=== PATIENT | male | born 1950 | race Caucasian/White ===

== ENCOUNTER 2023-06-25 15:44 | Outpatient (REF) | payer MEDICARE, SELFPAY ==
[2023-06-25 16:10] LABS: Ammonia 14 umol/L (13-55)
[2023-06-25 17:20] LABS: Alanine Aminotransferase 45 U/L (0-40); Albumin Level 3.6 g/dL (3.5-5.0); Alkaline Phosphatase 98 U/L (39-117); Anion Gap 12 (12-20); Aspartate Amino Transferase 41 U/L (5-37); Bilirubin Direct 0.3 mg/dL (0.0-0.5); Bilirubin Total 0.7 mg/dL (0.0-1.0); Blood Urea Nitrogen 32 mg/dL (9-16); Calcium 9.4 mg/dL (8.4-10.2); Carbon Dioxide 30 mmol/L (22-29); Chloride 105 mmol/L (96-108); Estimated Glomerular Filt Rate > 60; Glucose Random 89 mg/dL (60-115); Potassium 5.6 mmol/L (3.3-5.1); Sodium 141 mmol/L (135-145); Total Protein 6.3 g/dL (6.5-8.0)
== END 2023-06-25 15:45 | disposition home or self-care (01) ==
LOC: HO.LAB 15:44
PROVIDERS: PCP Pediatrics; Visit Provider Psychiatry & Neurology Neurology
DX: R42 Dizziness and giddiness (principal)
CPT/HCPCS: 36415; 80053; 82140; 82248

== ENCOUNTER → 2024-08-24 13:23 | Outpatient (REF) | payer MEDICARE, SELFPAY ==
--- OUTSIDE RECORDS SUMMARY | 2024-08-24 15:24 | XMS_ITS | Clinical Summary ---
Author Organization [facility] Address [address] [place] [address] Care Team Providers Care Cattle Sorter Name Role Phone Ross Wise MD Primary Care Provider [phone] Allergies Active Allergy Reactions Criticality Noted Date Comments Bupropion Other (See Comments) High 09/18/2021 Ataxia Sulfamethoxazole-Trimethop rim Other (See Comments),Rash/Dermatitis High 02/07/2012 shingles Medications atorvastatin (LIPITOR) 20 MG tablet Take 1 tablet (20 mg total) by mouth daily. 4 Active PROzac 40 MG capsule Take 1 capsule (40 mg total) by mouth daily. Brand name medically necessary 4 Active lisinopril (PRINIVIL,ZeSTR IL) 5 MG tablet Take 1 tablet (5 mg total) by mouth daily. 4 Active meclizine (ANTIVERT) 12.5 MG tablet Take 1 tablet (12.5 mg total) by mouth 2 (two) times a day as needed. 4 Active divalproex (DEPAKOTE) [address] Take 1 tablet (250 mg total) by mouth 2 (two) times a day. Active Resolved Problems Problem Noted Date Diagnosed Date Resolved Date Seizure 09/09/2023 09/11/2023 Social History Tobacco Use Types Packs/Day Years Used Date Smoking Tobacco: Unknown Tobacco Cessation:Counseling Given: No Passive Exposure Comments:unknown-PT poor historian [facility] Utilities Answer Date Recorded In the past 12 months has e electric, gas, oil, or water company threatened to shut off services in your home? No 09/10/2023 AUDIT-C Answer Date Recorded Q1: How often do you have a drink containing alcohol? Never 09/10/2023 Q2: How many drinks containi ng alcohol do you have on a typical day when you are drinking? Patient does not drink Q3: How often do you have si x or more drinks on one occasion? Never 09/10/2023 Hunger Vital Sign Answer Date Recorded Within the past 12 months, y ou worried that your food would run out before you got the money to buy more. Never true 09/10/19 24 Within the past 12 months, t he food you bought just didn't last and you didn't have money to get more. Never true 09/10/2023 PRAPARE - Transportation Answer Date Re corded In the past 12 months, has l ack of transportation kept you from medical appointments or from getting medications? No 08/31 In the past 12 months, has l ack of transportation kept you from meetings, work, or from getting things needed for daily living? No 09/10/2023 Housing Stability Vital Sign Answer John e Recorded In the last 12 months, was t here a time when you were not able to pay the mortgage or rent on time? No 09/10/2023 In the last 12 months, how many places have you lived? 1 09/10/2023 In the last 12 months, was t here a time when you did not have a steady place to sleep or slept in a fdc (including now)? No 09/10/2023 Sex and Gender Information Value Date Recorded Sex Assigned at Male 09/09/2023 5:34 AM EDT Legal Sex Male 11:07 PM EDT Gender Identity Male 09/09/2023 5:34 AM EDT Sexual Orientation Choose not to disclose 2023 5:34 AM EDT Last Filed Vital Signs Vital Sign Reading Time Taken Comments Blood Pressure 98/60 09/11/2023 12:00 PM EDT Pulse 61 09/11/2023 12:00 PM EDT Temperature 36.2 C (97.1 F) 09/11/2023 12:00 PM EDT Respiratory Rate 18 09/11/2023 12:00 PM EDT Oxygen Saturation 97% 09/11/2023 12:00 PM EDT Inhaled Oxygen Concentration - - Weight 67.1 kg (148 lb) 09/10/2023 7:40 AM EDT Height 177.8 cm (5' 10 ) 09/10/2023 7:40 AM EDT Body Mass Index 21.24 09/10/2023 7:40 AM EDT Plan of Treatment Health Maintenance Due Date Last Done Comments Hepatitis C Virus Screening 1950 DTaP/Tdap/Td Vaccines (1 - Tdap) 02/07/1967 Pneumococcal Vaccines 50+ (1 of 1 - PCV) 02/07/1998 Zoster (Shingles) Vaccine (1 of 2) 02/07/1998 RSV Vaccine 60 years and older and Patients (1 - 1-dose 75+ series) 02/07/2023 COVID-19 Vaccine (4 - 2023-2 5 season) 2023 11/22/2021, 05/13/2020, 04/22/2020 Influenza Vaccine 10/01/2024 11/27/2022, 12/10/2021 Hepatitis B Vaccines Aged Out No long er eligible based on patient's age to complete this topic Insurance MEDICARE PART A & B [facility] Advance Directives * Full Code (Latest Code Status on File) Date Activated Date Inactivated Comments 09/09/2023 1:48 PM Care Teams Cattle Sorter Relationship Specialty Start Date End Date Ross Wise MD [address] [facility] [address] [place] [address] PCP - General Pediatric, General 09/09/23
== END ==
LOC: HO.SL 13:23
PROVIDERS: PCP Pediatrics; Visit Provider Psychiatry & Neurology Neurology
DX: G47.33 Obstructive sleep apnea (adult) (pediatric) (principal)
CPT/HCPCS: 95806

== ENCOUNTER → 2024-08-24 21:00 | Outpatient (BNV) | payer MEDICARE, SELFPAY | PROVIDERS: PCP Pediatrics; Visit Provider Internal Medicine | DX: G47.33 Obstructive sleep apnea (adult) (pediatric) (principal) | CPT/HCPCS: 95806 ==

== ENCOUNTER 2024-09-15 13:19 | Outpatient (AMB) | payer MEDICARE, SELFPAY ==
--- OUTSIDE RECORDS SUMMARY | 2024-09-15 14:07 | XMS_ITS | Referral Summary ---
Author Organization [facility] Address [address] [place] [address] Care Team Providers Care Prototyper Name Role Phone Ross Wise Primary Care Provider [phone] Allergies Active Allergy Reactions Criticality Noted Date Comments Sulfamethoxazole-Trimetho prim Rash,Other (see comments) High 02/07/2012 shingles Medications amLODIPine (NORVASC) 10 mg tablet Take 10 mg by mouth every evening. 3 8 Active PROZAC 40 mg capsule Take 120 mg by mouth once a day. 8 Active vitamin D3 1,000 unit capsule Take 1 capsule by mouth. Active aspirin-acetami nophen-caffeine (EXCEDRIN EXTRA STRENGTH) 250-250-65 mg per tablet Take 1 tablet by mouth every 6 hours as needed for headache. Active loratadine (CLARITIN) 10 mg tablet Take 1 tablet by mouth. Active multivitamin-Ca -iron-minerals (MULTIPLE VITAMIN, WOMENS) tablet 2 Active amantadine (SYMMETREL) 100 mg capsuleIndicati ons:Cataplexy and narcolepsy (HCC) Take 1 capsule (100 mg total) by mouth 2 times a day. Take once daily for the first week 60 capsule 2 8 Active Additional Information Patient not taking.Reported on 01/15/2018 multivitamin (THERAGRAN) tablet Take 1 tablet by mouth daily. Active lisinopriL (PRINIVIL,ZESTR IL) 10 mg tablet Take 10 mg by mouth once a day. 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 -Today we will recheck a spot albumin to creatinine ratio Assessment & Plan (10/28/2019 11:30 AM EDT): When last checked his spot albumin to creatinine ratio was less than 30 likely reflecting the use of lisinopril. -Cornerstone of therapy continues to be use of lisinopril currently dosed at 10 mg a day. Assessment & Plan (07/16/2018 12:11 PM EDT): When last checked his spot albumin to creatinine ratio was in the normal range. Today we will update that parameter mainstay of therapy continues to be lisinopril utilizing its anti-proteinuric effect. Assessment & Plan (01/16/2018 5:40 PM EST): His recent protein creatinine ratio improved to less than 30. Continue with lisinopril 10 mg daily. Assessment & Plan (07/07/2017 5:06 PM EDT): He has mild proteinuria of microalbumin creatinine ratio more than 30. Continue with lisinopril 10 mg daily. Vitamin D deficiency 07/07/2017 Assessment & Plan (01/16/2018 5:40 PM EST): Continue with vitamin D supplementation. Assessment & Plan (07/07/2017 5:06 PM EDT): Continue with current vitamin D supplementation. Hypokalemia 07/04/2017 Assessment & Plan (11/02/2020 4:06 PM EDT): When last checked his serum potassium was within the normal range today we will recheck this level to determine whether or not supplementation is required. Assessment & Plan (10/28/2019 11:31 AM EDT): His most recent serum potassium was 4.7 which is in the normal range. At this time he does not need potassium supplementation. We will recheck his values today. Assessment & Plan (07/16/2018 12:12 PM EDT): Today we will reevaluate his serum potassium level of note he is not been on potassium chloride pills. And I will remove this from his medication list. Assessment & Plan (01/16/2018 5:38 PM EST): His potassium is currently normal range. He is not on any continuous potassium supplementation. Assessment & Plan (07/07/2017 5:04 PM EDT): His recent potassium today 4.8. Can maintain adequate potassium rich diet. No indication for oral potassium supplementation as present time. Nephrolithiasis 07/04/2017 Assessment & Plan (11/02/2020 4:05 PM EDT): Since he has not had any episodes of renal colic passage of stones or gravelly material since our last visit and is able to maintain adequate fluid intake I do not see any indication to repeat a 24-hour stone risk profile at this time. -He is advised to contact me should he develop renal colic or passed a kidney stone. Assessment & Plan (10/28/2019 11:30 AM EDT): Since our last visit he has had no recurrence of kidney stones or passage of gravel. Of asked that he maintain appropriate hydration with approximately 2 L of fluid per day. Assessment & Plan (07/16/2018 12:11 PM EDT): Since her last visit he has had no recurrence of kidney stones. He continues to work on adequate hydration. Although he is having more difficulties swallowing. His does note coughing at times when he eats and drinks. They are seeing a specialist to help evaluate this. Assessment & Plan (01/16/2018 5:39 PM EST): He likely has previous history of calcium stones. Advised to increase gradual fluid intake with a target urine output more than 2 L a day. We will repeat his 24 hours urine for uro- risk assessment after improvement of his fluid intake. Assessment & Plan (07/07/2017 5:04 PM EDT): Unclear about the absence of renal stone in the past. We plan to do 24 hours urine analysis for urine risk assessment. Essential hypertension 07/04/2017 Assessment & Plan (11/02/2020 4:05 PM EDT): Based on his blood pressure reading today in clinic he continues to have excellent control of his blood pressure on amlodipine 10 mg a day and lisinopril 10 mg a day. -I see no reason to make adjustments to his antihypertensive regimen at this time. Assessment & Plan (10/28/2019 11:29 AM EDT): Based on blood pressure readings today he continues to have appropriate control of his blood pressure on amlodipine 10 mg a day and lisinopril 10 mg a day. I see no reason to make adjustments to his anti-hypertensive regimen Assessment & Plan (07/16/2018 12:10 PM EDT): Based on today's blood pressure reading he does have adequate control of his blood pressure on amlodipine 10 mg a day and lisinopril 10 mg a day. I see no reason to change his antihypertensive regimen. Assessment & Plan (01/16/2018 5:38 PM EST): His initial blood pressure was elevated and repeat blood pressure 145/80. His home blood pressure readings, systolic less than 130s. We will continue with his current home antihypertensive medications. Assessment & Plan (07/07/2017 5:03 PM EDT): His blood pressure currently controlled at target. We will continue with amlodipine and lisinopril at his current dose without any change. Social History Tobacco Use Types Packs/Day Years Used Date Smoking Tobacco: Never Smokeless Tobacco: Never Alcohol Use Standard Drinks/Week Comments No 0 (1 standard drink = 0.6 oz pur e alcohol) Sex and Gender Information Value Date Recorded Sex Assigned at Male 02/13/2022 1:40 PM EST Legal Sex Male 1:51 PM EDT Gender Identity Male 02/13/2022 1:40 PM EST Sexual Orientation Bisexual 02/13/2022 1: 40 PM EST Last Filed Vital Signs Vital Sign Reading Time Taken Comments Blood Pressure 105/68 11/02/2020 11:05 AM EDT Pulse 81 11/02/2020 11:05 AM EDT Temperature 36.5 C (97.7 F) 11/02/2020 11:05 AM EDT Respiratory Rate - - Oxygen Saturation - - Inhaled Oxygen Concentration - - Weight 69.9 kg (154 lb) 11/02/2020 11:05 AM EDT Height 175.3 cm (5' 9 ) 10/28/2019 10:43 AM EDT Body Mass Index 22.74 10/28/2019 10:43 AM EDT Plan of Treatment Not on file Procedures * Due to [place] Wiper law, this organization might not be sharing negative HIV tests. Procedure Name Priority Date/Time Associated Diagnosis Comments RENAL FUNCTION PANEL Routine 11/02/2020 11:43 AM EDT Hypokalemia from Last 3 Months or Most Recently Relevant to Health Maintenance Results * Due to [place] Wiper law, this organization might not be sharing negative HIV tests. * (ABNORMAL) Renal Function Panel (11/02/2020 11:43 AM EDT) NA 141 135 - 145 mmol/L 11/02/2020 12:23 PM EDT [facility] K 4.5 3.5 - 5.3 mmol/L 11/02/2020 12:23 PM EDT [facility] Cl 105 97 - 110 mmol/L 11/02/2020 12:23 PM EDT [facility] CO2 28 24 - 32 mmol/L 11/02/2020 12:23 PM EDT [facility] Anion Gap 8 5 - 15 11/02/2020 12:23 PM EDT [facility] Glucose 60(L) 70 - 99 mg/dL 11/02/2020 12:23 PM EDT [facility] BUN 37(H) 7 - 23 mg/dL 11/02/2020 12:23 PM EDT [facility] Creatinine 1.24 0.60 - 1.30 mg/dL 11/02/2020 12:23 PM EDT [facility] eGFR Non- 58(L) >=90 mL/min/BSA 11/02/2020 12:23 PM EDT [email or web address] eGFR 67(L) >=90 mL/min/BSA 11/02/2020 12:23 PM EDT [facility] Comment: Units = mL/min/1.73 m2 Glomerular Filtration Rate (GFR) is estimated based on the CKD-EPI Creatinine Equation (2009). Stage Description GFR 1 Normal >=90 mL/min/BSA 2 Mildly decreased GFR 60-89 mL/min/BSA 3 Moderately decreased GFR 30-59 mL/min/BSA 4 Severely decreased GFR 15-29 mL/min/BSA 5 Kidney Failure <15 mL/min/BSA Calcium 8.9 8.7 - 10.7 mg/dL 11/02/2020 12:23 PM EDT [facility] Phosphorus 2.6 2.5 - 4.5 mg/dL 11/02/2020 12:23 PM EDT [facility] Albumin 3.9 3.5 - 4.8 g/dL 11/02/2020 12:23 PM EDT [facility] Blood Structure of peripheral vein / Unknown Venipuncture / Unknown 11/02/2020 11:43 AM EDT 11/02/2020 11:55 AM EDT us Viet Carrizales MD LAB BLOOD ORDERABLES Final Result [facility] [address] [place] [address], from Last 3 Months or Most Recently Relevant to Health Maintenance Insurance MEDICARE [facility] Care Teams Prototyper Relationship Specialty Start Date End Date Ross Wise [address] [facility] [address] [place] [address] PCP - General Family Medicine 05/20/17
--- OUTSIDE RECORDS SUMMARY | 2024-09-15 14:07 | XMS_ITS | Clinical Summary ---
Author Organization [facility] Address [address] [place] [address] Care Team Providers Care Remittance Clerk Name Role Phone Ross Wise MD Primary Care Provider Allergies Active Allergy Reactions Criticality Noted Date [...] Given: No Passive Exposure Comments:unknown-PT poor historian [facility] Utilities Answer Date Recorded In the past [...] place to sleep or slept in a assisted (including now)? No 09/10/2023 Sex and Gender [...] topic Insurance MEDICARE PART A & B [facility] Advance Directives * Full Code (Latest Code Status on File) Date Activated Date Inactivated Comments 09/09/2023 1:48 PM Care Teams Remittance Clerk Relationship Specialty Start Date End Date Ross Wise MD [address] [facility] [address] [place] [address] PCP - General Pediatric, General 09/09/23
--- OUTSIDE RECORDS SUMMARY | 2024-09-15 14:07 | XMS_ITS ---
Author Name [facility] Results Test Name/Text Value Interpretation Date Range Source Bilirub SerPl-mCnc 0.8 mg/dL Normal 09/11/2023 0.2 - 1 [facility] ALT SerPl-cCnc 71.0 U/L Above high normal 09/11/2023 10 - 5 5 [facility] Albumin SerPl-mCnc 3.6 g/dL Normal 09/11/2023 3.4 - 4.8 [facility]CT CO2 SerPl-sCnc 26.0 mmol/L Normal 09/11/2023 22 - 33 HH CCT Albumin/Glob SerPl 1.6 Ratio Normal 09/11/2023 1 - 3 [facility] Chloride SerPl-sCnc 105.0 mmol/L Normal 09/11/2023 98 - 1 07 [facility] Anion Gap Bld-sCnc 10.0 Normal 09/11/2023 7 - 17 H[facility]CT GFR/BSA.pred SerPlBld [id number] 70.0 Normal 09/11/2023 59 - [facility]CT Glucose SerPl-mCnc 83.0 mg/dL Normal 09/11/2023 65 - 99 H[facility]CT Prot SerPl-mCnc 5.9 g/dL Below low normal 09/11/2023 6.3 - 8.3 H[facility] BUN/Creat SerPl 20.0 Ratio Normal 09/11/2023 10 - 25 HH CCT Sodium SerPl-sCnc 141.0 mmol/L Normal 09/11/2023 136 - 14 5 H[facility]CT Creat SerPl-mCnc 1.1 mg/dL Normal 09/11/2023 0.5 - 1.3 HH CCT BUN SerPl-mCnc 22.0 mg/dL Above high normal 09/11/2023 8 - 2 1 H[facility]CT Potassium SerPl-sCnc 4.2 mmol/L Normal 09/11/2023 3.4 - 5 .3 HHCCT ALP SerPl-cCnc 86.0 U/L Normal 09/11/2023 45 - 128 HHCC T AST SerPl-cCnc 91.0 U/L Above high normal 09/11/2023 10 - 5 5 H[facility]CT Calcium SerPl-mCnc 8.8 mg/dL Normal 09/11/2023 8.7 - 10.5 H[facility]CT Globulin Ser Calc-mCnc 2.3 g/dL Normal 09/11/2023 1.5 - 3.9 H[facility]CT WBC num Bld Auto 7.0 Thou/uL Normal 09/11/2023 4 - 11 H[facility] Hct VFr Bld Auto 41.2 % Normal 09/11/2023 39 - 54 HH CCT Platelet num Bld Auto 175.0 Thou/uL Normal 09/11/2023 150 - 450 H[facility] PMV Bld Auto 11.7 fL Normal 09/11/2023 7.5 - 12.5 H[facility]CT RBC num Bld Auto 4.29 Mil/uL Below low normal 09/11/2023 4.5 - 6.2 H[facility]CT MCV RBC Auto 96.0 fL Normal 09/11/2023 80 - 100 H[facility]CT RDW RBC Auto-Rto 11.7 % Normal 09/11/2023 11.5 - 14.5 H[facility]CT Hgb Bld-mCnc 13.4 g/dL Normal 09/11/2023 13 - 17.7 HHCCT MCH RBC Qn Auto 31.2 pg Above high normal 09/11/2023 27 - 31 HHCCT MCHC RBC Auto-mCnc 32.5 g/dL Normal 09/11/2023 30 - 36 HHCCT AST SerPl-cCnc 85.0 U/L Above high normal 09/10/2023 10 - 5 5 H[facility]CT Albumin/Glob SerPl 1.5 Ratio Normal 09/10/2023 1 - 3 H[facility]CT BUN SerPl-mCnc 24.0 mg/dL Above high normal 09/10/2023 8 - 2 1 H[facility]CT Potassium SerPl-sCnc 4.5 mmol/L Normal 09/10/2023 3.4 - 5 .3 HHCCT GFR/BSA.pred SerPlBld [id number] 78.0 Normal 09/10/2023 59 - HHCCT ALP SerPl-cCnc 94.0 U/L Normal 09/10/2023 45 - 128 HHCC T BUN/Creat SerPl 24.0 Ratio Normal 09/10/2023 10 - 25 HH CCT Globulin Ser Calc-mCnc 2.4 g/dL Normal 09/10/2023 1.5 - 3.9 HHCCT CO2 SerPl-sCnc 25.0 mmol/L Normal 09/10/2023 22 - 33 HH CCT Albumin SerPl-mCnc 3.6 g/dL Normal 09/10/2023 3.4 - 4.8 HHCCT Glucose SerPl-mCnc 71.0 mg/dL Normal 09/10/2023 65 - 99 H[facility]CT Anion Gap Bld-sCnc 9.0 Normal 09/10/2023 7 - 17 H[facility]CT Creat SerPl-mCnc 1.0 mg/dL Normal 09/10/2023 0.5 - 1.3 HH CCT Sodium SerPl-sCnc 136.0 mmol/L Normal 09/10/2023 136 - 14 5 HHCCT Bilirub SerPl-mCnc 1.2 mg/dL Above high normal 09/10/2023 0. 2 - 1 HHCCT ALT SerPl-cCnc 61.0 U/L Above high normal 09/10/2023 10 - 5 5 H[facility]CT Chloride SerPl-sCnc 102.0 mmol/L Normal 09/10/2023 98 - 1 07 HHCCT Prot SerPl-mCnc 6.0 g/dL Below low normal 09/10/2023 6.3 - 8.3 HHCCT Calcium SerPl-mCnc 9.0 mg/dL Normal 09/10/2023 8.7 - 10.5 HHCCT Phosphate SerPl-mCnc 2.8 mg/dL Normal 09/09/2023 2.7 - 4. 5 H[facility]CT Chloride SerPl-sCnc 103.0 mmol/L Normal 09/09/2023 98 - 1 07 HHCCT BUN SerPl-mCnc 21.0 mg/dL Normal 09/09/2023 8 - [address] Anion Gap Bld-sCnc 11.0 Normal 09/09/2023 7 - 17 HHCCT BUN/Creat SerPl 21.0 Ratio Normal 09/09/2023 10 - 25 HH CCT Potassium SerPl-sCnc 4.6 mmol/L Normal 09/09/2023 3.4 - 5 .3 HHCCT Sodium SerPl-sCnc 138.0 mmol/L Normal 09/09/2023 136 - 14 5 HHCCT Calcium SerPl-mCnc 8.7 mg/dL Normal 09/09/2023 8.7 - 10.5 HHCCT GFR/BSA.pred SerPlBld [id number] 78.0 Normal 09/09/2023 59 - HHCCT CO2 SerPl-sCnc 24.0 mmol/L Normal 09/09/2023 22 - 33 HH CCT Glucose SerPl-mCnc 74.0 mg/dL Normal 09/09/2023 65 - 99 HHCCT Creat SerPl-mCnc 1.0 mg/dL Normal 09/09/2023 0.5 - 1.3 HH CCT Magnesium SerPl-mCnc 2.0 mg/dL Normal 09/09/2023 1.6 - 2. 7 H[facility]CT Monocytes num Bld Auto 0.48 Thou/uL Normal 09/09/2023 0.2 - 1.5 HHCCT Imm Granulocytes/leuk NFr Bld Auto 1.2 % Normal 09/09/2023 H[facility]CT MCHC RBC Auto-mCnc 32.2 g/dL Normal 09/09/2023 30 - 36 HHCCT MCH RBC Qn Auto 31.4 pg Above high normal 09/09/2023 27 - 31 H[facility]CT RBC num Bld Auto 4.4 Mil/uL Below low normal 09/09/2023 4.5 - 6.2 HHCCT PMV Bld Auto 11.8 fL Normal 09/09/2023 7.5 - 12.5 HHCCT Lymphocytes num Bld Auto 1.2 Thou/uL Below low normal 09/09/2023 1.5 - 4.5 HHCCT Neutrophils/leuk NFr Bld Auto 77.6 % Normal 09/09/2023 HHCCT WBC num Bld Auto 9.0 Thou/uL Normal 09/09/2023 4 - 11 HHCCT Imm Granulocytes num Bld Auto 0.11 Thou/uL Above high normal 09/09/2023 0 - 0.1 HHCCT Eosinophil num Bld Auto 0.2 Thou/uL Normal 09/09/2023 0 - 0.7 HHCCT Monocytes/leuk NFr Bld Auto 5.3 % Normal 09/09/2023 HHCCT Basophils/leuk NFr Bld Auto 0.4 % Normal 09/09/2023 HHCCT Basophils num Bld Auto 0.04 Thou/uL Normal 09/09/2023 0 - 0.2 HHCCT Eosinophil/leuk NFr Bld Auto 2.2 % Normal 09/09/2023 HHCCT MCV RBC Auto 97.0 fL Normal 09/09/2023 80 - 100 HHCCT Hgb Bld-mCnc 13.8 g/dL Normal 09/09/2023 13 - 17.7 HHCCT Platelet num Bld Auto 176.0 Thou/uL Normal 09/09/2023 150 - 450 H[facility]CT RDW RBC Auto-Rto 11.7 % Normal 09/09/2023 11.5 - 14.5 HHCCT Hct VFr Bld Auto 42.8 % Normal 09/09/2023 39 - 54 HH CCT Lymphocytes/leuk NFr Bld Auto 13.3 % Normal 09/09/2023 HHCCT Neutrophils num Bld Auto 7.0 Thou/uL Normal 09/09/2023 2 - 7.5 HHCCT Valproate Free SerPl-mCnc 9.9 mg/L Normal 09/11/2023 4.8 - 17.3 HHCCT Valproate SerPl-mCnc 62.0 mg/L Normal 09/09/2023 50 - 100 H[facility]CT WBC num/area UrnS HPF 0.0 per hpf Normal 09/09/2023 0 - 4 HHCCT RBC num/area UrnS HPF >25.0 per hpf Above high normal 2023 0 - 4 H[facility]CT Color Ur Yellow Normal 09/09/2023 H[facility]CT Leukocyte esterase Ur Ql Strip Negative Normal 09/09/2023 - [facility]CT Clarity Ur Clear Normal 09/09/2023 H[facility]CT Sp Gr Ur Strip 1.05 Above high normal 09/09/2023 1.003 - 1.03 HHCCT Nitrite Ur Ql Strip Negative Normal 09/09/2023 - HHCCT pH Ur Strip 6.0 Normal 09/09/2023 5 - 8 HHCCT Bilirub Ur Strip-mCnc Negative Normal 09/09/2023 - [facility] Prot Ur Strip-mCnc Negative Normal 09/09/2023 - [facility] Hgb Ur Ql Strip Small Abnormal 09/09/2023 - [facility] CT Ketones Ur Strip-mCnc Trace Abnormal 09/09/2023 - [facility] Glucose Ur Strip-nc 0.0 mg/dL Normal 09/09/2023 0 - 99 [facility] Encounters Encounter Type Encounter Reason Primary Diagnosis Location Date Inpatient Unspecified convulsions Unspecified convulsions [place] [facility] 09/09/2023 Care Team Organization Name Specialty Phone Email [facility] Date [facility] 09/09/2023 [facility] 09/09/2023 05/19/2024 [place] [facility] 09/09/2023
--- NOTE | 2024-09-15 14:15 | MHC.OFFVIS ---
Intake Visit Reasons: VALENTÍN, Narcolepsy, Sz Allergies No Known Allergies Allergy (Verified 09/13/24 12:38) HPI Comments Details: Sleeps 18 hrs a day. Not using CPAP. No Sz recurrence. Nightmares are worse. Constant HOLLIDAY for which he takes 2 Excedrin twice a day.? Seeing psychiatrist tomorrow . Last Sz on September 07. Restarted on Depakote 500mg bid . September 17.??for Rehab for 3 weeks. No Sz since. He is back to his baseline with poor balance and his knee gives out. He is in w/c and transfers to bed and chair by himself with effort. OT / PT at home. Vertigo is better. Swallowing and aspiration is better. Not using his new CPAP mask. 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 He falls frequently, and had 2 concussions in January 2023 and hit his head. On January 25 he had a 15 min. generalized seizure that was witnessed and he was taken to the hospital where a CT scan and CT angiogram was negative. He was started on Keppra 250 mg twice a day which he was unable to take because of side effects and mental changes and developed a lot of agitation with it. He apparently had an EEG, routinely, which was normal. No previous history of seizures. 01/25/[address] angio normal EEG apparently normal.08/26/24 Sleep study shows severe VALENTÍN with O2 sats down to 79% an dbelow 88% for 33 minutes. [facility] Medical History (Updated 09/15/24 @ 14:26 by Abebe Belcher MD) VALENTÍN (obstructive sleep apnea) Narcolepsy Cerebellar ataxia Seizure disorder Physical Exam Neuro Other: Neurological: Abnormal neurological findings:??Cerebellar ataxia including appendicular ataxia on dppaup-dy-jgum test.? Walks with a walker.? Nystagmus on lateral gaze.?Mental Status:??alert and oriented X 3,?Normal attention, orientation, memory and affect.?Cranial Nerves:??Pupils are equal, round and reactive to light. Fundoscopy shows normal disc bilaterally. External occular muscles are intact with nystagmus on lateral gaze. Visual pope are full, no ptosis. Face is symmetrical, no facial weakness or droop. Facial sensations are normal. Tongue protrudes in midline. Palate elevates symmetrically. Shoulder shrugging is normal..?Motor Examination:??Normal muscle tone, bulk and strength,?No atrophy or fasciculations,?No drift of the extended upper extremities,?Deep tendon reflexes are 2+?,?Plantars are flexor?.?Straight Leg Raising:??90 degrees.?Sensory Exam:??Normal light touch, temperature, pinprick, vibration and joint-position sensations?,?Rhomberg sign is absent.?Coordination:??Cerebellar? ataxia,?no titubation,?zsngae-kt-zuth, touw-wblm-imhn test and rapid alternating movements were abnormal.?Gait Exam:??Broad-based cerebellar gait using a walker.? Unable to stand on a narrow base or walk with a narrow base, without falling.?Cerebellar Signs:??Dysmetria on Kxuqph-qe-adfl and icsi-lt-chqk?.?Extrapyramidal System:??No tremor, rigidity with normal facial expressions,?No bradykinesia, no bradyphrenia. Normal arm swing and posture. No propulsion or retropulsion.?Speech:??Normal,?no dysphasia or dysarthria..? Mini Mental Status Exam: Level of Consciousness:??Alert.?Orientation:??Knows correct year, month, date, day and season,?Knows correct city, county and state. Knows correct location and floor.?Registration:??Able to register 3 objects.?Attention:??Serial 7's performed accurately.?Recall:??Able to recall 3 out of 3 objects.?Language:??Normal spontaneous speech, fluency, repetition,naming, comprehension, reading and writing.?Total Score:??30/30.? General Examination: GENERAL APPEARANCE:??normal,?in no acute distress.?HEAD:??normocephalic,?atraumatic.?EYES:??sclera non-icteric,?conjunctiva clear.?EARS:??auditory canal clear,?tympanic membrane intact, clear.?NOSE:??no lesions.?ORAL CAVITY:??gums normal,?mucosa moist,?no lesions.?THROAT:??clear.?NECK/THYROID:??no cervical lymphadenopathy,?thyroid normal,?neck supple, full range of motion,?no carotid bruit.?SKIN:??no rashes,?no significant birthmarks.?HEART:??S1, S2 normal,?no murmurs.?LUNGS:??clear anteriorly and posteriorly.?CHEST:??no gross rib deformity,?clear to auscultation.?BACK:??normal exam of spine.?EXTREMITIES:??no edema.?PERIPHERAL PULSES:??normal.?PSYCH:??alert, oriented,?cognitive function intact,?cooperative with exam.? 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 Sleep specialty referral Orders: Referrals Sleep Medicine Referral G47.33 - Obstructive sleep apnea (adult) (pediatric), G47.419 - Narcolepsy without cataplexy Coding Level of Care Code Est Pt Level 4 (26284) Diagnoses Narcolepsy G47.419 VALENTÍN (obstructive sleep apnea) G47.33
== END 2024-09-15 14:33 | disposition home or self-care (01) ==
LOC: HO.HSM 13:20
PROVIDERS: PCP Pediatrics; Referring Provider Pediatrics; Visit Provider Psychiatry & Neurology Neurology
DX: G47.419 Narcolepsy without cataplexy (principal); G47.33 Obstructive sleep apnea (adult) (pediatric)
CPT/HCPCS: 99214

== ENCOUNTER → 2024-09-15 13:19 | Outpatient (BNVA) | payer MEDICARE, SELFPAY | PROVIDERS: PCP Pediatrics; Referring Provider Pediatrics; Visit Provider Psychiatry & Neurology Neurology | DX: G47.419 Narcolepsy without cataplexy (principal); G47.33 Obstructive sleep apnea (adult) (pediatric) | CPT/HCPCS: 99212 ==

== ENCOUNTER 2024-12-14 15:05 | Outpatient (AMB) | payer MEDICARE, SELFPAY ==
--- NOTE | 2024-12-14 15:10 | A.OFFVIS_ITS ---
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 Patient had in-lab PSG through [employer], and HST through [employer]. Patient goes to bed around 12am and wakes up at 1pm next day. naps 3-4hrs. Patient states excessive sleep since he was in High school. Tried Xyrem, modafinil. Looking to trial Sunosi. Uses CPAP does not feel like helps. [facility] for [facility]. Accompanied by: Spouse Allergies No Known Allergies Allergy (Verified 12/14/24 15:19) HPI Comments Details: 74 year old male presents for an evaluation of Narcolepsy. 08/2024 HST c/w AHI of 32 and oxygen nadirs to 91% with <88% for 33 min. Start cpap therapy and correct for nocturnal hypoxemia with in lab psg and titration once compliant on therapy. Feb 2024 he had a seizure lasting 30-min, his entire body shook, his eyes rolled into the back of his head, and he lost conscious, did not bite his tongue or have urinary incontenence. He was taken to [facility] and started on Divalproex 250mg po BID. Pt has a h/o cerebellar ataxia, he loses balance, has multiple falls due to tripping, and nystagmus, vertigo with dysarthria. He has difficulty with fine motor activities and 90% of the time is wheelchair bound. He has a home health aide visit him 1x a week and helps him to shower and get dressed. He needs support with all his ADLs. He was diagnosed with Narcolepsy by [facility] and followed by [facility] for years per his . He has tried Modafinil, Xyrem and would now like to start on Sunosi for his symptoms of Narcolepsy disorder. He goes to bed at midnight and wakes up at noon. He can easily fall asleep anywhere. He goes to sleep for a couple of hours after supper. He sleeps about 16 hours a day and does not respond to stimulants. His mood is irritable, has depression and gets anxious so he takes Lexapro 20mg po daily. His diet is stable, memory is poor. [facility] Medical History VALENTÍN (obstructive sleep apnea) Narcolepsy Cerebellar ataxia Seizure disorder Physical Exam Vital Signs: Last Vital Signs Pulse 71 12/14/24 15:14 BP 118/74 12/14/24 15:14 Pulse Ox 96 12/14/24 15:14 Oxygen Delivery Method Room Air 12/14/24 15:14 BMI result Body Mass Index 22.3 wheel chair bound today. Const General: comfortable and tired appearing Nutritional Appearance: average body habitus Orientation/consciousness: patient oriented x3 HEENT Face and sinus: Yes face symmetric Teeth and gingiva: other (mallampti score is 3) Neck Other: unable to rotate the neck, unable to flex or extend Resp Effort & Inspection: normal respiratory effort and able to speak in complete sentences Neuro Other: lateral gaze nystagmus wheel chair bound Dysmetria General: patient oriented x3 Cranial nerves: Yes Midline tongue present and Yes Ability to bilaterally elevate shoulders present Cognition (Neuro): normal cognition Gait exam (Neuro): Assistive device used Motor exam (neuro): 5/5 motor strength present throughout and Normal motor muscle tone present throughout Deep tendon reflexes (DTR's): Right triceps reflex intensity grade: 2+, Left triceps reflex intensity grade: 2+, Rt Biceps (C5, C6): 2+, Left biceps reflex intensity grade: 2+, Right brachioradialis reflex intensity grade: 2+, Left brachioradialis reflex intensity grade: 2+, Right patellar reflex intensity grade: 2+ and Left patellar reflex intensity grade: 2+ Psych Appearance: well kempt Speech and movement: Slowed movement present (Neuro) Thought process: Normal thought process present Thought content: Normal thought content present Results Reviewed Results Reviewed: HST reviewed with pt AHI is 32 and o2 nadirs to 90% with <88% for over 33 min. Start cpap therapy at [id number] and monitor for compliance once. Will send him for in lab titration study with MSLT. Assessment & Plan Assessment & Plan (1) VALENTÍN (obstructive sleep apnea): Code(s): G47.33 - Obstructive sleep apnea (adult) (pediatric) Category: Medical (2) Narcolepsy: Code(s): G47.419 - Narcolepsy without cataplexy Category: Medical Qualifiers: Narcolepsy type: due to underlying condition without cataplexy Qualified Code(s): G47.429 - Narcolepsy in conditions classified elsewhere without cataplexy (3) Hypersomnia: Code(s): G47.10 - Hypersomnia, unspecified Category: Medical (4) Excessive daytime sleepiness: Code(s): G47.19 - Other hypersomnia Category: Medical Plan VALENTÍN on cpap therapy continue using cpap until in lab titration to correct the hypoxemia. ESS MSLT to rule in Narcolepsy Nocturnal hypoxemia and <88% for over 33 min, PSG in lab titration to correct hypoxemia. Medications Will start him on Sunosi once Prior Authorization is approved, pending MSLT [facility] per pt. Past meds tried Modafinil was ineffective Xyrem was ineffective Orders: Orders RT sleep testing - MSLT Today G47.10 - Hypersomnia, unspecified, G47.19 - Other hypersomnia, G47.33 - Obstructive sleep apnea (adult) (pediatric), G47.419 - Narcolepsy without cataplexy RT PSG in-lab sleep titration Today G47.10 - Hypersomnia, unspecified, G47.19 - Other hypersomnia, G47.33 - Obstructive sleep apnea (adult) (pediatric), G47.419 - Narcolepsy without cataplexy Patient Instructions: Do you have daytime tiredness or fatigue? yes Do you fall asleep when inactive? yes Have you ever had episodes of sudden weakness? yes Have you ever had episodes of sudden weakness associated with strong emotions? yes Coding Level of Care Code New Pt Level 4 (22964) Diagnoses VALENTÍN (obstructive sleep apnea) G47.33 Narcolepsy due to underlying condition without cataplexy G47.429 Narcolepsy type: due to underlying condition without cataplexy Hypersomnia G47.10 Excessive daytime sleepiness G47.19
[2024-12-14 15:14] VITALS: BP 118/74; PULSE 71; O2SAT 96; BMI 22.3
--- OUTSIDE RECORDS SUMMARY | 2024-12-14 17:57 | XMS_ITS | Encounter Summary ---
Author Organization [facility] Address [address] [place] [address] Phone Care Team Providers Care Safety Admin Assistant Name Role Phone Ross Wise MD Primary Care Provider [phone] Ross Wise MD Unavailable [phone] Ange Padilla OT Unavailable [phone] Ange Padilla OT Unavailable [phone] Carrie Cho MD Unavailable [phone] Ange Padilla OT Unavailable [phone] Reason for Referral * Occupational Therapy (Routine) - Closed Specialty Diagnoses / Procedures Referred By Lamont t Referred To Contact Occupational Therapy Diagnoses Encounter for rehabilitation Ross Wise MD Phone: tel: fax: [email or web address] [address] [address] Phone: tel: Referral ID Status Reason Start Date Expiration Date Visits Re quested Visits Authorized [id number] Closed 10/05/2020 10/05/2021 1 1 Encounter Details Date Type Department Care Team (Latest Contact Info) Description 10/05/2020 Transcribe Orders [facility] [address] [place] [address] Ross Wise MD [address] [place] [address], [address] [place] [address] [email or web address] Encounter for rehabilitation (Primary Dx) Social History Tobacco Use Types Packs/Day Years Used Date Smoking Tobacco: Never Smokeless Tobacco: Never Alcohol Use Standard Drinks/Week Comments Not Currently 0 (1 standard drink = 0.6 oz pur e alcohol) Sex and Gender Information Value Date Recorded Sex Assigned at Male 07/27/2018 8:05 PM EDT Legal Sex Male 6:21 PM EST Gender Identity Male 07/27/2018 8:05 PM EDT Sexual Orientation Straight 09/02/2021 9: 00 PM EDT documented as of this encounter Plan of Treatment Upcoming Encounters Date Type Department Care Team (Late st Contact Info) Description 01/11/2025 12:30 PM EST Office Visit [facility] [address] [place] [address] Ross Wise MD [address] [place] [address], [address] [place] [address] [email or web address] Zahra Albert OT [address] [place] [address] 02/16/2025 2:40 PM EST Office Visit [facility] [address] [place] [address] [address]rd Floor, [address] [place] [address] Ang Golden MD [address] [place] [address], [address] [address] Scheduled Referrals Name Type Priority Associated Diagnoses Orde r Schedule Ambulatory referral to [facility] Occupational Therapy Outpatient Referral Routine Encounter for rehabilitation Ordered: 10/05/2020 documented as of this encounter Visit Diagnoses Diagnosis Encounter for rehabilitation- Primary documented in this encounter Additional Health Concerns Infection Onset Date Last Indicated Resolved Time CoV-Risk Comment:Neg covid 12/15/2022 12/15/2022 12/16/2022 7:41 AM E DT Assessment Noted Time PHQ-2 Depression Total Score: 1 11/04/19 20 3:40 PM EDT documented as of this encounter Care Teams Safety Admin Assistant Relationship Specialty Start Date End Date Ross Wise MD [address] [facility], [address] [place] [address] PCP - General Family Medicine 01/12/14 Ross Wise MD [address] [facility], [address] [place] [address] [email or web address] Assigned Provider 06/07/23 Ange Padilla, OT [address] [place] [address] [email or web address] Director Of Strategic Sales 12/10/21 2 Ange Padilla, OT [address] [place] [address] Transitions Director Of Strategic Sales 12/27/21 01/01/22 Carrie Cho MD [address] [place] [address] Neurology 02/21/23 Ange Padilla, OT [address] [place] [address] Transitions Director Of Strategic SalesTechnical Account Manager Therapy 09/15/2301/24 documented as of this encounter Additional Source Comments The information contained in this document represents components of the legal health record. It is not the complete legal health record.[facility]
--- OUTSIDE RECORDS SUMMARY | 2024-12-14 17:57 | XMS_ITS | Encounter Summary ---
Author Organization [facility] Address [facility] [employer] [address] [address] Phone Care Team Providers Care Indigo Vat Tender Cloth Name Role Phone Ross Wise MD Primary Care Provider [phone] Ross Wise MD Unavailable [phone] Ange Padilla OT Unavailable [phone] Ange Padilla OT Unavailable [phone] Carrie Cho MD Unavailable [phone] Ange Padilla OT Unavailable [phone] Encounter Details Date Type Department Care Team (Late st Contact Info) Description 12/08/2021 Procedure Pass [facility], [address] [address] Social History Tobacco Use Types Packs/Day Years [...] PM EDT documented as of this encounter Functional Status * Calculated C-SSRS Risk Score (Lifetime/Recent) Answer Date of Assessment Author No Risk Indicated 12/08/2021 4:14 PM EDT Kristen Perrin RN * [place] Suicide Severity Rating Scale (Screener/Recent Self-Report) Question Answer Date of Assessment Author 1. Wish to be (Past 1 Month) No 022 4:14 PM EDT Kristen Art, CHANCE 2. Non-Specific Active Suici danae Thoughts (Past 1 Month) No 12/08/2021 4:14 PM EDT Jasmine Art RN 6. Suicidal Behavior (Lifetime) No 4:14 PM EDT Kristen Art RN documented as of this encounter Plan of Treatment Upcoming Encounters Date Type Department Care Team (Late st Contact Info) Description 01/11/2025 12:30 PM EST Office Visit [facility] [address] [place] [address] Ross Wise MD [address] [place] [address], [address] [place] [address] Zahra Albert OT 8 [place] [address] [email or web address] 02/16/2025 2:40 PM EST Office Visit [facility] [address] [place] [address] 3rd Floor, [address] [place] [address] Ang Golden MD [address] [place] [address], [address] [address] documented as of this encounter Visit Diagnoses Not on filedocumented in this encounter Additional Health Concerns Infection Onset Date Last Indicated Resolved Time CoV-Risk Comment:Neg covid 12/15/2022 12/15/2022 12/16/2022 7:41 AM E DT Assessment Noted Time PHQ-2 Depression Total Score: 1 11/04/19 20 3:40 PM EDT documented as of this encounter Care Teams Indigo Vat Tender Cloth Relationship Specialty Start Date End Date Ross Wise MD [address] [place] [address], [address] [place] [address] PCP - General Family Medicine 01/12/14 Ross Wise MD [address] [facility], [address] [place] [address] Insurance Assigned Provider 06/07/23 Ange Padilla, OT [address] [place] [address] Transitions Welder Assistant 12/10/21 2 Ange Padilla, OT [address] [place] [address] Transitions Welder Assistant 12/27/21 01/01/22 Carrie Cho MD [address] [place] [address] Neurology 02/21/23 Ange Padilla, OT [address] [place] [address] Transitions Welder AssistantSales Correspondence Clerk Therapy 09/15/2301/24 documented as of this encounter Additional Source Comments The information contained in this document represents components of the legal health record. It is not the complete legal health record.[facility]
--- OUTSIDE RECORDS SUMMARY | 2024-12-14 17:57 | XMS_ITS | Encounter Summary ---
Author Organization [facility] Address [address] [place] [address] Phone Care Team Providers Care Revenue Stamp Cutter Name Role Phone Ross Wise MD Primary Care Provider [phone] Ross Wise MD Unavailable [phone] Ange Padilla OT Unavailable [phone] Ange Padilla OT Unavailable [phone] Carrie Cho MD Unavailable [phone] Ange Padilla OT Unavailable [phone] Reason for Referral * Physical Therapy (Routine) - Closed Specialty Diagnoses / Procedures Referred By Lamont t Referred To Contact Physical Therapy Diagnoses Spinocerebellar ataxia Ataxia Carrie Cho MD Phone: tel: fax: [facility] [address] [place] [address] Phone: tel: Referral ID Status Reason Start Date Expiration Date Visits Re quested Visits Authorized [id number] Closed 12/28/2018 12/29/2019 99 99 Encounter Details Date Type Department Care Team (Latest Contact Info) Description 12/28/2018 Transcribe Orders [facility] [address] [place] [address] Carrie Cho MD [address] [place] [address] Spinocerebellar ataxia (Primary Dx); Ataxia Social History Tobacco Use Types Packs/Day Years [...] Description 01/11/2025 12:30 PM EST Office Visit [address] [place] [address] Ross Wise MD [address] [place] [address], [address] [place] [address] Zahra Albert OT 8 [place] [address] 02/16/2025 2:40 PM EST Office Visit [facility] [address] [place] [address] [address]rd Floor, [address] [place] [address] Ang Golden MD [address] [place] [address], [address] [place] [address] Scheduled Referrals Name Type Priority Associated Diagnoses Order Schedule Ambulatory referral to [facility] Physical Therapy Outpatient Referral Routine Spinocerebellar ataxia Ataxia Ordered: 12/28/2018 documented as of this encounter Visit Diagnoses 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 Lack of coordination documented in this encounter Additional Health Concerns Infection Onset Date Last Indicated Resolved Time CoV-Risk Comment:Neg covid 12/15/2022 12/15/2022 12/16/2022 7:41 AM E DT documented as of this encounter Care Teams Revenue Stamp Cutter Relationship Specialty Start Date End Date Ross Wise MD [address] [facility], [address] [place] [address] PCP - General Family Medicine 01/12/14 Ross Wise MD [address] [facility], [address] [place] [address] Insurance Assigned Provider 06/07/23 Ange Padilla, OT [address] [place] [address] Transitions Svp 12/10/21 2 Ange Padilla, OT [address] [place] [address] Transitions Svp 12/27/21 01/01/22 Carrie Cho MD [address] [place] [address] Neurology 02/21/23 Ange Padilla, OT [address] [place] [address] Transitions SvpWaste Collection Driver Therapy 09/15/2301/24 documented as of this encounter Additional Source Comments The information contained in this document represents components of the legal health record. It is not the complete legal health record.[facility]
--- OUTSIDE RECORDS SUMMARY | 2024-12-14 17:57 | XMS_ITS | Encounter Summary ---
Author Organization [facility] Address [facility] [address] [address] Phone Care Team Providers Care Laborer Aquatic Life Name Role Phone Ross Wise MD Primary Care Provider [phone] Ross Wise MD Unavailable [phone] Ange Padilla OT Unavailable [phone] Ange Padilla OT Unavailable [phone] Carrie Cho MD Unavailable [phone] Ange Padilla OT Unavailable [phone] Encounter Details Date Type Department Care Team (Late st Contact Info) Description 12/08/2021 Procedure Pass [facility], [facility] Scan - [address] [address] Social History Tobacco Use Types Packs/Day Years [...] 4:14 PM EDT Kristen Perrin RN * [place] Suicide Severity Rating Scale (Screener/Recent Self-Report) Question [...] 01/11/2025 12:30 PM EST Office Visit [facility] [address] [place] [address] Ross Wise MD [address] [place] [address], [address] [place] [address] Zahra Albert OT 8 [place] [address] 02/16/2025 2:40 PM EST Office Visit [facility] [address] [place] [address] 3rd Floor, [address] [place] [address] Ang Golden MD [address] [place] [address], [address] [address] documented as of this encounter Visit Diagnoses Not on filedocumented in this encounter Additional Health Concerns Infection Onset Date Last Indicated Resolved Time CoV-Risk Comment:Neg covid 12/15/2022 12/15/2022 12/16/2022 7:41 AM E DT Assessment Noted Time PHQ-2 Depression Total Score: 1 11/04/19 20 3:40 PM EDT documented as of this encounter Care Teams Laborer Aquatic Life Relationship Specialty Start Date End Date Ross Wise MD [address] [place] [address], [address] [place] [address] PCP - General Family Medicine 01/12/14 Ross Wise MD [address] [facility], [address] [place] [address] Insurance Assigned Provider 06/07/23 Ange Padilla, OT 30 [place] [address] Transitions Tribunal Member 12/10/21 2 Ange Padilla, OT [address] [place] [address] Transitions Tribunal Member 12/27/21 01/01/22 Carrie Cho MD [address] [place] [address] Neurology 02/21/23 Ange Padilla, OT [address] [place] [address] Transitions Tribunal MemberInternet Specialist Therapy 09/15/2301/24 documented as of this encounter Additional Source Comments The information contained in this document represents components of the legal health record. It is not the complete legal health record.[facility]
--- OUTSIDE RECORDS SUMMARY | 2024-12-14 17:57 | XMS_ITS | Encounter Summary ---
Author Organization [facility] Address [facility] [employer] [address] [address] Phone Care Team Providers Care Pharmacy Coordinator Name Role Phone Ross Wise MD Primary Care Provider [phone] Ross Wise MD Unavailable [phone] Ange Padilla OT Unavailable [phone] Ange Padilla OT Unavailable [phone] Carrie Cho MD Unavailable [phone] Ange Padilla OT Unavailable [phone] Encounter Details Date Type Department Care Team (Late st Contact Info) Description 11/25/2020 Procedure Pass [facility], Ct Scan - [address] [address] Social History Tobacco Use Types Packs/Day Years [...] Description 01/11/2025 12:30 PM EST Office Visit [facility] [address] [place] [address] Ross Wise MD [address] [facility] [place] [address] Zahra Albert, OT [address] [place] [address] 02/16/2025 2:40 PM EST Office Visit [facility] [address] [place] [address] [address]rd Floor, [address] [place] [address] Ang Golden MD [address] [facility], [address] [place] [address] documented as of this encounter Visit Diagnoses Not on filedocumented in this encounter Additional Health Concerns Infection Onset Date Last Indicated Resolved Time CoV-Risk Comment:Neg covid 12/15/2022 12/15/2022 12/16/2022 7:41 AM E DT Assessment Noted Time PHQ-2 Depression Total Score: 1 11/04/19 20 3:40 PM EDT documented as of this encounter Care Teams Pharmacy Coordinator Relationship Specialty Start Date End Date Ross Wise MD [address] [facility] [place] [address] PCP - General Family Medicine 01/12/14 Ross Wise MD [address] [facility] [place] [address] Insurance Assigned Provider 06/07/23 Ange Padilla, OT [address] [place] [address] Transitions Fruit Grower 12/10/21 2 Ange Padilla, OT [address] [place] [address] [email or web address] Transitions Fruit Grower 12/27/21 01/01/22 Carrie Cho MD [address] [place] [address] Neurology 02/21/23 Ange Padilla, OT [address] [place] [address] [email or web address] Transitions Fruit GrowerWelder Gas Tungsten Arc Therapy 09/15/2301/24 documented as of this encounter Additional Source Comments The information contained in this document represents components of the legal health record. It is not the complete legal health record.[facility]
--- OUTSIDE RECORDS SUMMARY | 2024-12-14 17:57 | XMS_ITS | Encounter Summary ---
Author Organization [facility] Address [facility] [employer] [address] [address] Phone Care Team Providers Care Supervisor Maintenance And Custodians Name Role Phone Ross Wise MD Primary Care Provider [phone] Ross Wise MD Unavailable [phone] Ange Padilla OT Unavailable Ange Padilla OT Unavailable [phone] Carrie Cho MD Unavailable [phone] Ange Padilla OT Unavailable [phone] Encounter Details Date Type Department Care Team (Late st Contact Info) Description 12/10/2021 Procedure Pass [facility] [address] [place] [address] Social History Tobacco Use Types Packs/Day Years [...] Encounters Date Type Department Care Team (Late Contact Info) Description 01/11/2025 12:30 PM EST Office Visit [facility] [address] [place] [address] Ross Wise MD [address] [facility], [address] [place] [address] Zahra Albert, OT 8 [place] [address] 02/16/2025 2:40 PM EST Office Visit [facility] [address] [facility] 3rd Floor, [address] [place] [address] Ang Golden MD [address] [facility], [address] [place] [address] documented as of this encounter Visit Diagnoses Not on filedocumented in this encounter Additional Health Concerns Infection Onset Date Last Indicated Resolved Time CoV-Risk Comment:Neg covid 12/15/2022 12/15/2022 12/16/2022 7:41 AM E DT Assessment Noted Time PHQ-2 Depression Total Score: 1 11/04/19 20 3:40 PM EDT documented as of this encounter Care Teams Supervisor Maintenance And Custodians Relationship Specialty Start Date End Date Ross Wise MD [address] [facility] [place] [address] PCP - General Family Medicine 01/12/14 Ross Wise MD [address] [facility] [place] [address] Insurance Assigned Provider 06/07/23 Ange Padilla, OT [address] [place] [address] Transitions Hebrew Cantor 12/10/21 2 Ange Padilla, OT [address] [place] [address] [email or web address] Transitions Hebrew Cantor 12/27/21 01/01/22 Carrie Cho MD [address] [place] [address] Neurology 02/21/23 Ange Padilla, OT [address] [place] [address] Transitions Hebrew CantorSales Program Coordinator Therapy 09/15/2301/24 documented as of this encounter Additional Source Comments The information contained in this document represents components of the legal health record. It is not the complete legal health record.[facility]
--- OUTSIDE RECORDS SUMMARY | 2024-12-14 17:57 | XMS_ITS | Encounter Summary ---
Author Organization [facility] Address [address] [place] [address] Phone Care Team Providers Care Sterile Supply Technician Name Role Phone Ross Wise MD Primary Care Provider [phone] Ross Wise MD Unavailable [phone] Ange Padilla OT Unavailable [phone] Ange Padilla OT Unavailable [phone] Carrie Cho MD Unavailable [phone] Ange Padilla OT Unavailable [phone] Reason for Referral * Speech Therapy (Routine) - Closed Specialty Diagnoses / Procedures Referred By Contmami t Referred To Contact Speech Pathology Diagnoses Ataxia Carrie Cho MD Phone: tel: fax: [facility] [address] [place] [address] Phone: tel: Referral ID Status Reason Start Date Expiration Date Visits Re quested Visits Authorized [id number] Closed 12/28/2018 12/29/2019 99 [phone] Encounter Details Date Type Department Care Team (Latest Contact Info) Description 12/28/2018 Transcribe Orders Psychiatric [address] [place] [address] [place] [address] Carrie Cho MD [address] [place] [address] Ataxia (Primary Dx) Social History Tobacco Use Types [...] Description 01/11/2025 12:30 PM EST Office Visit [address] [place] [address] Ross Wise MD [address] [place] [address], [address] [place] [address] Zahra Albert OT 8 [place] [address] 02/16/2025 2:40 PM EST Office Visit [facility] [address] [place] [address] [address]rd Floor, [address] [place] [address] Ang Golden MD [address] [place] [address], [address] [address] documented as of this encounter Procedures Procedure Name Priority Date/Time Associated Diagnosis Comments AMB REFERRAL TO [facility] SPEECH AND LANGUAGE PATHOLOGY Routine 02/03/2019 12:38 PM EST Ataxia documented in this encounter Results * Ambulatory referral to [facility] Speech Language Pathology (02/03/2019 12:38 PM EST) us Carrie Cho MD AMB [facility] REFERRALS Final Res ult documented in this encounter Visit Diagnoses Diagnosis Ataxia- Primary Lack of coordination documented in this encounter Additional Health Concerns Infection Onset Date Last Indicated Resolved Time CoV-Risk Comment:Neg covid 12/15/2022 12/15/2022 12/16/2022 7:41 AM E DT documented as of this encounter Care Teams Sterile Supply Technician Relationship Specialty Start Date End Date Ross Wise MD 22 [facility], [address] [place] [address] PCP - General Family Medicine 01/12/14 Ross Wise MD 22 [facility], [address] [place] [address] Insurance Assigned Provider 06/07/23 Ange Padilla, OT [address] [place] [address] Transitions Electro Optical Engineer 12/10/21 2 Ange Padilla, OT [address] [place] [address] Transitions Electro Optical Engineer 12/27/21 01/01/22 Carrie Cho MD [address] [place] [address] Neurology 02/21/23 Ange Padilla, OT 30 [place] [address] Transitions Electro Optical EngineerAir And Hydronic Balancing Technician Therapy 09/15/2301/24 documented as of this encounter Additional Source Comments The information contained in this document represents components of the legal health record. It is not the complete legal health record.[facility]
--- OUTSIDE RECORDS SUMMARY | 2024-12-14 17:57 | XMS_ITS | Encounter Summary ---
Author Organization [facility] Address [facility] [employer] [address] [address] Phone Care Team Providers Care Lathe Turner Name Role Phone Ross Wise MD Primary Care Provider Ross Wise MD Unavailable [phone] Ange Padilla OT Unavailable [phone] Ange Padilla OT Unavailable [phone] Carrie Cho MD Unavailable [phone] Ange Padilla OT Unavailable [phone] Encounter Details Date Type Department Care Team (Late st Contact Info) Description 12/10/2021 Procedure Pass [facility] [address] [place] [address] Social History Tobacco Use Types Packs/Day Years [...] Description 01/11/2025 12:30 PM EST Office Visit [facility] [address] [place] [address] Ross Wise MD 22 [facility], [address] [place] [address] Zahra Albert, OT 8 [place] [address] 02/16/2025 2:40 PM EST Office Visit [facility] 22 [facility] 3rd Floor, [address] [place] [address] Ang Golden MD [address] [facility], [address] [place] [address] documented as of this encounter Visit Diagnoses Not on filedocumented in this encounter Additional Health Concerns Infection Onset Date Last Indicated Resolved Time CoV-Risk Comment:Neg covid 12/15/2022 12/15/2022 12/16/2022 7:41 AM E DT Assessment Noted Time PHQ-2 Depression Total Score: 1 11/04/19 20 3:40 PM EDT documented as of this encounter Care Teams Lathe Turner Relationship Specialty Start Date End Date Ross Wise MD [address] [facility], [address] [place] [address] PCP - General Family Medicine 01/12/14 Ross Wise MD [address] [facility], [address] [place] [address] Insurance Assigned Provider 06/07/23 Ange Padilla, OT [address] [place] [address] Transitions Regional Owner Operator Truck Driver 12/10/21 2 Ange Padilla, OT [address] [place] [address] [email or web address] Transitions Regional Owner Operator Truck Driver 12/27/21 01/01/22 Carrie Cho MD [address] [place] [address] Neurology 02/21/23 Ange Padilla, OT [address] [place] [address] Transitions Regional Owner Operator Truck DriverGlass Production Machine Operator Therapy 09/15/2301/24 documented as of this encounter Additional Source Comments The information contained in this document represents components of the legal health record. It is not the complete legal health record.[facility]
--- OUTSIDE RECORDS SUMMARY | 2024-12-14 17:57 | XMS_ITS | Clinical Summary ---
Author Organization [facility] Address [facility] [address] [address] Phone Care Team Providers Care Talent Management Manager Name Role Phone Ellen Gomes MD Primary Care Provider [phone] Ellen Gomes MD Unavailable [phone] Carrie Cho MD Unavailable [phone] Allergies Active Allergy Reactions Criticality Noted Date Comments Bactrim (Sulfamethoxazole-Trimethoprim ) Other (See Comments) Medium 08/15/2014 shingles Bupropion Hcl Other (See Comments) High 09/18/2021 Ataxia Medications multivitamin per tablet Take 1 tablet by mouth daily. Active cholecalciferol (VITAMIN D3) 25 MCG (1,000 unit) tablet Take 5,000 Units by mouth daily. Active diazePAM (DIASTAT ACUDIAL) 5-7.5-10 mg KitIndications:Se izure Place 10 mg rectally once as needed (seizure). 2 each 3 Active divalproex (DEPAKOTE) [address] tablet Take 250 mg by mouth 2 (two) times a day. Active aspirin-acetamino phen-caffeine (EXCEDRIN MIGRAINE) 250-250-65 mg per tablet Take 2 tablets by mouth daily as needed for pain (specific location in comments). Active lisinopril (PRINIVIL,ZESTRIL ) 5 MG tabletIndications :Essential hypertension take one tablet by mouth every day 90 tablet 3 4 Active meclizine (ANTIVERT) 12.5 mg tablet Take 12.5 mg by mouth 2 (two) times a day. 4 Active miscellaneous medical supply MiscIndications:P eriodic paralysis Transport wheelchair 1 mL 4 Active loratadine (CLARITIN) 10 mg tablet Take 10 mg by mouth daily. Active tamsulosin (FLOMAX) 0.4 mg Cap Take 0.4 mg by mouth nightly at bedtime. 5 Active amoxicillin (AMOXIL) 500 MG capsule TAKE 4 CAPSULES BY MOUTH 1 HOUR PRIOR TO DENTAL APPT 5 Active triamcinolone acetonide 0.025 % creamIndications: Irritant contact dermatitis, unspecified trigger Apply topically 2 (two) times a day as needed (rash). 454 g 5 Active escitalopram oxalate (LEXAPRO) 20 MG tabletIndications :Recurrent major depressive disorder, in partial remission Take 1 tablet (20 mg total) by mouth daily. 30 tablet 2 5 Active Active Problems Problem Noted Date Diagnosed Date Age-related cataract of both eyes 08/12/2024 Assessment & Plan (08/15/2024 9:30 PM EDT): Stable chronic neuodegenerative disorder, no med changes prior to surgery. Anxiety state 01/22/2024 Assessment & Plan (01/22/2024 12:44 PM EST): Currently taking 80mg, previously 40mg was ineffective. He was on a much higher dose 120mg daily, unclear if it was more effective and weight loss was noted. Orders: PROZAC 40 mg capsule; Take 2 capsules (80 mg total) by mouth daily. Ventricular tachycardia, unspecified 03/07/2023 Epilepsy 03/07/2023 Assessment & Plan (10/29/2024 4:18 PM EDT): >>ASSESSMENT AND PLAN FOR SEIZURE WRITTEN ON 03/09/2023 10:03 PM BY ELLEN GOMES MD Increased somnolence on Keppra, normal EEG, will defer to Dr. Tse regarding decision on therapies moving forward for seizure. Assessment & Plan (10/29/2024 4:18 PM EDT): >>ASSESSMENT AND PLAN FOR SEIZURE WRITTEN ON 10/19/2023 9:01 PM BY ELLEN GOMES MD Concern for possible metabolic seizure. No findings on imaging to explain seizure. Recommend follow-up with neurology. I also recommend that he discuss with neurology specialist for cerebellar ataxia. Assessment & Plan (10/29/2024 4:18 PM EDT): >>ASSESSMENT AND PLAN FOR SEIZURE WRITTEN ON 01/22/2024 12:44 PM BY ELLEN GOMES MD Followed by neurology, on depakote. Orders: Valproic acid; Future CBC and differential; Future Comprehensive metabolic panel; Future Concussion wth loss of consciousness of 30 minut es or less 11/27/2022 Assessment & Plan (11/29/2022 7:57 AM EDT): Stable, no intracranial hemorrhage. Recurrent major depressive disorder, in partial remission 08/27/2022 Assessment & Plan (11/02/2024 8:15 PM EDT): Lexapro is recommended as an alternative to Prozac due to its similar efficacy and lower risk of lowering the seizure threshold compared to Celexa. A message has been sent to the pharmacy team to confirm the availability of Lexapro and to determine the appropriate dosage for the switch. - Medication sent to pharmacy. Orders: Ambulatory referral to [facility] Physical Therapy Assessment & Plan (10/19/2023 9:02 PM EDT): Current dose of fluoxetine remains high. Recommend behavioral health consult. I think that higher than normal dose of fluoxetine may be contributing to potential risk for seizure. Med consult advised. Assessment & Plan (03/07/2023 1:38 PM EST): Increased depressive symptoms on Keppra. Discuss plan with Dr. Tse. Assessment & Plan (08/27/2022 8:51 PM EDT): Stable on combination of fluoxetine and Wellbutrin. Urinary obstruction 07/02/2022 History of syncope 12/26/2021 Assessment & Plan (12/26/2021 6:50 PM EDT): Patient was here 2 weeks ago after a 2-minute unconscious event with associated body shaking followed by a postictal. He initially had a blank look and began moving his arms and legs and jerking movement. He was seen by [facility] neurology during his hospitalization here and it was felt that he likely had a seizure with Johnson's paralysis. It was his first episode and he was not started on anticonvulsants, was recommended to follow-up with neurology He denies further seizure activity since his discharge He did have an extensive work-up during that hospital stay including EEG and MRI We will continue seizure precautions and neurochecks PT and OT Arrhythmia 12/26/2021 Assessment & Plan (02/05/2024 2:57 PM EST): While hospitalized and also on a follow-up MCT monitor has had some short runs of what was possibly NSVT versus SVT with aberrancy. Historically been maintained off of beta-blockade. Currently denying any symptomatic recurrence of arrhythmia. Overall doing well from the cardiovascular standpoint. Medication changes indicated at this time. He can follow-up and see one of the x ray electronics wireman in a year Assessment & Plan (01/10/2022 3:10 PM EST): He has no documented sustained arrhythmias. He does have an asymptomatic run of 11 beats of nonsustained VT. He has never had a documented myocardial infarction or any other heart abnormality. I would recommend completing his ambulatory heart monitoring the results. I did offer him beta-blockade therapy but he is not interested at this time. He otherwise feels well and has not had any symptoms including syncope or presyncope. He denies any chest pain or exertional shortness of breath. Assessment & Plan (12/26/2021 7:15 PM EDT): The patient was told to report to hospital today by his PCP as he reportedly had runs of VT including an episode of 11 beats in the transportation aid hours on his awake overnight monitor he was asleep and was not symptomatic. Interestingly, his states that he has been taking some caffeine pills for the last few days. He denies any other ingestions or any alcohol intake. He is also on very high-dose Prozac, 120 mg daily I will hold in the morning in case cardiology disagrees with this dose Patient denies any weakness today dizziness or syncope/near syncope, has not had any palpitations or chest pain We will check electrolytes, magnesium and phosphorus pending, potassium is 4.5. Will have cardiology consult, he just had an echocardiogram done on the . awake overnight monitor Osteoarthritis of knees, bilateral 06/15/2020 Abnormal weight loss 11/04/2019 Assessment & Plan (06/23/2022 8:18 PM EDT): Unclear cause of weight loss, evident loss of mass in proximal muscles. Check labs, including prealbumin. Suspect neurodegenerative cause. Consider occult malignancy, nutritiional deficiency. Cerebellar degeneration 11/04/2019 Assessment & Plan (07/04/2024 8:44 PM EDT): Severe headaches with vertigo and nightmares. - Discontinue Excedrin and monitor symptoms. - Follow-up with neurologist recommended. Orders: Ambulatory referral to External Modified Barium Swallow Assessment & Plan (03/07/2023 1:38 PM EST): Has followup next week with Dr. Tse, for further discussion. Assessment & Plan (08/27/2022 8:51 PM EDT): Progressive ataxia, now with muscle wasting. Recommend PT to help with safety/mobility needs. Assessment & Plan (12/09/2021 3:24 PM EDT): Dx =Episodic ataxia with progressive cerebellar ataxia narcolepsy cataplexy. Patient last seen by neurology at [facility] urgent jani Tse for consult re genetics. 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 Episodes triggered by stress patient reports that he has a neurologist that he sees regularly at [facility] , seen yearly, Dr Cho?. Patient presently not on any medications for his ataxia disorder Has tried medication in the past. Obstructive sleep apnea hypopnea, severe 019 Overview (06/03/2018): Sleep test at home with Erin Nava, on CPAP 03/2018 Primary narcolepsy with cataplexy 04/11/2018 Assessment & Plan (11/02/2024 8:15 PM EDT): Followed by neurology. Assessment & Plan (08/15/2024 9:30 PM EDT): Following with neurology - Home sleep study scheduled for 08/24/2024 to further evaluate his condition. Assessment & Plan (01/22/2024 12:44 PM EST): ? About med management. Recommend he discuss with neurology as I do not think that this is related to pulmonary process. Periodic paralysis 04/11/2018 Assessment & Plan (01/22/2024 12:44 PM EST): Needs a transport wheelchair. Orders: miscellaneous medical supply Misc; Transport wheelchair Tubular adenoma of colon 04/11/2018 Depression 04/11/2018 Assessment & Plan (12/08/2021 5:07 PM EDT): Continue Prozac 120 mg daily Assessment & Plan (06/03/2021 11:37 AM EDT): He has tolerated the addition of Wellbutrin. Mood seems a bit better. He is more willing to accept assistance and in the past. Is able to contract for safety today. 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 Labs advised, home eval with PT for mobility recommendations. He has a wheelchair, but with increasing weakness, suspect he will need motorized, electrical mobility device. Orders: Comprehensive metabolic panel; Future CBC and differential; Future Referral to Home Health [facility] Assessment & Plan (04/08/2024 7:44 AM EST): Progressive ataxia, muscle wasting, deconditioning. My concern is that his health is failing and he is having difficulties transferring and performing self-care. PT OT referral to VNA placed to assist with supports in the home for safe mobility. He might need a Giovani lift, sit to stand chair etc. Assessment & Plan (06/23/2022 8:17 PM EDT): Continued difficulty with gait, with increase loss of mass evident on exam. Recommend re-evaluation with neuro regarding his condition. Essential hypertension 04/11/2018 Assessment & Plan (11/02/2024 8:15 PM EDT): Low bp lately. - Continue to monitor blood pressure regularly. Resume taking lisinopril if blood pressure increases. Assessment & Plan (07/04/2024 8:44 PM EDT): BP readings inconsistent, today's 96/60. Systolic BP fluctuates 220 to 100. VNA monitored BP, now around 100. - Withhold lisinopril if systolic BP <100. If BP remains low, continue withholding; if BP elevates, resume lisinopril. Assessment & Plan (11/29/2022 7:54 AM EDT): There is an episode of hypotension which may have precipitated his fall as well as his ataxia which is congenital. Recommend decreasing his lisinopril to 5 mg daily, monitor blood pressures at home. Assessment & Plan (08/27/2022 8:52 PM EDT): Normotensive, continue lisinopril 10 mg daily. Assessment & Plan (11/04/2019 10:39 PM EDT): Stable, continue current regimen. Persistent proteinuria 07/07/2017 Overview (11/04/2019): Last Assessment & Plan: When last checked his spot albumin to creatinine ratio was less than 30 likely reflecting the use of lisinopril. -Cornerstone of therapy continues to be use of lisinopril currently dosed at 10 mg a day. 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 Rm at [facility] Assessment & Plan (08/15/2024 9:30 PM EDT): Following with neurology Started with home health care assistance, which is working out well. - Assistance provided with daily activities, including showering and mobility. - Ordered a new rodriguez for the scooter to improve mobility. - Monitoring the effectiveness of home health care support and making necessary adjustments. Assessment & Plan (10/19/2023 9:04 PM EDT): Follow-up with subspecialty neurology for worsening ataxia, falls recommended. I would recommend he at least consider virtual consult to discuss recent clinical course and recommendations for therapy to manage symptoms Assessment & Plan (06/03/2021 11:36 AM EDT): Patient is currently undecided whether he would like to participate with the undiagnosed disease at [facility]. He is generally fatigued, and feeling depressed. I advised that it would be reasonable for him to see the neurologist in [place] for consultation and then make a decision. There may be a therapies that were previously not possible, but with advancement technology he may be able to gain some function and quality of life. Benign essential hypertension 01/16/2017 Assessment & Plan (12/26/2021 7:10 PM EDT): The patient is not currently on antihypertensives, will monitor BP, cardiology consultation as above He was taken off of multiple antihypertensives last week, lisinopril and Norvasc Assessment & Plan (12/09/2021 3:08 PM EDT): Holdoutpatient medical regimen, blood pressure running low Migraine 01/16/2017 Episodic ataxia 01/16/2017 Assessment & Plan (12/26/2021 6:48 PM EDT): history of episodic ataxia with progressive cerebellar ataxia as well as narcolepsy and cataplexy. Patient is [facility] at the [facility] by Dr Cho, patient has had genetic studies, he had ataxia which started as a young person and his disorder is associated with symptoms of dysphagia dysarthria bladder issues sleep disorder headaches episodes of global weakness GI symptoms and autonomic dysfunction per prior H&P. Will order PT and OT IBS (irritable colon syndrome) 01/16/2017 HSV-1 (herpes simplex virus 1) infection 017 Overview (01/16/2017): Lower lip Vitamin D deficiency 01/16/2017 Elevated PSA 01/16/2017 Assessment & Plan (06/23/2022 8:21 PM EDT): Recheck PSA. Uncoded Pedigree August 15, 2014 08/16/2014 Overview (02/07/2015): Pedigree August 15, 2014 Diagnosis unknown 03/01/2014 Overview (03/12/2023): Text: Narcolepsy With Cataplexy Resolved Problems Problem Noted Date Diagnosed Date Resolved Date Altered mental status 12/08/20212022 Assessment & Plan (12/09/2021 3:11 PM EDT): Patient came to the hospital by ambulance after an episode of altered consciousness. Story is concerning for seizure. Patient reports he has never had a seizure. He has had episodes when he had difficulty moving arms and legs but he reports they were nothing like the episode yesterday. He has no recollection of the episode Neurology consulted in the ED. Note not available. ED provider reports MRI brain EEG recommended Follow-up with neurology after results of these tests available, probably tomorrow Arthritis 04/11/2018 03/07/2023 Hypokalemia 07/04/2017 03/07/2023 Overview (11/04/2019): Last Assessment & Plan: His most recent serum potassium was 4.7 which is in the normal range. At this time he does not need potassium supplementation. We will recheck his values today. Narcolepsy 01/16/2017 04/11/2018 Osteoarthritis 01/16/2017 04/11/2018 Overview (01/16/2017): Moderate tricompartment osteoarthritis w/lateral & medial meniscan tears Left Knee Nephrolithiasis 01/16/2017 04/11/2018 Acquired short leg syndrome 01/16/2017 04/11/2018 Depression 01/16/2017 04/11/2018 Renal cyst 01/16/2017 04/11/2018 Rotator cuff syndrome 01/16/20172018 Encounters Date Type Department Care Team Description 12/01/2024 Telephone [facility] [place] [address] Ellen Gomes MD Request For Order(s) 11/30/2024 12:30 PM EDT Home Care Visit [facility] [address] [place] [address] Rosalind Obrien, PT NON ADMIT HOME HEALTH VISIT 11/24/2024 Home Care Visit [facility] [address] [place] [address] Dasha Ruiz, PT CASE COMMUNICATION 11/20/2024 Home Care Visit [facility] [address] [place] [address] Nanci Encinas, RN CASE COMMUNICATION 11/19/2024 Home Care Visit [facility] [address] [place] [address] Musa Muhammad, PT CASE COMMUNICATION 11/18/2024 Home Care Visit [facility] [address] [place] [address] Musa Muhammad, PT CASE COMMUNICATION 11/17/2024 Home Care Visit [facility] [address] [place] [address] Musa Muhammad, PT TELEPHONE ENCOUNTER 10/30/2024 Orders Only [facility] [address] [place] [phone] Homehealth, Interface MD Melchor 10/29/2024 4:00 PM EDT Office Visit [address] [place] [address] Ellen Gomes MD Recurrent major depressive disorder, in partial remission (Primary Dx); Familial cerebellar ataxia; Seizure; Primary narcolepsy with cataplexy; Essential hypertension 10/25/[address] [place] [address] Ellen Gomes MD Medication Prior Authorization (Prozac 40 mg capsules) 10/15/[address] [place] [address] Ellen Gomes MD Medication Refill 10/12/[address] [place] [address] Ellen Gomes MD DME (Wheelchair ); Referral (VNA) from Last 3 Months Immunizations Immunization Administration Dates Next Due COVID-19 (Pre-12/23) Pfizer Vaccine, Bivalent 12 + 11/22/2021 COVID-19 (Pre-12/23) Pfizer Vaccine, mRNA, PF ,04/22/2020 Influenza High-Dose Quadrivalent Preservative Fr ee IM 11/27/2022,12/10/2021 Influenza High-Dose Trivalent Preservative Free IM 01/21/2024 Pneumococcal conjugate PCV20 10/15/2021 Pneumococcal polysaccharide PPSV23 11/04/2019 Tdap 11/25/2020,10/01/2016 Zoster recombinant 08/27/2022 Family History Medical History Relation Comments Other Daughter hypokalemic pepe odic paralysis/ SC8 positive Ataxia Niece SCA 8 followed a t [place] Ataxia Sister 1 paralysis Ataxia Sister 2 Relation Status Comments Daughter (Age 33) Niece Alive Sister 1 Sister 2 Alive Social History Tobacco Use Types Packs/Day Years Used Date Smoking Tobacco: Never Smokeless Tobacco: Never Alcohol Use Standard Drinks/Week Comments Not Currently 0 (1 standard drink = 0.6 oz pur e alcohol) Home Health Assessment: Transportation Answer Date Recorded Lack of Transportation (Medical) No 05/28/2024 Lack of Transportation (Non-Medical) No 05/28/2024 Patient Unable or Declines to Respond No 05/28/2024 Education Answer Date Recorded Are you interested in more education? Not on balta e 06/28/2022 Are you concerned about learning? Not on file 06/28/2022 No 06/28/2022 No 06/28/2022 Digital Access Answer Date Recorded No 07/24/2022 No 07/24/2022 Reliable internet access at home? Not on file 07/24/2022 Device with a working camera? Not on file Intimate Partner Violence Answer Date R ecorded Are you denied basic needs s uch as food, clothing, or medical care? No 09/13/2023 In the past 12 months have y ou been in a relationship with a person who hurts, threatens, or tries to control you? No 09/13/2023 Are you denied basic needs s uch as food, clothing, or medical care? No 09/13/2023 In the past 12 months have y ou been in a relationship with a person who hurts, threatens, or tries to control you? No 09/13/2023 Sex and Gender Information Value Date Recorded Sex Assigned at Male 07/27/2018 8:05 PM EDT Legal Sex Male 6:21 PM EST Gender Identity Male 07/27/2018 8:05 PM EDT Sexual Orientation Straight 09/02/2021 9: 00 PM EDT Last Filed Vital Signs Vital Sign Reading Time Taken Comments Blood Pressure 105/60 10/29/2024 3:56 PM EDT Pulse 97 10/29/2024 3:56 PM EDT Temperature 36.4 C (97.6 F) 08/27/2024 1:15 PM EDT Respiratory Rate 14 05/28/2024 1:47 PM EDT Oxygen Saturation 97% 10/29/2024 3:56 PM EDT Inhaled Oxygen Concentration 66% 12/16/2022 7 :50 AM EDT Weight 67.8 kg (149 lb 8 oz) 10/29/2024 3:56 PM EDT Height 177.8 cm (5' 10 ) 10/29/2024 3:56 PM EDT Body Mass Index 21.45 10/29/2024 3:56 PM EDT Plan of Treatment Upcoming Encounters Date Type Department Care Team (Late st Contact Info) Description 01/11/2025 12:30 PM EST Office Visit [facility] [address] [place] [address] Ellen Gomes MD [address] [place] [address] Zahra Albert OT [address] [place] [address] 02/16/2025 2:40 PM EST Office Visit [facility] [address] [place] [address] [address] Floor, [address] [place] [address] Ang Golden MD [address] [place] [address] Health Maintenance Due Date Last Done Comments VALPROIC ACID (DEPAKENE) LEVEL 1950 HEPATITIS C SCREENING 02/07/1966 COLOGUARD 02/07/1993 FIT TEST 02/07/1993 FOBT 02/07/1993 SIGMOIDOSCOPY 02/07/1993 VIRTUAL COLONOSCOPY 02/07/1993 ZOSTER VACCINES (2 of 2) 10/22/2022 08/27/2022 RSV VACCINE (1 - 1-dose 75+ series) 02/07/2023 COLONOSCOPY 01/13/2024 01/12/2019, 10/17/2014 COLORECTAL CANCER SCREENING 01/13/2024 INFLUENZA VACCINE (#1) 2024 , 11/27/2022, 11/27/2022, Additional history exists CREATININE LEVEL 10/07/2024 10/08/2023, , 09/16/2023, Additional history exists POTASSIUM LEVEL 10/07/2024 10/08/2023, 0703/2023, 09/16/2023, Additional history exists COVID-19 VACCINE ( season) 2024 12/01/2023, 12/05/2022, 11/22/2021, Additional history exists BLOOD PRESSURE 04/30/2025 10/29/2024 DEPRESSION SCREENING 08/11/2025 08/11/2024 LIPID PANEL 12/16/2027 12/15/2022, 12/01, 12/09/2021, Additional history exists Adult Td,Tdap Booster 11/25/2030 11/25/2020, 017 PNEUMOCOCCAL VACCINES (50+ years) Completed 10/15/2021, 11/04/2019 SMOKING STATUS SCREENING (Once After 26 Yrs) Completed 10/29/2024 HEPATITIS A VACCINES Aged Out No long er eligible based on patient's age to complete this topic HIB VACCINES Aged Out No longer eligi ble based on patient's age to complete this topic MENINGOCOCCAL VACCINES (ACWY) Aged Out No longer eligible based on patient's age to complete this topic MENINGOCOCCAL VACCINES (B) Aged Out N o longer eligible based on patient's age to complete this topic Medical Devices Not on file Procedures Procedure Name Priority Date/Time Associated Diagnosis Comments BASIC METABOLIC PANEL Routine 10/08/2023 11:30 AM EDT Recurrent major depressive disorder, in partial remission LIPID PANEL STAT 12/15/2022 2:35 PM EDT COLONOSCOPY FOR RESULT ENTRY ONLY Routine 01/12/2019 from Last 3 Months or Most Recently Relevant to Health Maintenance Results * (ABNORMAL) Basic metabolic panel (10/08/2023 11:30 AM EDT) SODIUM 138 133 - 146 mmol/L [facility] CHLORIDE 99 96 - 108 mmol/L [facility] POTASSIUM 5.3(H) 3.3 - 5.1 mmol/L [facility] CO2 29 21 - 35 mmol/L [facility] BUN 32(H) 6 - 19 mg/dL [facility] CREATININE 1.10 0.5 - 1.5 mg/dL [facility] GLUCOSE 84 70 - 99 mg/dL [facility] CALCIUM 9.4 8.4 - 10.3 mg/dL [facility] EGFR 70 >59 mL/min/1.7 3m2 [facility] Comment:Estimated glomerular filtration rate calculated using the CKD-EPI refit equation. ANION GAP 15 10 - 20 mmol/L [facility] Blood 10/08/2023 11:3 0 AM EDT 10/08/2023 3:04 PM EDT us Tyrone Moss MD LAB BLOOD ORDERABLES Final Resul t Performing Organization Address City/[facility]/ZIP Co de Phone Number [address] [address] * Lipid panel (12/15/2022 2:35 PM EDT) HDL 49 mg/dL [facility] Comment: Interpretation <40 mg/dL: Low HDL cholesterol (major risk factor for CHD) Greater than or equal to 60 mg/dL: High HDL cholesterol ( negative risk factor for CHD) HDL - cholesterol is affected by a number of factors, e.g. smoking, excerise, hormones, sex and age. CHOLESTEROL 169 0 - 240 mg/dL [facility] TRIGLYCERIDES 56 30 - 160 mg/dL [facility] LDL 109 50 - 129 mg/dL [facility] Comment: LDL levels in terms of risk for coronary heart disease: <100 mg/dL: Optimal 100-129 mg/dL: Near or above optimal 130-159 mg/dL: Borderline high 160-189 mg/dL: High >190 mg/dL: Very High CARDIAC RISK RATIO 3.4 3.4 - 5.0 [facility] Blood 12/15/2022 2:35 PM EDT 12/15/2022 2:42 PM EDT us Dedrick Spann MD LAB BLOOD ORDERABLES Final Result Performing Organization Address City/[facility]/ZIP Co de Phone Number [address] [address] * COLONOSCOPY FOR RESULT ENTRY ONLY (01/12/2019) us Historical Provider HEALTH MAINTENANCE Edited Result - Final from Last 3 Months or Most Recently Relevant to Health Maintenance Insurance MEDICARE PART A & B [place] MEDEX SUPPLEMENT MEDICARE PART A & B [place] [employer] MEDEX SUPPLEMENT MEDICARE PART A & B [place] [employer] MEDEX SUPPLEMENT MEDICARE PART A & B [employer] MEDEX SUPPLEMENT MEDICARE PART A & B [employer] MEDEX SUPPLEMENT MEDICARE PART A & B [employer] MEDEX SUPPLEMENT MEDICARE PART A & B [place] [employer] MEDEX SUPPLEMENT MEDICARE PART A & B [employer] MEDEX SUPPLEMENT MEDICARE PART A & B [employer] CROSS MEDEX SUPPLEMENT Advance Directives For more information, please contact: [phone] (9AM - 5PM [place], Friday-Friday) Documents on File Type Date Recorded Patient Typing Checker Expl anation Healthcare Proxy 06/01/2021 HEALTH CARE PROXY 06/01/21 * Full Code (Latest Code Status on File) Date Activated Date Inactivated Comments 12/26/2021 7:47 PM Question Answer Comments Code Status Confirmed With: Patient * Full Code Date Activated Date Inactivated Comments 12/08/2021 8:38 PM 12/26/2021 7:47 PM Question Answer Comments Code Status Confirmed With: Patient Healthcare Agents on File Name Relationship Healthcare Agent Relationship Communication Caroline Garland Spouse .Primary Health Care Agent (Proxy form on file) Care Teams Talent Management Manager Relationship Specialty Start Date End Date Ellen Gomes MD [address] [facility], [address] [place] [address] PCP - General Family Medicine 01/12/14 Ellen Gomes MD [address] [facility] [place] [address] Insurance Assigned Provider 06/07/23 Carrie Cho MD [address] [place] [address] Neurology 02/21/23 Additional Source Comments The information contained in this document represents components of the legal health record. It is not the complete legal health record.[facility]
--- OUTSIDE RECORDS SUMMARY | 2024-12-14 17:57 | XMS_ITS | Encounter Summary ---
Author Organization [facility] Address [facility] [employer] [address] [address] Phone Care Team Providers Care Business Division Chair Name Role Phone Ross Wise MD Primary Care Provider [phone] Ross Wise MD Unavailable [phone] Ange Padilla OT Unavailable [phone] Ange Padilla OT Unavailable Carrie Cho MD Unavailable [phone] Ange Padilla OT Unavailable [phone] Encounter Details Date Type Department Care Team (Late st Contact Info) Description 12/08/2021 Procedure Pass [facility], Ct Scan - [address] [address] Social History Tobacco Use Types Packs/Day Years [...] 4:14 PM EDT Kristen Perrin RN * [place] Suicide Severity Rating Scale (Screener/Recent Self-Report) Question [...] Description 01/11/2025 12:30 PM EST Office Visit [facility] [address] [place] [address] Ross Wise MD [address] [place] [address], [address] [place] [address] Zahra Albert OT 8 [place] [address] [email or web address] 02/16/2025 2:40 PM EST Office Visit [facility] [address] [place] [address] 3rd Floor, [address] [place] [address] Ang Golden MD [address] [place] [address], [address] [address] documented as of this encounter Visit Diagnoses Not on filedocumented in this encounter Additional Health Concerns Infection Onset Date Last Indicated Resolved Time CoV-Risk Comment:Neg covid 12/15/2022 12/15/2022 12/16/2022 7:41 AM E DT Assessment Noted Time PHQ-2 Depression Total Score: 1 11/04/19 20 3:40 PM EDT documented as of this encounter Care Teams Business Division Chair Relationship Specialty Start Date End Date Ross Wise MD [address] [place] [address], [address] [place] [address] PCP - General Family Medicine 01/12/14 Ross Wise MD [address] [facility], [address] [place] [address] Insurance Assigned Provider 06/07/23 Ange Padilla, OT [address] [place] [address] Transitions Siding Mechanic 12/10/21 2 Ange Padilla, OT [address] [place] [address] Transitions Siding Mechanic 12/27/21 01/01/22 Carrie Cho MD [address] [place] [address] Neurology 02/21/23 Ange Padilla, OT [address] [place] [address] Transitions Siding MechanicAssistant Athletic Trainer Therapy 09/15/2301/24 documented as of this encounter Additional Source Comments The information contained in this document represents components of the legal health record. It is not the complete legal health record.[facility]
--- OUTSIDE RECORDS SUMMARY | 2024-12-14 17:58 | XMS_ITS | Encounter Summary ---
Author Organization [facility] Address [facility] [address] [place] [address] Phone Care Team Providers Care Stna Name Role Phone Ross Wise MD Primary Care Provider [phone] Ross Wise MD Unavailable Carrie Cho MD Unavailable [phone] Ange Padilla OT Unavailable [phone] Encounter Details Date Type Department Care Team (Late st Contact Info) Description 01/25/2023 Procedure Pass [facility], Ct Scan - [address] [address] Social History Tobacco Use Types Packs/Day Years Used Date Smoking Tobacco: Never Smokeless Tobacco: Never Alcohol Use Standard Drinks/Week Comments Not Currently 0 (1 standard drink = 0.6 oz pur e alcohol) Education Answer Date Recorded Are you interested in more education? Not on balta e 06/28/2022 Are you concerned about learning? Not on file 06/28/2022 No 06/28/2022 No 06/28/2022 Digital Access Answer Date Recorded No 07/24/2022 No 07/24/2022 Reliable internet access at home? Not on file 07/24/2022 Device with a working camera? Not on file Sex and Gender Information Value Date Recorded Sex Assigned at Male 07/27/2018 8:05 PM EDT Legal Sex Male 6:21 PM EST Gender Identity Male 07/27/2018 8:05 PM EDT Sexual Orientation Straight 09/02/2021 9: 00 PM EDT documented as of this encounter Functional Status * Calculated C-SSRS Risk Score (Lifetime/Recent) Answer Date of Assessment Author No Risk Indicated 01/25/2023 12:55 PM Anai Kelly RN * [place] Suicide Severity Rating Scale (Screener/Recent Self-Report) Question Answer Date of Assessment Author 1. Wish to be (Past 1 Month) No 023 12:55 PM Anai Kelly RN 2. Non-Specific Active Suici danae Thoughts (Past 1 Month) No 01/25/2023 12:55 PM Rand Kelly RN 6. Suicidal Behavior (Lifetime) No 12:55 PM Anai Kelly RN documented as of this encounter Plan of Treatment Upcoming Encounters Date Type Department Care Team (Late st Contact Info) Description 01/11/2025 12:30 PM EST Office Visit [facility] [address] [place] [address] Ross Wise MD [address] [place] [address], [address] [place] [address] [email or web address] Zahra Albert OT 8 [place] [address] 02/16/2025 2:40 PM EST Office Visit [facility] [address] [place] [address] 3rd Floor, [address] [place] [address] Ang Golden MD [address] [place] [address], [address] [address] documented as of this encounter Visit Diagnoses Not on filedocumented in this encounter Additional Health Concerns Assessment Noted Time PHQ-2 Depression Total Score: 1 08/27/19 23 3:17 PM EDT documented as of this encounter Care Teams Stna Relationship Specialty Start Date End Date Ross Wise MD [address] [facility], [address] [place] [address] [email or web address] PCP - General Family Medicine 01/12/14 Ross Wise MD [address] [facility], [address] [place] [address] [email or web address] Insurance Assigned Provider 06/07/23 Carrie Cho MD [address] [place] [address] Neurology 02/21/23 Ange Padilla, OT [address] [place] [address] [email or web address] Transitions Grape PrunerGarnett Fixer Therapy 09/15/2301/24 documented as of this encounter Additional Source Comments The information contained in this document represents components of the legal health record. It is not the complete legal health record.[facility]
--- OUTSIDE RECORDS SUMMARY | 2024-12-14 17:58 | XMS_ITS | Encounter Summary ---
Author Organization [facility] Address [address] [facility] [address] [place] [address] Phone Care Team Providers Care Telex Operator Name Role Phone Ross Wise MD Primary Care Provider [phone] Ross Wise MD Unavailable [phone] Carrie Cho MD Unavailable [phone] Reason for Visit * Reason Onset Date Comments DME 10/12/2024 Wheelchair Referral 10/12/2024 VNA Encounter Details Date Type Department Care Team (Late st Contact Info) Description 10/12/2024 Telephone [place] [address] [address] Ross Wise MD [address] [facility], [address] [place] [address] [email or web address] DME (Wheelchair ); Referral (VNA) Social History Tobacco Use Types Packs/Day Years [...] PM EDT documented as of this encounter Progress Notes * Stacy Balderas RN - 10/12/2024 11:11 AM EDT Patient will need a [id number] visit prior to VNA referral per insurance & VNA regulations. Specifications for new wheelchair can also be addressed at that visit- please schedule * Julisa Tyson - 10/12/2024 10:55 AM EDT Pt's spouse Caroline called in stating pt is in need of new wheelchair. Caller also stated she would like to start VNA services again. Caller stated pt's condition is worsening and she is having issues lifting him/he is sliding out of his wheelchair. Please contact and advise. Central Support Software Development Advisor (Please do not reply to this user; this inbox is not monitored.) Thank you. documented in this encounter Plan of Treatment Upcoming Encounters Date Type Department Care Team (Late st Contact Info) Description 01/11/2025 12:30 PM EST Office Visit [facility] [address] [place] [address] Ross Wise MD [address] [facility], [address] [place] [address] Zahra Albert OT 8 [place] [address] 02/16/2025 2:40 PM EST Office Visit [facility] [address] [place] [address] 3rd Floor, [address] [place] [address] Ang Golden MD [address] [facility], [address] [place] [address] documented as of this encounter Visit Diagnoses Not on filedocumented in this encounter Additional Health Concerns Assessment Noted Time PHQ-2 Depression Total Score: 2 08/12/19 25 3:55 PM EDT documented as of this encounter Care Teams Telex Operator Relationship Specialty Start Date End Date Ross Wise MD [address] [facility], [address] [place] [address] PCP - General Family Medicine 01/12/14 Ross Wise MD [address] [place] [address], [address] [place] [address] Insurance Assigned Provider 06/07/23 Carrie Cho MD [address] [place] [address] Neurology 02/21/23 documented as of this encounter Additional Source Comments The information contained in this document represents components of the legal health record. It is not the complete legal health record.[facility]
--- OUTSIDE RECORDS SUMMARY | 2024-12-14 17:58 | XMS_ITS | Encounter Summary ---
Author Organization [facility] Address [facility] [employer] [facility] [address] [place] [address] Phone Care Team Providers Care Social Worker Masters Name Role Phone Ross Wise MD Primary Care Provider [phone] Ross Wise MD Unavailable [phone] Carrie Cho MD Unavailable [phone] Ange Padilla OT Unavailable [phone] Encounter Details Date Type Department Care Team (Late st Contact Info) Description 12/15/2022 Procedure Pass [facility], [address] [address] Social History Tobacco Use Types Packs/Day Years [...] Date of Assessment Author No Risk Indicated 12/15/2022 1:09 PM EDT Carolyn Dhaliwal RN * [place] Suicide Severity Rating Scale (Screener/Recent Self-Report) Question Answer Date of Assessment Author 1. Wish to be (Past 1 Month) No 023 1:09 PM EDT Carolyn Dhaliwal RN 2. Non-Specific Active Suici danae Thoughts (Past 1 Month) No 12/15/2022 1:09 PM EDT Carolyn Dhaliwal RN 6. Suicidal Behavior (Lifetime) No 3 1:09 PM EDT Carolyn Dhaliwal RN documented as of this encounter Plan of Treatment Upcoming Encounters Date Type Department Care Team (Late st Contact Info) Description 01/11/2025 12:30 PM EST Office Visit [facility] [address] [place] [address] Ross Wise MD [address] [place] [address], [address] [place] [address] [email or web address] Zahra Albert OT [address] [place] [address] 02/16/2025 2:40 PM EST Office Visit [facility] [address] [place] [address] 3rd Floor, [address] [place] [address] Ang Golden MD [address] [place] [address], [address] [address] documented as of this encounter Visit Diagnoses Not on filedocumented in this encounter Additional Health Concerns Infection Onset Date Last Indicated Resolved Time CoV-Risk Comment:Neg covid 12/15/2022 12/15/2022 12/16/2022 7:41 AM E DT Assessment Noted Time PHQ-2 Depression Total Score: 1 08/27/19 23 3:17 PM EDT documented as of this encounter Care Teams Social Worker Masters Relationship Specialty Start Date End Date Ross Wise MD [address] [facility], [address] [place] [address] PCP - General Family Medicine 01/12/14 Ross Wise MD [address] [facility], [address] [place] [address] Insurance Assigned Provider 06/07/23 Carrie Cho MD [address] [place] [address] Neurology 02/21/23 Ange Pdailla, OT [address] [place] [address] [email or web address] Transitions Change Of Address ClerkRegulatory Manager Therapy 09/15/2301/24 documented as of this encounter Additional Source Comments The information contained in this document represents components of the legal health record. It is not the complete legal health record.[facility]
--- OUTSIDE RECORDS SUMMARY | 2024-12-14 17:58 | XMS_ITS | Encounter Summary ---
Author Organization [facility] Address [address] [place] [address] Phone Care Team Providers Care Forestry Consultant Name Role Phone Ross Wise MD Primary Care Provider [phone] Ross Wise MD Unavailable [phone] Carrie hCo MD Unavailable [phone] Ange Padilla OT Unavailable [phone] Encounter Details Date Type Department Care Team (Late st Contact Info) Description 09/08/2023 Procedure Pass [facility], Ct Scan - [address] [address] Social History Tobacco Use Types Packs/Day Years Used Date Smoking Tobacco: Never Smokeless Tobacco: Never Alcohol Use Standard Drinks/Week Comments Not Currently 0 (1 standard drink = 0.6 oz pur e alcohol) Home Health Assessment: Transportation Answer Date Recorded Lack of Transportation (Medical) No 06/03/2023 Lack of Transportation (Non-Medical) No 06/03/2023 Patient Unable or Declines to Respond No 06/03/2023 Education Answer Date Recorded Are you interested [...] Description 01/11/2025 12:30 PM EST Office Visit [facility] 8 [place] [address] Ross Wise MD [address] [facility], [address] [place] [address] Zahra Albert OT 8 [place] [address] 02/16/2025 2:40 PM EST Office Visit [facility] [address] [place] [address] 3rd Floor, [address] [place] [address] Ang Golden MD [address] [facility], [address] [address] documented as of this encounter Visit Diagnoses Not on filedocumented in this encounter Additional Health Concerns Assessment Noted Time PHQ-2 Depression Total Score: 1 08/27/19 23 3:17 PM EDT documented as of this encounter Care Teams Forestry Consultant Relationship Specialty Start Date End Date Ross Wise MD [address] [place] [address], [address] [place] [address] PCP - General Family Medicine 01/12/14 Ross Wise MD [address] [place] [address], [address] [place] [address] [email or web address] Insurance Assigned Provider 06/07/23 Carrie Cho MD [address] [place] [address] Neurology 02/21/23 Ange Padilla, OT [address] [place] [address] [email or web address] Transitions Teacher Industrial ArtsPlastics Tooling Engineer Therapy 09/15/2301/24 documented as of this encounter Additional Source Comments The information contained in this document represents components of the legal health record. It is not the complete legal health record.[facility]
--- OUTSIDE RECORDS SUMMARY | 2024-12-14 17:58 | XMS_ITS | Encounter Summary ---
Author Organization [facility] Address [facility] [facility] [address] [place] [address] Phone Care Team Providers Care Supervisor Underwriting Clerks Name Role Phone Ross Wise MD Primary Care Provider [phone] Ross Wise MD Unavailable [phone] Carrie Cho MD Unavailable [phone] Ange Padilla OT Unavailable [phone] Encounter Details Date Type Department Care Team (Late st Contact Info) Description 12/15/2022 Procedure Pass [facility], Ct Scan - [address] [address] Social History Tobacco Use Types Packs/Day Years [...] 1:09 PM EDT Carolyn Dhaliwal RN * [place] Suicide Severity Rating Scale (Screener/Recent Self-Report) Question [...] Office Visit [facility] [address] [place] [address] Ross Wise MD [address] [place] [address], [address] [place] [address] Zahra Albert OT 8 [place] [address] 02/16/2025 2:40 PM EST Office Visit [facility] [address] [place] [address] 3rd Floor, [address] [place] [address] Ang Golden MD [address] [place] [address], [address] [address] documented as of this encounter Visit Diagnoses Not on filedocumented in this encounter Additional Health Concerns Infection Onset Date Last Indicated Resolved Time CoV-Risk Comment:Neg covid 12/15/2022 12/15/2022 12/16/2022 7:41 AM E DT Assessment Noted Time PHQ-2 Depression Total Score: 1 08/27/19 23 3:17 PM EDT documented as of this encounter Care Teams Supervisor Underwriting Clerks Relationship Specialty Start Date End Date Ross Wise MD 22 [facility], [address] [place] [address] PCP - General Family Medicine 01/12/14 Ross Wise MD 22 [facility], [address] [place] [address] Insurance Assigned Provider 06/07/23 Carrie Cho MD [address] [place] [address] Neurology 02/21/23 Ange Padilla, OT [address] [place] [address] [email or web address] Transitions Full Stack Net DeveloperBattery Container Inspector Therapy 09/15/2301/24 documented as of this encounter Additional Source Comments The information contained in this document represents components of the legal health record. It is not the complete legal health record.[facility]
--- OUTSIDE RECORDS SUMMARY | 2024-12-14 17:58 | XMS_ITS | Encounter Summary ---
Author Organization [facility] Address [facility] [employer] [facility] [address] [place] [address] Phone Care Team Providers Care Beach Patrol Lieutenant Name Role Phone Ross Wise MD Primary Care Provider [phone] Ross Wise MD Unavailable [phone] Carrie Cho MD Unavailable [phone] Ange Padilla OT Unavailable [phone] Encounter Details Date Type Department Care Team (Late st Contact Info) Description 10/30/2022 Procedure Pass [facility], Ct Scan - [address] [address] Social History Tobacco Use Types Packs/Day Years [...] Date of Assessment Author No Risk Indicated 10/30/2022 3:50 PM EDT Viet Oneill RN * [place] Suicide Severity Rating Scale (Screener/Recent Self-Report) Question Answer Date of Assessment Author 1. Wish to be (Past 1 Month) No 10/30/2022 3:50 PM EDT Jose Zavala RN 2. Non-Specific Active Suicidal Thoughts (Past 1 Month) No 10/30/2022 3:50 PM EDT Jose Zavala RN 6. Suicidal Behavior (Lifetime) No 10/30/2022 3:50 PM EDT Jose Zavala RN documented as of this encounter Plan of Treatment Upcoming Encounters Date Type Department Care Team (Late st Contact Info) Description 01/11/2025 12:30 PM EST Office Visit [facility] [address] [place] [address] Ross Wise MD [address] [place] [address], [address] [place] [address] [email or web address] Zahra Albert OT 8 [place] [address] 02/16/2025 2:40 PM EST Office Visit [facility] [address] [place] [address] 3rd Floor, [address] [place] [address] Ang Golden MD [address] [place] [address], [address] [address] documented as of this encounter Visit Diagnoses Not on filedocumented in this encounter Additional Health Concerns Infection Onset Date Last Indicated Resolved Time CoV-Risk Comment:Neg covid 12/15/2022 12/15/2022 12/16/2022 7:41 AM E DT Assessment Noted Time PHQ-2 Depression Total Score: 1 08/27/19 23 3:17 PM EDT documented as of this encounter Care Teams Beach Patrol Lieutenant Relationship Specialty Start Date End Date Ross Wise MD 22 [facility], [address] [place] [address] [email or web address] PCP - General Family Medicine 01/12/14 Ross Wise MD [address] [facility], [address] [place] [address] [email or web address] Insurance Assigned Provider 06/07/23 Carrie Cho MD [address] [place] [address] Neurology 02/21/23 Ange Padilla, OT [address] [place] [address] [email or web address] Transitions Windows Systems AdminCreel Cleaner Therapy 09/15/2301/24 documented as of this encounter Additional Source Comments The information contained in this document represents components of the legal health record. It is not the complete legal health record.[facility]
--- OUTSIDE RECORDS SUMMARY | 2024-12-14 17:58 | XMS_ITS | Encounter Summary ---
Author Organization [facility] Address [facility] CRAZE [facility] [address] [place] [address] Phone Care Team Providers Care Dumper Mold Cleaner Name Role Phone Ross Wise MD Primary Care Provider [phone] Ross Wise MD Unavailable [phone] Carrie Cho MD Unavailable [phone] Ange Padilla OT Unavailable [phone] Encounter Details Date Type Department Care Team (Late st Contact Info) Description 01/25/2023 Procedure Pass [facility], Ct Scan - [address] [address] Social History Tobacco Use Types Packs/Day Years [...] 01/25/2023 12:55 PM Anai Kelly RN * [place] Suicide Severity Rating Scale (Screener/Recent Self-Report) Question [...] Description 01/11/2025 12:30 PM EST Office Visit [facility] [address] [place] [address] Ross Wise MD [address] [place] [address], [address] [place] [address] Zahra Albert OT 8 [place] [address] 02/16/2025 2:40 PM EST Office Visit [facility] [address] [place] [address] 3rd Floor, [address] [place] [address] Ang Golden MD [address] [place] [address], [address] [address] documented as of this encounter Visit Diagnoses Not on filedocumented in this encounter Additional Health Concerns Assessment Noted Time PHQ-2 Depression Total Score: 1 08/27/19 23 3:17 PM EDT documented as of this encounter Care Teams Dumper Mold Cleaner Relationship Specialty Start Date End Date Ross Wise MD 22 [facility], [address] [place] [address] [email or web address] PCP - General Family Medicine 01/12/14 Ross Wise MD 22 [facility], [address] [place] [address] [email or web address] Insurance Assigned Provider 06/07/23 Carrie Cho MD [address] [place] [address] Neurology 02/21/23 Ange Padilla, OT [address] [place] [address] [email or web address] Transitions Iron Plastic Bullet MakerEntrepreneurship Program Director Therapy 09/15/2301/24 documented as of this encounter Additional Source Comments The information contained in this document represents components of the legal health record. It is not the complete legal health record.[facility]
--- OUTSIDE RECORDS SUMMARY | 2024-12-14 17:58 | XMS_ITS | Encounter Summary ---
Author Organization [facility] Address [address] [place] [address] Phone Care Team Providers Care Javascript Web Developer Name Role Phone Ross Wise MD Primary Care Provider [phone] Ross Wise MD Unavailable [phone] Carrie Cho MD Unavailable [phone] Ange Padilla OT Unavailable [phone] Encounter Details Date Type Department Care Team (Late st Contact Info) Description 09/08/2023 Procedure Pass [facility], Ct Scan - [address] [address] Social History Tobacco Use Types Packs/Day Years [...] Description 01/11/2025 12:30 PM EST Office Visit [facility] 8 [place] [address] Ross Wise MD 22 [facility], [address] [place] [address] Zahra Albert OT 8 [place] [address] 02/16/2025 2:40 PM EST Office Visit [facility] [address] [place] [address] 3rd Floor, [address] [place] [address] Ang Golden MD 22 [facility], [address] [place] [address] [address] documented as of this encounter Visit Diagnoses Not on filedocumented in this encounter Additional Health Concerns Assessment Noted Time PHQ-2 Depression Total Score: 1 08/27/19 23 3:17 PM EDT documented as of this encounter Care Teams Javascript Web Developer Relationship Specialty Start Date End Date Ross Wise MD [address] [place] [address], [address] [place] [address] [email or web address] PCP - General Family Medicine 01/12/14 Ross Wise MD [address] [place] [address], [address] [place] [address] [email or web address] Insurance Assigned Provider 06/07/23 Carrie Cho MD [address] [place] [address] Neurology 02/21/23 Ange Padilla, OT [address] [place] [address] [email or web address] Transitions Rigging ForemanAdmissions Manager Therapy 09/15/2301/24 documented as of this encounter Additional Source Comments The information contained in this document represents components of the legal health record. It is not the complete legal health record.[facility]
--- OUTSIDE RECORDS SUMMARY | 2024-12-14 17:58 | XMS_ITS | Encounter Summary ---
Author Organization [facility] Address [facility] [employer] - [employer]ments [employer] | Anywhere [facility] [address] [place] [address] Phone Care Team Providers Care Operating System Designer Name Role Phone Ross Wise MD Primary Care Provider [phone] Ross Wise MD Unavailable [phone] Carrie Cho MD Unavailable [phone] Ange Padilla OT Unavailable [phone] Encounter Details Date Type Department Care Team (Late st Contact Info) Description 10/30/2022 Procedure Pass [facility], Ct Scan - [address] [address] Social History Tobacco Use Types Packs/Day Years [...] 3:50 PM EDT Viet Oneill RN * [place] Suicide Severity Rating Scale (Screener/Recent Self-Report) Question [...] Description 01/11/2025 12:30 PM EST Office Visit [facility] [address] [place] [address] Ross Wise MD [address] [place] [address], [address] [place] [address] [email or web address] Zahra Albert OT 8 [place] [address] 02/16/2025 2:40 PM EST Office Visit [facility] [address] [place] [address] 3rd Floor, [address] [place] [address] Ang Golden MD [address] [place] [address], [address] [address] documented as of this encounter Visit Diagnoses Not on filedocumented in this encounter Additional Health Concerns Infection Onset Date Last Indicated Resolved Time CoV-Risk Comment:Neg covid 12/15/2022 12/15/2022 12/16/2022 7:41 AM E DT Assessment Noted Time PHQ-2 Depression Total Score: 1 08/27/19 23 3:17 PM EDT documented as of this encounter Care Teams Operating System Designer Relationship Specialty Start Date End Date Ross Wise MD 22 [facility], [address] [place] [address] PCP - General Family Medicine 01/12/14 Ross Wise MD 22 [facility], [address] [place] [address] [email or web address] Insurance Assigned Provider 06/07/23 Carrie Cho MD [address] [place] [address] Neurology 02/21/23 Ange Padilla, OT [address] [place] [address] [email or web address] Transitions Business Continuity PlannerPunch Hand Therapy 09/15/2301/24 documented as of this encounter Additional Source Comments The information contained in this document represents components of the legal health record. It is not the complete legal health record.[facility]"
--- OUTSIDE RECORDS SUMMARY | 2024-12-14 17:58 | XMS_ITS | Clinical Summary ---
Author Organization [facility] Address [address] [place] [address] Care Team Providers Care Testing Engineer Name Role Phone Ross Wise MD Primary Care Provider [phone] Allergies Active Allergy Reactions Criticality Noted Date [...] Given: No Passive Exposure Comments:unknown-PT poor historian [facility] Utilities Answer Date Recorded In the past [...] place to sleep or slept in a skilled nursing (including now)? No 09/10/2023 Sex and Gender [...] Health Maintenance Due Date Last Done Comments Advance Care Planning 1950 Hepatitis C Virus Screening 1950 DTaP/Tdap/Td Vaccines (1 - Tdap) 02/07/1967 Pneumococcal Vaccines 50+ (1 of 1 - PCV) 02/07/1998 Zoster (Shingles) Vaccine (1 of 2) 02/07/1998 RSV Vaccine 60 years and older and Patients (1 - 1-dose 75+ series) 02/07/2023 Influenza Vaccine 10/01/2024 11/27/2022, 12/10/2021 COVID-19 Vaccine (4 - 2024-2 6 season) 2024 11/22/2021, 05/13/2020, 04/22/2020 Hepatitis B Vaccines Aged Out No long er eligible based on patient's age to complete this topic Insurance MEDICARE PART A & B [facility] Advance Directives * Full Code (Latest Code Status on File) Date Activated Date Inactivated Comments 09/09/2023 1:48 PM Care Teams Testing Engineer Relationship Specialty Start Date End Date Ross Wise MD 22 [facility] 201 [place] [address] PCP - General Pediatric, General 09/09/23
--- OUTSIDE RECORDS SUMMARY | 2024-12-14 17:58 | XMS_ITS | Clinical Summary ---
Author Organization [facility] Address [address] [place] [address] Care Team Providers Care Postal Service Sectional Center Manager Name Role Phone Ross Wise Primary Care Provider [phone] Allergies Active Allergy Reactions Criticality Noted Date [...] at his current dose without any change. Family History Medical History Relation Name Comments Heart disease Father Relation Name Status Comments Father Mother Social History Tobacco Use Types Packs/Day Years [...] 10/28/2019 10:43 AM EDT Plan of Treatment Health Maintenance Due Date Last Done Comments Hepatitis C Screening 1950 Medicare AWV 02/07/1951 Zoster Vaccines (1 of 2) 02/07/1998 Basic Metabolic Panel 01/29/2023 01/29/2022 , 12/27/2021, 12/26/2021, Additional history exists RSV Vaccine (60+ years old and patients) (1 - 1-dose 75+ series) 02/07/2023 Alcohol/Substance Use Screening 03/03/2024 Depression Screening and Follow-Up 03/03/2024 Health Care Proxy Review 03/03/2024 Social Drivers of Health Annual Screening 03/03/2024 COVID-19 Vaccine ( season) 2024 11/22/2021, 06/29/2021, 12/20/2020, Additional history exists Influenza Vaccine (#1) 2024 12/10/2021 DTaP,Tdap,and Td Vaccines (3 - Td or Tdap) 11/25/2030 11/25/2020, 10/01/2016 Pneumococcal Vaccine: 50+ Years Completed 10/15/2021, 11/04/2019 Hepatitis B Vaccines Aged Out No long er eligible based on patient's age to complete this topic Procedures * Due to [place] state law, this organization might not be sharing negative HIV tests. Procedure Name Priority Date/Time Associated Diagnosis Comments RENAL FUNCTION PANEL Routine 11/02/2020 11:43 AM EDT Hypokalemia from Last 3 Months or Most Recently Relevant to Health Maintenance Results * Due to [place] state law, this organization might not be sharing negative HIV tests. * (ABNORMAL) Renal Function Panel (11/02/2020 11:43 AM EDT) NA 141 135 - 145 mmol/L 11/02/2020 12:23 PM EDT [email or web address] K 4.5 3.5 - 5.3 mmol/L 11/02/2020 12:23 PM EDT [email or web address] Cl 105 97 - 110 mmol/L 11/02/2020 12:23 PM EDT [email or web address] CO2 28 24 - 32 mmol/L 11/02/2020 12:23 PM EDT [email or web address] Anion Gap 8 5 - 15 11/02/2020 12:23 PM EDT [email or web address] Glucose 60(L) 70 - 99 mg/dL 11/02/2020 12:23 PM EDT [email or web address] BUN 37(H) 7 - 23 mg/dL 11/02/2020 12:23 PM EDT [email or web address] Creatinine 1.24 0.60 - 1.30 mg/dL 11/02/2020 12:23 PM EDT [email or web address] eGFR Non- 58(L) >=90 mL/min/BSA 11/02/2020 12:23 PM EDT [email or web address] eGFR 67(L) >=90 mL/min/BSA 11/02/2020 12:23 PM EDT [email or web address] Comment: Units = mL/min/1.73 m2 Glomerular Filtration Rate (GFR) is estimated based on the CKD-EPI Creatinine Equation (2009). Stage Description GFR 1 Normal >=90 mL/min/BSA 2 Mildly decreased GFR 60-89 mL/min/BSA 3 Moderately decreased GFR 30-59 mL/min/BSA 4 Severely decreased GFR 15-29 mL/min/BSA 5 Kidney Failure <15 mL/min/BSA Calcium 8.9 8.7 - 10.7 mg/dL 11/02/2020 12:23 PM EDT [email or web address] Phosphorus 2.6 2.5 - 4.5 mg/dL 11/02/2020 12:23 PM EDT [email or web address] Albumin 3.9 3.5 - 4.8 g/dL 11/02/2020 12:23 PM EDT [email or web address] Blood Structure of peripheral vein / Unknown Venipuncture / Unknown 11/02/2020 11:43 AM EDT 11/02/2020 11:55 AM EDT us Viet Carrizales MD LAB BLOOD ORDERABLES Final Result [facility] [address] [place] [address], from Last 3 Months or Most Recently Relevant to Health Maintenance Insurance MEDICARE [facility] Care Teams Postal Service Sectional Center Manager Relationship Specialty Start Date End Date Ross Wise [address] [address] PCP - General Family Medicine 05/20/17
--- OUTSIDE RECORDS SUMMARY | 2024-12-14 17:58 | XMS_ITS | Encounter Summary ---
Author Organization [facility] Address [facility] [employer] [facility] [address] [place] [address] Phone Care Team Providers Care Ceramics Test Engineer Name Role Phone Ross Wise MD Primary Care Provider [phone] Ross Wise MD Unavailable [phone] Carrie Cho MD Unavailable Ange Padilla OT Unavailable [phone] Encounter Details Date Type Department Care Team (Late st Contact Info) Description 12/15/2022 Procedure Pass [facility], Ct Scan - [address] [address] Social History Tobacco Use Types Packs/Day Years [...] 1:09 PM EDT Carolyn Dhaliwal RN * [place] Suicide Severity Rating Scale (Screener/Recent Self-Report) Question [...] Description 01/11/2025 12:30 PM EST Office Visit [facility] [address] [place] [address] Ross Wise MD [address] [place] [address], [address] [place] [address] Zahra Albert OT 8 [place] [address] 02/16/2025 2:40 PM EST Office Visit [facility] [address] [place] [address] 3rd Floor, [address] [place] [address] Ang Golden MD [address] [place] [address], [address] [address] documented as of this encounter Visit Diagnoses Not on filedocumented in this encounter Additional Health Concerns Infection Onset Date Last Indicated Resolved Time CoV-Risk Comment:Neg covid 12/15/2022 12/15/2022 12/16/2022 7:41 AM E DT Assessment Noted Time PHQ-2 Depression Total Score: 1 08/27/19 23 3:17 PM EDT documented as of this encounter Care Teams Ceramics Test Engineer Relationship Specialty Start Date End Date Ross Wise MD 22 [facility], [address] [place] [address] PCP - General Family Medicine 01/12/14 Ross Wise MD 22 [facility], [address] [place] [address] Insurance Assigned Provider 06/07/23 Carrie Cho MD [address] [place] [address] Neurology 02/21/23 Ange Padilla, OT [address] [place] [address] [email or web address] Transitions Indirect Sales ExecButtonhole Machine Operator Therapy 09/15/2301/24 documented as of this encounter Additional Source Comments The information contained in this document represents components of the legal health record. It is not the complete legal health record.[facility]
== END 2024-12-14 16:10 | disposition home or self-care (01) ==
PROVIDERS: PCP Pediatrics; Visit Provider Physician Assistant Medical
DX: G47.33 Obstructive sleep apnea (adult) (pediatric) (principal); G47.429 Narcolepsy in conditions classified elsewhere without cataplexy; G47.10 Hypersomnia, unspecified; G47.19 Other hypersomnia
CPT/HCPCS: 99204

== ENCOUNTER → 2024-12-14 15:05 | Outpatient (BNVA) | payer MEDICARE, SELFPAY | PROVIDERS: PCP Pediatrics; Visit Provider Physician Assistant Medical | DX: G47.33 Obstructive sleep apnea (adult) (pediatric) (principal); Z99.89 Dependence on other enabling machines and devices; G47.10 Hypersomnia, unspecified; G47.429 Narcolepsy in conditions classified elsewhere without cataplexy; G47.19 Other hypersomnia | CPT/HCPCS: 99202 ==

== ENCOUNTER → 2025-01-11 19:30 | Outpatient (REF) | payer MEDICARE, SELFPAY ==
--- OUTSIDE RECORDS SUMMARY | 2025-01-11 21:11 | XMS_ITS | Encounter Summary ---
Author Organization [facility] Address [address] [place] [address] Phone Care Team Providers Care Glass Designer Name Role Phone Ross Wise MD Primary Care Provider [phone] Ross Wise MD Unavailable [phone] Ange Padilla OT Unavailable [phone] Ange Padilla OT Unavailable [phone] Carrie Cho MD Unavailable [phone] Ange Padilla OT Unavailable [phone] Reason for Referral * Occupational Therapy (Routine) - Closed Specialty Diagnoses / Procedures Referred By Lamont t Referred To Contact Occupational Therapy Diagnoses Encounter for rehabilitation Ross Wise MD Phone: tel: fax: [email or web address] [address] [address] Phone: tel: Referral ID Status Reason Start Date Expiration Date Visits Re quested Visits Authorized [id number] Closed 10/05/2020 10/05/2021 1 1 Encounter Details Date Type Department Care Team (Latest Contact Info) Description 10/05/2020 Transcribe Orders [facility] [address] [place] [address] Ross Wise MD 22 [facility], [address] [place] [address] [email or web address] Encounter for rehabilitation (Primary Dx) Social [...] Care Team (Late st Contact Info) Description 02/01/2025 2:20 PM EST Telemedicine [facility] 2 [place] [address] Hannah Schneider, ALEX [address] [phone] 02/15/2025 11:00 AM EST Office Visit [facility] [address] [place] [address] Ross Wise MD [address] [place] [address], [address] [place] [address] Zahra Albert OT 8 [place] [address] 02/16/2025 2:40 PM EST Office Visit [facility] [address] [place] [address] 3rd Floor, [address] [place] [address] Ang Golden MD 22 [facility], [address] [place] [address] Scheduled Referrals Name Type Priority Associated Diagnoses Orde r Schedule Ambulatory referral to [facility] Occupational Therapy Outpatient Referral Routine Encounter for [...] documented as of this encounter Care Teams Glass Designer Relationship Specialty Start Date End Date Ross Wise MD [address] [place] [address] PCP - General Family Medicine 01/12/14 Ross Wise MD [address] [place] [address], [address] [address] [email or web address] Insurance Assigned Provider 06/07/23 Ange Padilla, OT [address] [place] [address] [email or web address] Transitions Excellence Leader 12/10/21 2 Ange Padilla, OT [address] [place] [address] Transitions Excellence Leader 12/27/21 01/01/22 Carrie Cho MD [address] [place] [address] Neurology 02/21/23 Ange Padilla, OT [address] [place] [address] (work) [email or web address] Transitions Excellence LeaderMilitary Exchange Wireless Manager Therapy 09/15/2301/24 documented as of this encounter Additional Source Comments The information contained in this document represents components of the legal health record. It is not the complete legal health record.[facility]
--- OUTSIDE RECORDS SUMMARY | 2025-01-11 21:12 | XMS_ITS | Clinical Summary ---
Author Organization [facility] Address [address] [place] [address] Care Team Providers Care Licensed Nuclear Operator Name Role Phone Ross Wise MD Primary Care Provider [phone] Allergies Active Allergy Reactions Criticality Noted Date [...] Given: No Passive Exposure Comments:unknown-PT poor historian [facility] Utilities Answer Date Recorded In the [...] place to sleep or slept in a retirement (including now)? No 09/10/2023 Sex and Gender [...] Vaccine (1 of 2) 02/07/1998 RSV Vaccine 50 years and older and Patients (1 - 1-dose 75+ series) 02/07/2023 Influenza Vaccine 10/01/2024 11/27/2022, 12/10/2021 COVID-19 Vaccine (4 - 2024-2 6 season) 2024 11/22/2021, 05/13/2020, 04/22/2020 Hepatitis B Vaccines Aged Out No long er eligible based on patient's age to complete this topic Insurance MEDICARE PART A & B [facility] Advance Directives * Full Code (Latest Code Status on File) Date Activated Date Inactivated Comments 09/09/2023 1:48 PM Care Teams Licensed Nuclear Operator Relationship Specialty Start Date End Date Ross Wise MD 22 [facility] 201 [place] [address] PCP - General Pediatric, General 09/09/23
--- OUTSIDE RECORDS SUMMARY | 2025-01-11 21:12 | XMS_ITS | Encounter Summary ---
Author Organization [facility] Address [address] [place] [address] Phone Care Team Providers Care Care Management Specialist Name Role Phone Ross Wise MD Primary Care Provider [phone] Ross Wise MD Unavailable [phone] Ange Padilla OT Unavailable [phone] Ange Padilla OT Unavailable [phone] Carrie Cho MD Unavailable [phone] Ange Padilla OT Unavailable [phone] Reason for Referral * Speech Therapy (Routine) - Closed Specialty Diagnoses / Procedures Referred By Contmami t Referred To Contact Speech Pathology Diagnoses Ataxia Carrie Cho MD Phone: tel: fax: [facility] [address] [place] [address] Phone: tel: Referral ID Status Reason Start Date Expiration Date Visits Re quested Visits Authorized [id number] Closed 12/28/2018 12/29/2019 99 [phone] Encounter Details Date Type Department Care Team (Latest Contact Info) Description 12/28/2018 Transcribe Orders [facility] 8 [place] [address] Carrie Cho MD [address] [place] [address] Ataxia (Primary Dx) Social History Tobacco Use [...] Info) Description 02/01/2025 2:20 PM EST Telemedicine [facility] 2 [place] [address] Hannah Schneider NP [address] [phone] 02/15/2025 11:00 AM EST Office Visit [facility] 8 [place] [address] Ross Wise MD 22 [facility], [address] [place] [address] Zahra Albert OT 8 [place] [address] 02/16/2025 2:40 PM EST Office Visit [facility] [address] [place] [address] 3rd Floor, [address] [place] [address] Ang Golden MD 22 [facility], [address] [place] [address] documented as of this encounter Procedures Procedure Name Priority Date/Time Associated Diagnosis Comments AMB REFERRAL TO [facility] SPEECH AND LANGUAGE PATHOLOGY Routine 02/03/2019 12:38 PM EST Ataxia documented in this encounter Results * Ambulatory referral to [facility] Speech Language Pathology (02/03/2019 12:38 PM EST) Carrie [facility] REFERRALS Final Res ult documented in this encounter Visit Diagnoses Diagnosis Ataxia- Primary Lack of coordination documented in this encounter Additional Health Concerns Infection Onset Date Last Indicated Resolved Time CoV-Risk Comment:Neg covid 12/15/2022 12/15/2022 12/16/2022 7:41 AM E DT documented as of this encounter Care Teams Care Management Specialist Relationship Specialty Start Date End Date Ross Wise MD [address] [place] [address] PCP - General Family Medicine 01/12/14 Ross Wise MD [address] [place] [address], [address] [address] Insurance Assigned Provider 06/07/23 Ange Padilla, OT [address] [place] [address] Transitions Groundman/Lineman 12/10/21 2 Ange Padilla, OT [address] [place] [address] [email or web address] Transitions Groundman/Lineman 12/27/21 01/01/22 Carrie Cho MD [address] [place] [address] Neurology 02/21/23 Ange Padilla, OT [address] [place] [address] [email or web address] Transitions Groundman/LinemanElectrician Bus Therapy 09/15/2301/24 documented as of this encounter Additional Source Comments The information contained in this document represents components of the legal health record. It is not the complete legal health record.[facility]
--- OUTSIDE RECORDS SUMMARY | 2025-01-11 21:12 | XMS_ITS | Encounter Summary ---
Author Organization [facility] Address Formerly [facility] [employer] [address] [address] Phone Care Team Providers Care Under Ground Miner Name Role Phone Ross Wise MD Primary Care Provider [phone] Ross Wise MD Unavailable Ange Padilla OT Unavailable [phone] Ange Padilla OT Unavailable [phone] Carrie Cho MD Unavailable Ange Padilla OT Unavailable [phone] Encounter Details Date Type Department Care Team (Late st Contact Info) Description 11/25/2020 Procedure Pass [facility], Ct Scan - [address] [address] Social History Tobacco Use Types Packs/Day Years [...] Info) Description 02/01/2025 2:20 PM EST Telemedicine [facility] CLIN[facility] SUPPORT 2 [place] [address] Hannah Schneider NP [address] [address] 02/15/2025 11:00 AM EST Office Visit [facility] Rehabilitation Services [address] [place] [address] Ross Wise MD [address] [facility], [address] [place] [address] Zahra Albert OT 8 [place] [address] 02/16/2025 2:40 PM EST Office Visit [facility] [address] [facility] 3rd Floor, [address] [place] [address] Ang Golden MD [address] [facility], [facility] 301 [place] [address] documented as of this encounter Visit Diagnoses Not on filedocumented in this encounter Additional Health Concerns Infection Onset Date Last Indicated Resolved Time CoV-Risk Comment:Neg covid 12/15/2022 12/15/2022 12/16/2022 7:41 AM E DT Assessment Noted Time PHQ-2 Depression Total Score: 1 11/04/19 20 3:40 PM EDT documented as of this encounter Care Teams Under Ground Miner Relationship Specialty Start Date End Date Ross Wies MD [address] [place] [address], [address] [place] [address] PCP - General Family Medicine 01/12/14 Ross Wise MD [address] [place] [address], [address] [place] [address] [email or web address] Insurance Assigned Provider 06/07/23 Pdailla Angebienvenido Waller, OT 30 [place] [address] [email or web address] Transitions Paint Striping Machine Operator 12/10/21 2 Ange Padilla, OT 30 [place] [address] [email or web address] Transitions Paint Striping Machine Operator 12/27/21 01/01/22 Carrie Cho MD [address] [place] [address] Neurology 02/21/23 Ange Padilla, OT 30 [place] [address] [email or web address] Transitions Paint Striping Machine OperatorBroadcast Traffic Coordinator Therapy 09/15/2301/24 documented as of this encounter Additional Source Comments The information contained in this document represents components of the legal health record. It is not the complete legal health record.[facility]
--- OUTSIDE RECORDS SUMMARY | 2025-01-11 21:12 | XMS_ITS | Encounter Summary ---
Author Organization [facility] Address [facility] [employer] [address] [address] Phone Care Team Providers Care Electrification Adviser Name Role Phone Ross Wise MD Primary Care Provider [phone] Ross Wise MD Unavailable [phone] Ange Padilla OT Unavailable [phone] Ange Padilla OT Unavailable [phone] Carrie Cho MD Unavailable [phone] Ange Padilla OT Unavailable [phone] Encounter Details Date Type Department Care Team (Late st Contact Info) Description 12/10/2021 Procedure Pass [facility]-In[facility] Cardiology 30 [place] [address] Social History Tobacco Use Types Packs/Day Years [...] Department Care Team (Late Contact Info) Description 02/01/2025 2:20 PM EST Telemedicine [facility] CL[facility] SUPPORT 2 [place] [address] Hannah Schneider, ALEX [address] [phone] 02/15/2025 11:00 AM EST Office Visit [facility] Rehabilitation Services [address] [place] [address] Ross Wise MD 22 [facility], [address] [place] [address] [email or web address] Zahra Albert OT 8 [place] [address] [email or web address] 02/16/2025 2:40 PM EST Office Visit [facility] [address], [address] [place] [address] Ang Golden MD 22 [facility], [facility] 301 [place] [address] [email or web address] documented as of this encounter Visit Diagnoses Not on filedocumented in this encounter Additional Health Concerns Infection Onset Date Last Indicated Resolved Time CoV-Risk Comment:Neg covid 12/15/2022 12/15/2022 12/16/2022 7:41 AM E DT Assessment Noted Time PHQ-2 Depression Total Score: 1 11/04/19 20 3:40 PM EDT documented as of this encounter Care Teams Electrification Adviser Relationship Specialty Start Date End Date Ross Wise MD [address] [place] [address], [address] [place] [address] [email or web address] PCP - General Family Medicine 01/12/14 Ross Wise MD [address] [place] [address], [address] [place] [address] [email or web address] Insurance Assigned Provider 06/07/23 Ange Padilla, OT 30 [place] [address] Transitions Inspection Supervisor 12/10/21 2 Ange Padilla, OT 30 [place] [address] [email or web address] Transitions Inspection Supervisor 12/27/21 01/01/22 Carrie Cho MD [address] [place] [address] Neurology 02/21/23 Ange Padilla, OT 30 [place] [address] [email or web address] Transitions Inspection SupervisorGuest Experience Representative Therapy 09/15/2301/24 documented as of this encounter Additional Source Comments The information contained in this document represents components of the legal health record. It is not the complete legal health record.[facility]
--- OUTSIDE RECORDS SUMMARY | 2025-01-11 21:12 | XMS_ITS | Clinical Summary ---
Author Organization [facility] Address [address] [place] [address] Care Team Providers Care Real Estate Director Name Role Phone Ross Wise Primary Care Provider [phone] Allergies Active Allergy Reactions Criticality Noted Date [...] Screening 03/03/2024 Depression Screening and Follow-Up 03/03/2024 Fall Risk Screening 03/03/2024 Health Care Proxy Review 03/03/2024 Social [...] - 145 mmol/L 11/02/2020 12:23 PM EDT [facility] K 4.5 3.5 - 5.3 mmol/L 11/02/2020 12:23 PM EDT [facility] Cl 105 97 - 110 mmol/L 11/02/2020 12:23 PM EDT [facility] CO2 28 24 - 32 mmol/L 11/02/2020 12:23 PM EDT [facility] Anion Gap 8 5 - 15 11/02/2020 12:23 PM EDT [facility] Glucose 60(L) 70 - 99 mg/dL 11/02/2020 12:23 PM EDT [facility] BUN 37(H) 7 - 23 mg/dL 11/02/2020 12:23 PM EDT [facility] Creatinine 1.24 0.60 - 1.30 mg/dL 11/02/2020 12:23 PM EDT [facility] eGFR Non- 58(L) >=90 mL/min/BSA 11/02/2020 12:23 PM EDT [facility] eGFR 67(L) >=90 mL/min/BSA 11/02/2020 12:23 PM EDT [facility] Comment: Units = mL/min/1.73 m2 Glomerular Filtration Rate (GFR) is estimated based on the CKD-EPI Creatinine Equation (2009). Stage Description GFR 1 Normal >=90 mL/min/BSA 2 Mildly decreased GFR 60-89 mL/min/BSA 3 Moderately decreased GFR 30-59 mL/min/BSA 4 Severely decreased GFR 15-29 mL/min/BSA 5 Kidney Failure <15 mL/min/BSA Calcium 8.9 8.7 - 10.7 mg/dL 11/02/2020 12:23 PM EDT [facility] Phosphorus 2.6 2.5 - 4.5 mg/dL 11/02/2020 12:23 PM EDT [facility] Albumin 3.9 3.5 - 4.8 g/dL 11/02/2020 12:23 PM EDT [facility] Blood Structure of peripheral vein / Unknown Venipuncture / Unknown 11/02/2020 11:43 AM EDT 11/02/2020 11:55 AM EDT us Viet Carrizales MD LAB BLOOD ORDERABLES Final Result Performing Organization Address City/State/[facility] Co de Phone Number [facility] [address] [place] [address] from Last 3 Months or Most Recently Relevant to Health Maintenance Insurance MEDICARE [facility] Care Teams Real Estate Director Relationship Specialty Start Date End Date FridaemmahumbertoRoss [address] [address] PCP - General Family Medicine 05/20/17
--- OUTSIDE RECORDS SUMMARY | 2025-01-11 21:12 | XMS_ITS | Encounter Summary ---
Author Organization [facility] Address [facility] [employer] [address] [address] Phone Care Team Providers Care Pond Tender Name Role Phone Ross Wise MD Primary Care Provider [phone] Ross Wise MD Unavailable [phone] Ange Padilla OT Unavailable [phone] Ange Padilla OT Unavailable [phone] Carrie Cho MD Unavailable [phone] Ange Padilla OT Unavailable [phone] Encounter Details Date Type Department Care Team (Late st Contact Info) Description 12/08/2021 Procedure Pass [facility], [address] [address] Social History Tobacco Use Types Packs/Day Years [...] 4:14 PM EDT Kristen Perrin RN * [place] Suicide Severity Rating Scale (Screener/Recent Self-Report) Question Answer Date of Assessment Author 1. Wish to be (Past 1 Month) No 022 4:14 PM EDT Kristen Art, CHANCE 2. Non-Specific Active Suici danae Thoughts (Past 1 Month) No 12/08/2021 4:14 PM EDT Jasmine Art RN 6. Suicidal Behavior (Lifetime) No 4:14 PM EDT Kristen Art, CHANCE documented as of this encounter Plan of Treatment Upcoming Encounters Date Type Department Care Team (Late st Contact Info) Description 02/01/2025 2:20 PM EST Telemedicine [facility] CLINIC SUPPORT 2 [place] [address] Hannah Schneider, ALEX [address] [phone] 02/15/2025 11:00 AM EST Office Visit [facility] Rehabilitation Services [address] [place] [address] Ross Wise MD [address] [place] [address], [address] [place] [address] Zahra Albert OT 8 [place] [address] 02/16/2025 2:40 PM EST Office Visit [facility] [address] [place] [address] 3rd Floor, [address] [place] [address] Ang Golden MD [address] [place] [address], [address] [address] documented as of this encounter Visit Diagnoses Not on filedocumented in this encounter Additional Health Concerns Infection Onset Date Last Indicated Resolved Time CoV-Risk Comment:Neg covid 12/15/2022 12/15/2022 12/16/2022 7:41 AM E DT Assessment Noted Time PHQ-2 Depression Total Score: 1 11/04/19 20 3:40 PM EDT documented as of this encounter Care Teams Pond Tender Relationship Specialty Start Date End Date Ross Wise MD 22 [facility], [address] [place] [address] PCP - General Family Medicine 01/12/14 Ross Wise MD 22 [facility], [address] [place] [address] Insurance Assigned Provider 06/07/23 Ange Padilla, OT 30 [place] [address] Transitions Tiller Man 12/10/21 2 Ange Padilla, OT 30 [place] [address] Transitions Tiller Man 12/27/21 01/01/22 Carrie Cho MD [address] [place] [address] Neurology 02/21/23 Ange Padilla, OT 30 [place] [address] Transitions Tiller ManBenefits Analyst Therapy 09/15/2301/24 documented as of this encounter Additional Source Comments The information contained in this document represents components of the legal health record. It is not the complete legal health record.[facility]
--- OUTSIDE RECORDS SUMMARY | 2025-01-11 21:12 | XMS_ITS | Encounter Summary ---
Author Organization [facility] Address [address] [facility] [address] [place] [address] Phone Care Team Providers Care Glove Parts Cutter Name Role Phone Ross Wise MD Primary Care Provider [phone] Ross Wise MD Unavailable [phone] Carrie Cho MD Unavailable [phone] Reason for Visit * Reason Onset Date Comments Care Coordination 01/10/2025 [facility] Virtual A [place] Outreach Encounter Details Date Type Department Care Team (Late st Contact Info) Description 01/10/2025 Telephone [facility] -[facility] TEAM [address] [place] [address] Ross Wise MD 22 [facility], [address] [place], [place] [id number] [email or web address] Care Coordination ([facility] Virtual AWV Outreach/) Social History Tobacco Use Types Packs/Day Years [...] as of this encounter Progress Notes * Angle Haro - 01/10/2025 1:20 PM EST [facility] [place] [place] Population Health Service Organization ([facility]) Annual Wellness Project: Patient has been identified as an individual who would benefit from a virtual Annual Wellness Visitthrough the [facility]. Patient consented to the visit. Patient has been scheduled for Virtual Care Support Program . Angle Haro [facility] Glove Parts Cutter documented in this encounter Plan of Treatment Upcoming Encounters Date Type Department Care Team (Late st Contact Info) Description 02/01/2025 2:20 PM EST Telemedicine [facility] V[facility]UAL CLINIC SUPPORT 2 [place] [address] Hannah Schneider, ALEX 2 [facility] [address] [place] [phone] 02/15/2025 11:00 AM EST Office Visit [facility] Rehabilitation Services 8 [place] [address] Ross Wise MD 22 [facility], [address] [place] [address] Zahra Albert OT 8 [place] [address] 02/16/2025 2:40 PM EST Office Visit [facility] [address] [place] [address] 3rd Floor, [address] [place] [address] Ang Golden MD 22 [facility], [address] [address] documented as of this encounter Visit Diagnoses Not on filedocumented in this encounter Additional Health Concerns Assessment Noted Time PHQ-2 Depression Total Score: 2 08/12/19 25 3:55 PM EDT documented as of this encounter Care Teams Glove Parts Cutter Relationship Specialty Start Date End Date Ross Wise MD [address] [place] [address], [address] [place] [address] PCP - General Family Medicine 01/12/14 Ross Wise MD [address] [place] [address], [address] [place] [address] Insurance Assigned Provider 06/07/23 Carrie Cho MD [address] [place] [address] Neurology 02/21/23 documented as of this encounter Additional Source Comments The information contained in this document represents components of the legal health record. It is not the complete legal health record.[facility]
--- OUTSIDE RECORDS SUMMARY | 2025-01-11 21:12 | XMS_ITS | Encounter Summary ---
Author Organization [facility] Address [facility] [employer] [address] [address] Phone Care Team Providers Care Merchandise Examiner Name Role Phone Ross Wise MD Primary Care Provider [phone] Ross Wise MD Unavailable [phone] Ange Padilla OT Unavailable [phone] Ange Padilla OT Unavailable [phone] Carrie Cho MD Unavailable [phone] Ange Padilla OT Unavailable [phone] Encounter Details Date Type Department Care Team (Late st Contact Info) Description 12/08/2021 Procedure Pass [facility], Ct Scan - [address] [address] Social History Tobacco Use Types Packs/Day Years [...] 4:14 PM EDT Kristen Perrin RN * [place] Suicide Severity Rating Scale (Screener/Recent Self-Report) Question [...] Info) Description 02/01/2025 2:20 PM EST Telemedicine [facility] CLINIC SUPPORT 2 [place] [address] Hannah Schneider NP [address] [phone] 02/15/2025 11:00 AM EST Office Visit [facility] Rehabilitation Services [address] [place] [address] [place] [address] Ross Wise MD [address] [place] [address], [address] [place] [address] Zahra Albert, KYREE 8 [place] [address] 02/16/2025 2:40 PM EST Office Visit [facility] [address] [place] [address] 3rd Floor, [address] [place] [address] Ang Golden MD [address] [place] [address], [address] [address] documented as of this encounter Visit Diagnoses Not on filedocumented in this encounter Additional Health Concerns Infection Onset Date Last Indicated Resolved Time CoV-Risk Comment:Neg covid 12/15/2022 12/15/2022 12/16/2022 7:41 AM E DT Assessment Noted Time PHQ-2 Depression Total Score: 1 11/04/19 20 3:40 PM EDT documented as of this encounter Care Teams Merchandise Examiner Relationship Specialty Start Date End Date Ross Wise MD 22 [facility], [address] [place] [address] PCP - General Family Medicine 01/12/14 Ross Wise MD 22 [facility], [address] [place] [address] Insurance Assigned Provider 06/07/23 Ange Padilla, OT 30 [place] [address] Transitions Bending Roll Operator 12/10/21 2 Ange Padilla, OT 30 [place] [address] Transitions Bending Roll Operator 12/27/21 01/01/22 Carrie Cho MD [address] [place] [address] Neurology 02/21/23 Ange Padilla, OT 30 [place] [address] Transitions Bending Roll OperatorUnderwriting Technician Therapy 09/15/2301/24 documented as of this encounter Additional Source Comments The information contained in this document represents components of the legal health record. It is not the complete legal health record.[facility]
--- OUTSIDE RECORDS SUMMARY | 2025-01-11 21:12 | XMS_ITS | Encounter Summary ---
Author Organization [facility] Address [facility] behaview [address] [address] Phone Care Team Providers Care Photonics Engineering Technician Name Role Phone Ross Wise MD Primary Care Provider [phone] Ross Wise MD Unavailable [phone] Ange Padilla OT Unavailable [phone] Ange Padilla OT Unavailable [phone] Carrie Cho MD Unavailable [phone] nAge Padilla OT Unavailable [phone] Encounter Details Date Type Department Care Team (Late st Contact Info) Description 12/10/2021 Procedure Pass [facility] [address] [place] [address] Social History Tobacco Use Types Packs/Day Years [...] Info) Description 02/01/2025 2:20 PM EST Telemedicine [facility]UAL CLINIC SUPPORT 2 [place] [address] Hannah Schneider, ALEX [address] [phone] 02/15/2025 11:00 AM EST Office Visit [facility] Rehabilitation Services [address] [place] [address] Ross Wise MD 22 [place], [address] [place] [address] Zahra Albert OT 8 [place] [address] 02/16/2025 2:40 PM EST Office Visit [facility] [address]rd Floor, [address] [place] [address] Ang Golden MD 22 [place] [facility], [address] [address] [email or web address] documented as of this encounter Visit Diagnoses Not on filedocumented in this encounter Additional Health Concerns Infection Onset Date Last Indicated Resolved Time CoV-Risk Comment:Neg covid 12/15/2022 12/15/2022 12/16/2022 7:41 AM E DT Assessment Noted Time PHQ-2 Depression Total Score: 1 11/04/19 20 3:40 PM EDT documented as of this encounter Care Teams Photonics Engineering Technician Relationship Specialty Start Date End Date Ross Wise MD [address] [place] [address], [address] [place] [address] [email or web address] PCP - General Family Medicine 01/12/14 Ross Wise MD [address] [place] [address], [address] [place] [address] [email or web address] Insurance Assigned Provider 06/07/23 Ange Padilla, OT 30 [place] [address] [email or web address] Transitions Works Manager 12/10/21 2 Ange Padilla, OT 30 [place] [address] [email or web address] Transitions Works Manager 12/27/21 01/01/22 Carrie Cho MD [address] [place] [address] Neurology 02/21/23 Ange Padilla, OT 30 [place] [address] [email or web address] Transitions Works ManagerOnline Community Manager Therapy 09/15/2301/24 documented as of this encounter Additional Source Comments The information contained in this document represents components of the legal health record. It is not the complete legal health record.[facility]
--- OUTSIDE RECORDS SUMMARY | 2025-01-11 21:12 | XMS_ITS | Encounter Summary ---
Author Organization [facility] Address [address] [place] [address] Phone Care Team Providers Care Hot Mill Operator Name Role Phone Ross Wise MD Primary Care Provider [phone] Ross Wise MD Unavailable [phone] Ange Padilla OT Unavailable [phone] Ange Padilla OT Unavailable [phone] Carrie Cho MD Unavailable [phone] Ange Padilla OT Unavailable [phone] Reason for Referral * Physical Therapy (Routine) - Closed Specialty Diagnoses / Procedures Referred By Lamont t Referred To Contact Physical Therapy Diagnoses Spinocerebellar ataxia Ataxia Carrie Cho MD Phone: tel: fax: [facility] [address] [place] [address] Phone: tel: Referral ID Status Reason Start Date Expiration Date Visits Re quested Visits Authorized [id number] Closed 12/28/2018 12/29/2019 99 [phone] Encounter Details Date Type Department Care Team (Latest Contact Info) Description 12/28/2018 Transcribe Orders [facility] [address] [place] [address] Carrie Cho MD [address] [place] [address] Spinocerebellar ataxia (Primary Dx); Ataxia Social History [...] Info) Description 02/01/2025 2:20 PM EST Telemedicine [facility] SUPPORT 2 [place] [address] Hannah Schneider, ALEX [address] [address] 02/15/2025 11:00 AM EST Office Visit [facility] Services [address] [place] [address] Ross Wise MD 22 [facility], [address] [place] [address] Zahra Albert OT 8 [place] [address] 02/16/2025 2:40 PM EST Office Visit [facility] [address] [place] [address] Dr 3rd Floor, [address] [place] [address] Ang Golden MD 22 [facility], [address] [place] [address] Scheduled Referrals Name Type Priority Associated Diagnoses Order Schedule Ambulatory referral to [facility] Physical Therapy Outpatient Referral Routine Spinocerebellar ataxia Ataxia Ordered: 12/28/2018 documented as of this encounter Visit Diagnoses 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 Lack of coordination documented in this encounter Additional Health Concerns Infection Onset Date Last Indicated Resolved Time CoV-Risk Comment:Neg covid 12/15/2022 12/15/2022 12/16/2022 7:41 AM E DT documented as of this encounter Care Teams Hot Mill Operator Relationship Specialty Start Date End Date Ross Wise MD 22 [facility], [address] [place] [address] [email or web address] PCP - General Family Medicine 01/12/14 Ross Wise MD [address] [place] [address], [address] [place] [address] [email or web address] Insurance Assigned Provider 06/07/23 Ange Padilla, OT [address] [place] [address] [email or web address] Transitions Highway Patrol Commander 12/10/21 2 Ange Padilla, OT [address] [place] [address] [email or web address] Transitions Highway Patrol Commander 12/27/21 01/01/22 Carrie Cho MD [address] [place] [address] Neurology 02/21/23 Ange Padilla, OT [address] [place] [address] [email or web address] Transitions Highway Patrol CommanderAlarm Investigator Therapy 09/15/2301/24 documented as of this encounter Additional Source Comments The information contained in this document represents components of the legal health record. It is not the complete legal health record.[facility]
--- OUTSIDE RECORDS SUMMARY | 2025-01-11 21:12 | XMS_ITS | Clinical Summary ---
Author Organization [facility] Address Formerly [facility] [employer] [address] [address] Phone Care Team Providers Care Real Estate Intern Name Role Phone Ellen Gomes MD Primary Care Provider [phone] Ellen Gomes MD Unavailable [phone] Carrie Cho MD Unavailable [phone] Allergies Active Allergy Reactions Criticality Noted Date Comments Bactrim (Sulfamethoxazole-Trimethoprim ) Other (See Comments) Medium 08/15/2014 shingles Bupropion Hcl Other (See Comments) High 09/18/2021 Ataxia Medications multivitamin per tablet Take 1 tablet by mouth daily. Active cholecalciferol (VITAMIN D3) 25 MCG (1,000 unit) tablet Take 5,000 Units by mouth daily. Active diazePAM (DIASTAT ACUDIAL) 5-7.5-10 mg KitIndications:S eizure Place 10 mg rectally once as needed (seizure). 2 each 01/31/20 23 Active divalproex (DEPAKOTE) [address] tablet Take 250 mg by mouth 2 (two) times a day. Active aspirin-acetamin ophen-caffeine (EXCEDRIN MIGRAINE) 250-250-65 mg per tablet Take 2 tablets by mouth daily as needed for pain (specific location in comments). Active meclizine (ANTIVERT) 12.5 mg tablet Take 12.5 mg by mouth 2 (two) times a day. 12/01/19 24 Active miscellaneous medical supply MiscIndications: Periodic paralysis Transport wheelchair 1 mL 01/22/20 24 Active loratadine (CLARITIN) 10 mg tablet Take 10 mg by mouth daily. Active tamsulosin (FLOMAX) 0.4 mg Cap Take 0.4 mg by mouth nightly at bedtime. 04/26/19 Active amoxicillin (AMOXIL) 500 MG capsule TAKE 4 CAPSULES BY MOUTH 1 HOUR PRIOR TO DENTAL APPT 05/12/19 25 Active triamcinolone acetonide 0.025 % creamIndications :Irritant contact dermatitis, unspecified trigger Apply topically 2 (two) times a day as needed (rash). 454 g 07/03/19 25 Active escitalopram oxalate (LEXAPRO) 20 MG tabletIndication s:Recurrent major depressive disorder, in partial remission Take 1 tablet (20 mg total) by mouth daily. 30 tablet 2 11/06/19 25 Active lisinopril (PRINIVIL,ZESTRI L) 5 MG tabletIndication s:Essential hypertension TAKE ONE TABLET BY MOUTH EVERY DAY 90 tablet 12/28/19 25 Active lisinopril (PRINIVIL,ZESTRI L) 5 MG tabletIndication s:Essential hypertension take one tablet by mouth every day 90 tablet 3 12/29/19 24 025 Discontinued Active Problems Problem Noted Date Diagnosed Date [...] sent to pharmacy. Orders: Ambulatory referral to [facility] Physical Therapy Assessment & Plan (10/19/2023 [...] and jerking movement. He was seen by [facility] neurology during his hospitalization here and it [...] can follow-up and see one of the marketer in a year Assessment & Plan (01/10/2022 [...] an episode of 11 beats in the emergency vehicle dispatcher hours on his monitor technician he was asleep and was not symptomatic. [...] had an echocardiogram done on the . monitor and storage bin tender Osteoarthritis of knees, bilateral 06/15/2020 Abnormal weight [...] cataplexy. Patient last seen by neurology at [facility] urgent jani Tse for consult re genetics. 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 Episodes triggered by stress patient reports that he has a neurologist that he sees regularly at [facility] , seen yearly, Dr Cho?. Patient presently not on any medications for his ataxia disorder Has tried medication in the past. Obstructive sleep apnea hypopnea, severe 019 Overview (06/03/2018): Sleep test at home with [facility], on CPAP 03/2018 Primary narcolepsy with cataplexy [...] by DNA sequencing per Dr. Rm at [facility] Assessment & Plan (08/15/2024 [...] to participate with the undiagnosed disease at [facility]. He is generally fatigued, and feeling depressed. I advised that it would be reasonable for him to see the neurologist in [place] for consultation and then make a decision. [...] and cataplexy. Patient is followed at the [facility] clinic by Dr Cho, patient has had genetic [...] Encounters Date Type Department Care Team Description 01/10/2025 Telephone [facility] TEAM [address] [place] [address] Ellen Gomes MD Care Coordination ([facility] Virtual AWV Outreach/) 12/29/2024 Telephone [facility] TE[facility] [address] [place] [address] Ellen Gomes MD Care Coordination ([facility] Virtual [facility] Outreach/) 12/25/[address] [place] [address] Ellen Gomes MD Medication Refill 12/01/[address] [place] [address] Ellen Gomes MD Request For Order(s) 11/30/2024 12:30 PM EDT Home Care Visit [facility] [address] [place] [phone] Rosalind Obrien, PT NON ADMIT HOME HEALTH VISIT 11/24/2024 Home Care Visit [facility] [address] [place] [address] Dasha Ruiz, PT CASE COMMUNICATION 11/20/2024 Home Care Visit [facility] 30 [facility] [place] [address] Nanci Encinas, RN CASE COMMUNICATION 11/19/2024 Home Care Visit [facility] [address] [place] [phone] Musa Muhammad, PT CASE COMMUNICATION 11/18/2024 Home Care Visit [facility] [address] [place] [phone] Musa Muhammad, PT CASE COMMUNICATION 11/17/2024 Home Care Visit [facility] [address] [place] [phone] Musa Muhammad, PT TELEPHONE ENCOUNTER 10/30/2024 Orders Only [facility] [address] [place] [phone] Homehealth, Interface MD Melchor 10/29/2024 4:00 PM EDT Office Visit [address] [place] [address] Ellen Gomes MD Recurrent major depressive disorder, in partial remission (Primary Dx); Familial cerebellar ataxia; Seizure; Primary narcolepsy with cataplexy; Essential hypertension 10/25/[address] [place] [address] Ellen Gomes MD Medication Prior Authorization (Prozac 40 mg capsules) 10/15/[address] [place] [address] Ellen Gomes MD Medication Refill 10/12/[address] [place] [address] Ellen Gomes MD DME (Wheelchair ); Referral [...] Ataxia Niece [facility] 8 followed a t [place] Ataxia Sister 1 paralysis Ataxia Sister 2 [...] Info) Description 02/01/2025 2:20 PM EST Telemedicine [facility] CL[facility] SUPPORT [address] [place] [address] Hannah Schneider, ALEX [address] [phone] 02/15/2025 11:00 AM EST Office Visit [facility] [address] [place] [address] Ellen Gomes MD 22 [facility], [address] [place] [address] Zahra Albert OT [address] [place] [address] 02/16/2025 2:40 PM EST Office Visit [facility] [address], [address] [place] [address] Ang Golden MD [address] [place] [address], [address] [place] [address] [email or web address] Health Maintenance Due Date Last Done Comments [...] on patient's age to complete this topic IPV VACCINES Aged Out No longer eligi ble [...] Date/Time Associated Diagnosis Comments BASIC METABOLIC PANEL (BMP) Routine 10/08/2023 11:30 AM EDT Recurrent major depressive disorder, in partial remission LIPID PANEL STAT 12/15/2022 2:35 PM EDT HM COLONOSCOPY FOR RESULT ENTRY ONLY Routine 01/12/2019 from Last 3 Months or Most Recently Relevant to Health Maintenance Results * (ABNORMAL) Basic metabolic panel (10/08/2023 11:30 AM EDT) SODIUM 138 133 - 146 mmol/L [facility] CHLORIDE 99 96 - 108 mmol/L [facility] POTASSIUM 5.3(H) 3.3 - 5.1 mmol/L [facility] CO2 29 21 - 35 mmol/L [facility] BUN 32(H) 6 - 19 mg/dL [facility] CREATININE 1.10 0.5 - 1.5 mg/dL [facility] GLUCOSE 84 70 - 99 mg/dL [facility] CALCIUM 9.4 8.4 - 10.3 mg/dL [facility] EGFR 70 >59 mL/min/1.7 3m2 [facility] Comment:Estimated glomerular filtration rate calculated using the CKD-EPI refit equation. ANION GAP 15 10 - 20 mmol/L [facility] Blood 10/08/2023 11:3 0 AM EDT 10/08/2023 3:04 PM EDT us Tyrone Moss MD LAB BLOOD BKR ORDERABLES Final R esult [facility] [address] [place] [address] * Lipid panel (12/15/2022 2:35 PM EDT) HDL 49 mg/dL [facility] Comment: Interpretation <40 mg/dL: Low HDL cholesterol (major risk factor for CHD) Greater than or equal to 60 mg/dL: High HDL cholesterol ( negative risk factor for CHD) HDL - cholesterol is affected by a number of factors, e.g. smoking, excerise, hormones, sex and age. CHOLESTEROL 169 0 - 240 mg/dL [facility] TRIGLYCERIDES 56 30 - 160 mg/dL [facility] LDL 109 50 - 129 mg/dL [facility] Comment: LDL levels in terms of risk for coronary heart disease: <100 mg/dL: Optimal 100-129 mg/dL: Near or above optimal 130-159 mg/dL: Borderline high 160-189 mg/dL: High >190 mg/dL: Very High CARDIAC RISK RATIO 3.4 3.4 - 5.0 [facility] Blood 12/15/2022 2:35 PM EDT 12/15/2022 2:42 PM EDT Dedrick Spann MD LAB BLOOD BKR ORDERABLES Fi nal Result Performing Organization Address City/State/RUST Co de Phone Number [facility] [address] [place] [address] * COLONOSCOPY FOR RESULT ENTRY ONLY (01/12/2019) Historical Provider HEALTH MAINTENANCE Edited Result - Final from Last 3 Months or Most Recently Relevant to Health Maintenance Insurance [place] [id number] [place] MEDEX SUPPLEMENT MEDICARE PART A & B [employer]Sign MEDEX SUPPLEMENT MEDICARE PART A & B [place] MEDEX SUPPLEMENT MEDICARE PART A & B [place] MEDEX SUPPLEMENT MEDICARE PART A & B [employer]-Sign MEDEX SUPPLEMENT MEDICARE PART A & B [employer]-Sign MEDEX SUPPLEMENT MEDICARE PART A & B [place]OSS MEDEX SUPPLEMENT MEDICARE PART A & B [place] MEDEX SUPPLEMENT MEDICARE PART A & B [employer]-Sign MEDEX SUPPLEMENT Advance Directives For more information, please contact: [phone] (9AM - 5PM [facility], Friday-Friday) Documents on File Type Date Recorded Patient Paper Pattern Folder Expl anation Healthcare Proxy 06/01/2021 HEALTH CARE [...] Agent (Proxy form on file) Care Teams Real Estate Intern Relationship Specialty Start Date End Date Ellen Gomes MD 22 [facility], [address] [place] [address] [email or web address] PCP - General Family Medicine 01/12/14 Ellen Gomes MD 22 [facility], [address] [place] [address] [email or web address] Insurance Assigned Provider 06/07/23 Carrie Cho MD [address] [place] [address] Neurology 02/21/23 Additional Source Comments The information contained in this document represents components of the legal health record. It is not the complete legal health record.[facility]
--- OUTSIDE RECORDS SUMMARY | 2025-01-11 21:13 | XMS_ITS | Encounter Summary ---
Author Organization [facility] Address [facility] [employer] [facility] [address] [place] [address] Phone Care Team Providers Care Shirt Folding Machine Operator Name Role Phone Ross Wise MD Primary Care Provider [phone] Ross Wise MD Unavailable [phone] Carrie Cho MD Unavailable [phone] Ange Padilla OT Unavailable [phone] Encounter Details Date Type Department Care Team (Late st Contact Info) Description 12/15/2022 Procedure Pass [facility], [address] [address] Social History Tobacco Use Types Packs/Day Years [...] 1:09 PM EDT Carolyn Dhaliwal RN * [place] Suicide Severity Rating Scale (Screener/Recent Self-Report) Question [...] Info) Description 02/01/2025 2:20 PM EST Telemedicine [facility] 2 [place] [address] Hannah Schneider, ALEX [address] [phone] 02/15/2025 11:00 AM EST Office Visit [facility] Services [address] [place] [address] Ross Wise MD 22 [facility], [address] [place] [address] Zahra Albert OT 8 [place] [address] 02/16/2025 2:40 PM EST Office Visit [facility] [address], [address] [place] [address] Ang Golden MD 22 [facility], [address] [place] [address] [email or web address] documented as of this encounter Visit Diagnoses Not on filedocumented in this encounter Additional Health Concerns Infection Onset Date Last Indicated Resolved Time CoV-Risk Comment:Neg covid 12/15/2022 12/15/2022 12/16/2022 7:41 AM E DT Assessment Noted Time PHQ-2 Depression Total Score: 1 08/27/19 23 3:17 PM EDT documented as of this encounter Care Teams Shirt Folding Machine Operator Relationship Specialty Start Date End Date Ross Wise MD 22 [facility], [address] [place] [address] [email or web address] PCP - General Family Medicine 01/12/14 Ross Wise MD [address] [place] [address], [address] [place] [address] [email or web address] Insurance Assigned Provider 06/07/23 Carrie Cho MD [address] [place] [address] Neurology 02/21/23 Ange Padilla, OT [address] [place] [address] [email or web address] Transitions [facility]parole Counseling AideSystems Designer Therapy 09/15/2301/24 documented as of this encounter Additional Source Comments The information contained in this document represents components of the legal health record. It is not the complete legal health record.[facility]
--- OUTSIDE RECORDS SUMMARY | 2025-01-11 21:13 | XMS_ITS | Encounter Summary ---
Author Organization [facility] Address Pending sale to [facility] [address] [place] [address] Phone Care Team Providers Care Senior Reactor Operator Name Role Phone Ross Wise MD Primary Care Provider [phone] Ross Wise MD Unavailable [phone] Carrie Cho MD Unavailable [phone] Ange Padilla OT Unavailable [phone] Encounter Details Date Type Department Care Team (Late st Contact Info) Description 12/15/2022 Procedure Pass [facility], Ct Scan - [address] [address] Social History Tobacco Use Types Packs/Day Years [...] Risk Indicated 12/15/2022 1:09 PM EDT Carolyn Dhaliwal, CHANCE * [place] Suicide Severity Rating Scale (Screener/Recent Self-Report) Question Answer Date of Assessment Author 1. Wish to be (Past 1 Month) No 023 1:09 PM EDT Carolyn Dhaliwal, CHANCE 2. Non-Specific Active Suici danae Thoughts (Past 1 Month) No 12/15/2022 1:09 PM EDT Carolyn Dhaliwal RN 6. Suicidal Behavior (Lifetime) No 3 1:09 PM EDT Carolyn Dhaliwal RN documented as of this encounter Plan of Treatment Upcoming Encounters Date Type Department Care Team (Late st Contact Info) Description 02/01/2025 2:20 PM EST Telemedicine [facility] SUPPORT [address] [place] [address] Hannah Schneider, ALEX [address] [phone] 02/15/2025 11:00 AM EST Office Visit [facility] Services [address] [place] [address] Ross Wise MD 22 [facility], [address] [place] [address] Zahra Albert OT 8 [place] [address] 02/16/2025 2:40 PM EST Office Visit [facility] [address] [place] [address]rd Floor, [address] [place] [address] Ang Golden MD 22 [facility], [address] [place] [address] [email or web address] documented as of this encounter Visit Diagnoses Not on filedocumented in this encounter Additional Health Concerns Infection Onset Date Last Indicated Resolved Time CoV-Risk Comment:Neg covid 12/15/2022 12/15/2022 12/16/2022 7:41 AM E DT Assessment Noted Time PHQ-2 Depression Total Score: 1 08/27/19 23 3:17 PM EDT documented as of this encounter Care Teams Senior Reactor Operator Relationship Specialty Start Date End Date Ross Wise MD 22 [facility], [address] [place] [address] [email or web address] PCP - General Family Medicine 01/12/14 Ross Wise MD [address] [place] [address], [address] [place] [address] [email or web address] Insurance Assigned Provider 06/07/23 Carrie Cho MD [address] [place] [address] Neurology 02/21/23 Ange Padilla, OT [address] [place] [phone] [email or web address] Transitions Dietitian TherapeuticPackage Lift Operator Therapy 09/15/2301/24 documented as of this encounter Additional Source Comments The information contained in this document represents components of the legal health record. It is not the complete legal health record.[facility]
--- OUTSIDE RECORDS SUMMARY | 2025-01-11 21:13 | XMS_ITS | Encounter Summary ---
Author Organization [facility] Address [facility] [employer] [facility] [address] [place] [address] Phone Care Team Providers Care Covering Machine Operator Helper Name Role Phone Ross Wise MD Primary Care Provider [phone] Ross Wise MD Unavailable [phone] Carrie Cho MD Unavailable [phone] Ange Padilla OT Unavailable [phone] Encounter Details Date Type Department Care Team (Late st Contact Info) Description 12/15/2022 Procedure Pass [facility], Ct Scan - [address] [address] Social History Tobacco Use Types Packs/Day Years [...] 1:09 PM EDT Carolyn Dhaliwal, CHANCE * [place] Suicide Severity Rating Scale (Screener/Recent Self-Report) Question [...] Telemedicine [facility] SUPPORT 2 [place] [address] Hannah Schneider, ALEX [address] [phone] 02/15/2025 11:00 AM EST Office Visit [facility] [address] [place] [address] Ross Wise MD 22 [facility], [address] [place] [address] Zahra Albert OT 8 [place] [address] 02/16/2025 2:40 PM EST Office Visit [facility] [address], [address] [place] [address] Ang Golden MD 22 [facility], [address] [place] [address] [email or web address] documented as of this encounter Visit Diagnoses Not on filedocumented in this encounter Additional Health Concerns Infection Onset Date Last Indicated Resolved Time CoV-Risk Comment:Neg covid 12/15/2022 12/15/2022 12/16/2022 7:41 AM E DT Assessment Noted Time PHQ-2 Depression Total Score: 1 08/27/19 23 3:17 PM EDT documented as of this encounter Care Teams Covering Machine Operator Helper Relationship Specialty Start Date End Date Ross Wise MD 22 [facility], [address] [place] [address] [email or web address] PCP - General Family Medicine 01/12/14 Ross Wise MD [address] [place] [address], [address] [place] [address] [email or web address] Insurance Assigned Provider 06/07/23 Carrie Cho MD [address] [place] [address] Neurology 02/21/23 Ange Padilla, OT [address] [place] [address] [email or web address] Transitions Integrated Logistics Programs DirectorLandscape Technician Therapy 09/15/2301/24 documented as of this encounter Additional Source Comments The information contained in this document represents components of the legal health record. It is not the complete legal health record.[facility]
--- OUTSIDE RECORDS SUMMARY | 2025-01-11 21:13 | XMS_ITS | Encounter Summary ---
Author Organization [facility] Address [facility] DNA SEQ [facility] [address] [place] [address] Phone Care Team Providers Care Shim Plug Cutter Name Role Phone Ross Wise MD Primary Care Provider [phone] Ross Wise MD Unavailable [phone] Carrie Cho MD Unavailable [phone] Ange Padilla OT Unavailable [phone] Encounter Details Date Type Department Care Team (Late st Contact Info) Description 10/30/2022 Procedure Pass [facility], Ct Scan - [address] [address] Social History Tobacco Use Types Packs/Day Years [...] 3:50 PM EDT Viet Oneill RN * [place] Suicide Severity Rating Scale (Screener/Recent Self-Report) Question Answer Date of Assessment Author 1. Wish to be (Past 1 Month) No 10/30/2022 3:50 PM EDT Jose Zavala, CHANCE 2. Non-Specific Active Suicidal Thoughts (Past 1 Month) No 10/30/2022 3:50 PM EDT Jose Zavala RN 6. Suicidal Behavior (Lifetime) No 10/30/2022 3:50 PM EDT Jose Zavala RN documented as of this encounter Plan of Treatment Upcoming Encounters Date Type Department Care Team (Late st Contact Info) Description 02/01/2025 2:20 PM EST Telemedicine [facility] SUPPORT 2 [place] [address] Hannah Schneider NP [address] [phone] 02/15/2025 11:00 AM EST Office Visit [facility] Rehabilitation Services [address] [place] [address] Ross Wise MD 22 [facility], [address] [place] [address] Zahra Albert OT 8 [place] [address] 02/16/2025 2:40 PM EST Office Visit [facility] [address] 3rd Floor, [address] [place] [address] Ang Golden MD 22 [facility], [address] [place] [address] [email or web address] documented as of this encounter Visit Diagnoses Not on filedocumented in this encounter Additional Health Concerns Infection Onset Date Last Indicated Resolved Time CoV-Risk Comment:Neg covid 12/15/2022 12/15/2022 12/16/2022 7:41 AM E DT Assessment Noted Time PHQ-2 Depression Total Score: 1 08/27/19 23 3:17 PM EDT documented as of this encounter Care Teams Shim Plug Cutter Relationship Specialty Start Date End Date Ross Wise MD 22 [facility], [address] [place] [address] PCP - General Family Medicine 01/12/14 Ross Wise MD 22 [facility], [address] [place] [address] Insurance Assigned Provider 06/07/23 Carrie Cho MD [address] [place] [address] Neurology 02/21/23 Ange Padilla, OT [address] [place] [address] Transitions Transplant SurgeonSeismograph Operator Helper Therapy 09/15/2301/24 documented as of this encounter Additional Source Comments The information contained in this document represents components of the legal health record. It is not the complete legal health record.[facility]
--- OUTSIDE RECORDS SUMMARY | 2025-01-11 21:13 | XMS_ITS | Encounter Summary ---
Author Organization [facility] Address [facility] [address] [place] [address] Phone Care Team Providers Care Canvas Repairer Name Role Phone Ross Wise MD Primary Care Provider [phone] Ross Wise MD Unavailable Carrie Cho MD Unavailable [phone] Ange Padilla OT Unavailable [phone] Encounter Details Date Type Department Care Team (Late st Contact Info) Description 01/25/2023 Procedure Pass [facility], Ct Scan - [address] [address] Social History Tobacco Use Types Packs/Day Years [...] 01/25/2023 12:55 PM Anai Kelly RN * [place] Suicide Severity Rating Scale (Screener/Recent Self-Report) Question [...] Info) Description 02/01/2025 2:20 PM EST Telemedicine [facility]IRTUAL CLINIC SUPPORT 2 [place] [address] Hannah Schneider, ALEX [address] [phone] 02/15/2025 11:00 AM EST Office Visit [facility] Rehabilitation Services [address] [place] [address] Ross Wise MD 22 [facility], [address] [place] [address] Zahra Albert OT 8 [place] [address] 02/16/2025 2:40 PM EST Office Visit [facility] [address]rd Floor, [address] [place] [address] Ang Golden MD 22 [facility], [address] [place] [address] [email or web address] documented as of this encounter Visit Diagnoses Not on filedocumented in this encounter Additional Health Concerns Assessment Noted Time PHQ-2 Depression Total Score: 1 08/27/19 23 3:17 PM EDT documented as of this encounter Care Teams Canvas Repairer Relationship Specialty Start Date End Date Ross Wise MD 22 [facility], [address] [place] [address] [email or web address] PCP - General Family Medicine 01/12/14 Ross Wise MD 22 [facility], [address] [place] [address] [email or web address] Insurance Assigned Provider 06/07/23 Carrie Cho MD [address] [place] [address] Neurology 02/21/23 Ange Padilla, OT [address] [place] [address] [email or web address] Transitions Solar Energy Systems DesignerDocumentation Coordinator Therapy 09/15/2301/24 documented as of this encounter Additional Source Comments The information contained in this document represents components of the legal health record. It is not the complete legal health record.[facility]
--- OUTSIDE RECORDS SUMMARY | 2025-01-11 21:13 | XMS_ITS | Encounter Summary ---
Author Organization [facility] Address [facility] [employer] [facility] [address] [place] [address] Phone Care Team Providers Care Vamp Creaser Name Role Phone Ross Wise MD Primary Care Provider [phone] Ross Wise MD Unavailable [phone] Carrie Cho MD Unavailable [phone] Ange Padilla OT Unavailable [phone] Encounter Details Date Type Department Care Team (Late st Contact Info) Description 01/25/2023 Procedure Pass [facility], Ct Scan - [address] [address] Social History Tobacco Use Types Packs/Day Years [...] 01/25/2023 12:55 PM Anai Kelly RN * [place] Suicide Severity Rating Scale (Screener/Recent Self-Report) Question [...] Info) Description 02/01/2025 2:20 PM EST Telemedicine [facility]UAL CLINIC SUPPORT 2 [place] [address] Hannah Schneider, ALEX [address] [phone] 02/15/2025 11:00 AM EST Office Visit [facility] Rehabilitation Services [address] [place] [address] Ross Wise MD 22 [facility], [address] [place] [address] Zahra Albert OT 8 [place] [address] 02/16/2025 2:40 PM EST Office Visit [facility] [address], [address] [place] [address] Ang Golden MD 22 [facility], [address] [place] [address] [email or web address] documented as of this encounter Visit Diagnoses Not on filedocumented in this encounter Additional Health Concerns Assessment Noted Time PHQ-2 Depression Total Score: 1 08/27/19 23 3:17 PM EDT documented as of this encounter Care Teams Vamp Creaser Relationship Specialty Start Date End Date Ross Wise MD 22 [facility], [address] [place] [address] [email or web address] PCP - General Family Medicine 01/12/14 Ross Wise MD 22 [facility], [address] [place] [address] [email or web address] Insurance Assigned Provider 06/07/23 Carrie Cho MD [address] [place] [address] Neurology 02/21/23 Ange Padilla, OT [address] [place] [address] [email or web address] Transitions Tracer Bullet Section SupervisorSweetbread Trimmer Therapy 09/15/2301/24 documented as of this encounter Additional Source Comments The information contained in this document represents components of the legal health record. It is not the complete legal health record.[facility]
--- OUTSIDE RECORDS SUMMARY | 2025-01-11 21:14 | XMS_ITS | Encounter Summary ---
Author Organization [facility] Address [address] [facility] [address] [place] [address] Phone Care Team Providers Care Tromper Name Role Phone Ross Wise MD Primary Care Provider [phone] Ross Wise MD Unavailable [phone] Carrie Cho MD Unavailable [phone] Reason for Visit * Reason Onset Date Comments DME 10/12/2024 Wheelchair Referral 10/12/2024 VNA Encounter Details Date Type Department Care Team (Late st Contact Info) Description 10/12/2024 Telephone [employer] [address] [address] Ross Wise MD 22 [facility], [address] [place] [address] [email or web address] DME (Wheelchair ); Referral (VNA) Social History [...] 11:11 AM EDT Patient will need a qjrr-qv-jvxv visit prior to VNA referral per insurance [...] wheelchair. Please contact and advise. Central Support Tank Officer (Please do not reply to this user; this inbox is not monitored.) Thank you. documented in this encounter Plan of Treatment Upcoming Encounters Date Type Department Care Team (Late st Contact Info) Description 02/01/2025 2:20 PM EST Telemedicine [facility] CLIN[facility] SUPPORT 2 [place] [address] Hannah Schneider, ALEX [address] [phone] 02/15/2025 11:00 AM EST Office Visit [facility] Rehabilitation Services 8 [place] [address] Ross Wise MD [address] [place] [address], [address] [address] Zahra Albert OT 8 [place] [address] 02/16/2025 2:40 PM EST Office Visit [facility] [address] [place] [address] 3rd Floor, [address] [place] [address] Ang Golden MD 22 [facility], [address] [address] documented as of this encounter Visit Diagnoses Not on filedocumented in this encounter Additional Health Concerns Assessment Noted Time PHQ-2 Depression Total Score: 2 08/12/19 25 3:55 PM EDT documented as of this encounter Care Teams Tromper Relationship Specialty Start Date End Date Ross Wise MD [address] [place] [address], [address] [place] [address] PCP - General Family Medicine 01/12/14 Ross Wise MD 22 [facility], [address] [place] [address] [email or web address] Insurance Assigned Provider 06/07/23 Carrie Cho MD [address] [place] [address] Neurology 02/21/23 documented as of this encounter Additional Source Comments The information contained in this document represents components of the legal health record. It is not the complete legal health record.[facility]
--- OUTSIDE RECORDS SUMMARY | 2025-01-11 21:14 | XMS_ITS | Encounter Summary ---
Author Organization [facility] Address [address] [place] [address] Phone Care Team Providers Care Lighting Fixtures Decorator Name Role Phone Ross Wise MD Primary Care Provider [phone] Ross Wise MD Unavailable [phone] Carrie Cho MD Unavailable [phone] Ange Padilla OT Unavailable [phone] Encounter Details Date Type Department Care Team (Late st Contact Info) Description 09/08/2023 Procedure Pass [facility], Ct Scan - [address] [address] Social History Tobacco Use Types Packs/Day Years [...] Info) Description 02/01/2025 2:20 PM EST Telemedicine [facility] VIRTUAL CLINIC SUPPORT 2 [place] [address] Hannah Schneider NP [address] [phone] 02/15/2025 11:00 AM EST Office Visit [facility] Rehabilitation Services [address] [place] [address] Ross Wise MD [address] [place] [address], [address] [address] Zahra Albert OT 8 [place] [address] 02/16/2025 2:40 PM EST Office Visit [facility] [address] [place] [address] 3rd Floor, [address] [place] [address] Ang Golden MD [address] [place] [address], [address] [address] documented as of this encounter Visit Diagnoses Not on filedocumented in this encounter Additional Health Concerns Assessment Noted Time PHQ-2 Depression Total Score: 1 08/27/19 23 3:17 PM EDT documented as of this encounter Care Teams Lighting Fixtures Decorator Relationship Specialty Start Date End Date Ross Wise MD [address] [place] [address], [address] [place] [address] [email or web address] PCP - General Family Medicine 01/12/14 Ross Wise MD [address] [place] [address], [address] [place] [address] [email or web address] Insurance Assigned Provider 06/07/23 Carrie Cho MD [address] [place] [address] Neurology 02/21/23 Ange Padilla, OT [address] [place] [address] [email or web address] Transitions Oven BuilderSenior Marketing Engineer Therapy 09/15/2301/24 documented as of this encounter Additional Source Comments The information contained in this document represents components of the legal health record. It is not the complete legal health record.[facility]
== END ==
LOC: HO.SL 19:30
PROVIDERS: PCP Pediatrics; Visit Provider Physician Assistant Medical
DX: G47.33 Obstructive sleep apnea (adult) (pediatric) (principal); G47.419 Narcolepsy without cataplexy; G47.19 Other hypersomnia
CPT/HCPCS: 95811

== ENCOUNTER → 2025-01-11 21:10 | Outpatient (BNV) | payer MEDICARE, SELFPAY | PROVIDERS: PCP Pediatrics; Visit Provider Psychiatry & Neurology Neurology | DX: G47.33 Obstructive sleep apnea (adult) (pediatric) (principal) | CPT/HCPCS: 95811 ==

== ENCOUNTER → 2025-01-19 14:07 | Outpatient (BNVA) | payer MEDICARE, SELFPAY | PROVIDERS: PCP Pediatrics; Visit Provider Registered Nurse | DX: G40.909 Epilepsy, unspecified, not intractable, without status epilepticus (principal); R42 Dizziness and giddiness; G11.9 Hereditary ataxia, unspecified; G47.429 Narcolepsy in conditions classified elsewhere without cataplexy | CPT/HCPCS: 99212 ==

== ENCOUNTER → 2025-01-19 14:07 | Outpatient (AMB) | payer MEDICARE, SELFPAY ==
--- NOTE | 2025-01-19 14:09 | A.OFFVIS_ITS ---
Intake Visit Reasons: 4m Accompanied by: Spouse Allergies No Known Allergies Allergy (Verified 01/19/25 14:13) Medication List - Last Reconciled 01/19/25 by Jennifer Stack CNP foocmao-nptrzlzlntxbc-xinjrgeo 250-250-65 mg (Excedrin Migraine) 2 tabs PO Q6H PRN atorvastatin 20 mg PO DAILY cholecalciferol (vitamin D3) 125 mcg PO DAILY divalproex 250 mg PO BID 90 days escitalopram oxalate 20 mg PO DAILY fluoxetine 40 mg PO DAILY lisinopril 10 mg PO DAILY meclizine 12.5 mg PO TID PRN 30 days HPI Comments Details: He was taking Depakote twice a day, no seizures. He was in wheelchair and transfers bed to chair. Does some home exercises. Constant feeling of vertigo, can be worse at times than others. Meclizine helps. No recent falls. 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 Constant headaches. Sleeping 14-18 hours/day. Using CPAP. Has nightmares. He had appointment with Jasper KEARNEY at [facility] in 12/2024 and had in-lab sleep study ordered which he apparently had done, report not available at this time. Sleeps 18 hrs a day. Nightmares. Constant headaches, takes 2 Excedrin twice a day.? Seeing psychiatrist. Last seizure on 09/08/2023. Restarted on Depakote.?Back to his baseline with poor balance and his knee gives out. He is in w/c and transfers to bed and chair by himself with effort. Vertigo is better. Swallowing and aspiration is better. Not using his new CPAP mask. 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 He falls frequently, and had 2 concussions in January 2023 and hit his head. On 01/25/2023, he had a 15 min. generalized seizure that was witnessed and he was taken to the hospital where a CT scan and CT angiogram was negative. He was started on Keppra 250 mg twice a day which he was unable to take because of side effects and mental changes and developed a lot of agitation with it. He apparently had an EEG, routinely, which was normal. No previous history of seizures. [facility] Medical History (Updated 01/19/25 @ 14:21 by Jennifer Stack CNP) VALENTÍN (obstructive sleep apnea) Narcolepsy Cerebellar ataxia Seizure disorder Review of Systems Const Denies chills, Denies daytime sleepiness, Denies difficulty sleeping, Reports fatigue, Denies fever(s), Denies frequent falls, Reports headache(s), Denies increased appetite, Denies poor appetite, Denies snoring, Denies weakness, Denies weight gain and Denies weight loss Eyes Denies loss of vision ENT Denies vertigo, Reports dizziness, Reports headache(s) and Denies neck pain Card Denies chest pain at rest, Denies chest pain with activity, Denies syncope, Denies leg edema, Denies palpitations, Denies dyspnea and Denies dyspnea on exertion Resp Denies cough, Denies dyspnea, Denies dyspnea on exertion and Denies snoring GI Denies abdominal pain, Denies constipation, Denies heartburn, Denies diarrhea and Denies nausea Denies urinary frequency, Denies urinary incontinence and Denies urinary urgency Musc Reports abnormal gait (balance difficulty), Denies back pain, Denies myalgias, Denies arthralgias, Denies neck pain, Denies numbness and Denies tingling Neuro Reports abnormal gait (balance difficulty), Denies vertigo, Reports dizziness, Denies syncope, Denies frequent falls, Reports headache(s), Reports lack of coordination, Denies loss of vision, Denies memory loss, Denies numbness, Denies Other visual disturbances, Denies restless legs, Denies seizure-like activity, Denies tingling, Denies paresthesias, Denies tremor(s) and Denies weakness Psych Denies anxiety, Reports depression, Denies auditory hallucinations, Denies memory loss and Denies visual hallucinations Endo Reports fatigue and Denies palpitations Physical Exam Const Other: General Appearance:? normal, in no acute distress. Heart:? S1, S2 normal, no murmurs. Lungs:? clear anteriorly and posteriorly. Musculoskeletal:? normal. Extremities:? no edema. Psych:? alert, oriented, cognitive function intact, cooperative with exam. 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 Nystagmus on lateral gaze. In wheelchair. Mental Status: alert and oriented X 3. Normal attention, orientation, memory, and affect. Cranial Nerves: Pupils are equal, round, and reactive to light. External ocular muscles are intact. Visual pope are full, no ptosis. Face is symmetrical, no facial weakness or droop. Facial sensations are normal. Tongue protrudes in midline. Palate elevates symmetrically. Shoulder shrugging is normal Motor Examination: Normal muscle tone, bulk and strength. No atrophy or fasciculations. No drift of the extended upper extremities. DTR 2+. Plantars are flexor. Sensory Exam: Normal light touch, temperature, pinprick, vibration, and joint- position sensations. Rhomberg sign is absent. Coordination: Cerebellar ataxia. FTN, ulvj-afrr-ajso test and rapid alternating movements were abnormal. Gait Exam: In wheelchair. Broad-based cerebellar gait, using walker. Unable to stand on narrow base or walk with narrow base without falling. Cerebellar Signs: Dysmetria on visjrh-em-mpqt and dhjm-gb-uqhy. Extrapyramidal System: No tremor, rigidity with normal facial expressions. No bradykinesia. No bradyphrenia. Normal arm swing and posture. No propulsion or retropulsion. Speech: Normal. Results Reviewed Results Reviewed: 01/25/[address] angio normal 08/26/24 Sleep study shows severe VALENTÍN with O2 sats down to 79% an dbelow 88% for 33 minutes. Assessment & Plan Assessment & Plan (1) Seizure disorder: Code(s): G40.909 - Epilepsy, unspecified, not intractable, without status epilepticus Category: Medical Plan: Continue Depakote DR 250mg 1 tablet twice a day. 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 (3) Vertigo: Code(s): R42 - Dizziness and giddiness Category: Medical Plan: Continue meclizine 12.5mg 1 tablet three times a day as needed for dizziness. (4) Narcolepsy: Code(s): G47.419 - Narcolepsy without cataplexy Category: Medical Qualifiers: Narcolepsy type: due to underlying condition without cataplexy Qualified Code(s): G47.429 - Narcolepsy in conditions classified elsewhere without cataplexy Plan: He had appointment with Jasper KEARNEY at [facility] in 12/2024 for narcolepsy evaluation. He was hoping this appointment was to review sleep study results and to start Sunosi. I do not see sleep study results available at this time. He was advised to follow up with [facility] regarding sleep study results and medication. He had follow up appointment scheduled for 03/2025. Coding Level of Care Code Est Pt Level 4 (54268) Diagnoses Seizure disorder G40.909 Cerebellar ataxia G11.9 Vertigo R42 Narcolepsy due to underlying condition without cataplexy G47.429 Narcolepsy type: due to underlying condition without cataplexy
--- OUTSIDE RECORDS SUMMARY | 2025-01-20 02:29 | XMS_ITS | Encounter Summary ---
Author Organization [facility] Address [address] [place] [address] Phone Care Team Providers Care Thermometer Production Worker Name Role Phone Ross Wise MD Primary Care Provider [phone] Ross Wise MD Unavailable Ange Padilla OT Unavailable [phone] Ange Padilla OT Unavailable [phone] Carrie Cho MD Unavailable Ange Padilla OT Unavailable [phone] Reason for Referral * Speech Therapy (Routine) - Closed Specialty Diagnoses / Procedures Referred By Contmami t Referred To Contact Speech Pathology Diagnoses Ataxia Carrie Cho MD Phone: tel: fax: [facility] [address] [place] [address] Phone: tel: Referral ID Status Reason Start Date Expiration Date Visits Re quested Visits Authorized [id number] Closed 12/28/2018 12/29/2019 99 [phone] Encounter Details Date Type Department Care Team (Latest Contact Info) Description 12/28/2018 Transcribe Orders [facility] 8 [place] [address] Carrie Cho MD [address] [place] [address] Ataxia (Primary Dx) Social History Tobacco Use [...] Info) Description 02/01/2025 2:20 PM EST Telemedicine [facility]UAL CLINIC SUPPORT 2 [place] [address] Hannah Schneider FNP [address] [phone] 02/15/2025 11:00 AM EST Office Visit [facility] 8 [place] [address] Ross Wise MD 22 [facility], [address] [place] [address] Zahra Albert OT 8 [place] [address] 02/16/2025 2:40 PM EST Office Visit [facility] [address] [place] [address] 3rd Floor, [address] [place] [address] Ang Golden MD 22 [facility], [address] [place] [address] documented as of this encounter Procedures Procedure Name Priority Date/Time Associated Diagnosis Comments AMB REFERRAL TO [facility] SPEECH AND LANGUAGE PATHOLOGY Routine 02/03/2019 12:38 PM EST Ataxia documented in this encounter Results * Ambulatory referral to [facility] Speech Language Pathology (02/03/2019 12:38 PM EST) Carrie [facility] REFERRALS Final Res ult documented in this encounter Visit Diagnoses Diagnosis Ataxia- Primary Lack of coordination documented in this encounter Additional Health Concerns Infection Onset Date Last Indicated Resolved Time CoV-Risk Comment:Neg covid 12/15/2022 12/15/2022 12/16/2022 7:41 AM E DT documented as of this encounter Care Teams Thermometer Production Worker Relationship Specialty Start Date End Date Ross Wise MD [address] [place] [address] [email or web address] PCP - General Family Medicine 01/12/14 Ross Wise MD [address] [place] [address], [address] [address] Insurance Assigned Provider 06/07/23 Ange Padilla, OT [address] [place] [address] Transitions Rope Coiling Machine Operator 12/10/21 2 Ange Padilla, OT [address] [place] [address] [email or web address] Transitions Rope Coiling Machine Operator 12/27/21 01/01/22 Carrie Cho MD [address] [place] [address] Neurology 02/21/23 Ange Padilla, OT [address] [place] [address] [email or web address] Transitions Rope Coiling Machine OperatorAerial Photograph Interpreter Therapy 09/15/2301/24 documented as of this encounter Additional Source Comments The information contained in this document represents components of the legal health record. It is not the complete legal health record.[facility]
--- OUTSIDE RECORDS SUMMARY | 2025-01-20 02:29 | XMS_ITS | Encounter Summary ---
Author Organization [facility] Address [address] [place] [address] Phone Care Team Providers Care Medical Radiation Therapist Name Role Phone Ross Wise MD Primary Care Provider [phone] Ross Wise MD Unavailable [phone] Carrie Cho MD Unavailable [phone] Ange Padilla OT Unavailable [phone] Encounter Details Date Type Department Care Team (Late st Contact Info) Description 09/08/2023 Procedure Pass [facility], Ct Scan - [address] [address] Social History Tobacco Use Types Packs/Day Years [...] Info) Description 02/01/2025 2:20 PM EST Telemedicine [facility]PPORT 2 [place] [address] Hannah Schneider FNP [address] [phone] 02/15/2025 11:00 AM EST Office Visit [facility] [address] [place] [address] Ross Wise MD [address] [place] [address], [address] [place] [address] Zahra Albert OT 8 [place] [address] 02/16/2025 2:40 PM EST Office Visit [facility] [address] [place] [address] 3rd Floor, [address] [place] [address] Ang Golden MD [address] [place] [address], [address] [address] documented as of this encounter Visit Diagnoses Not on filedocumented in this encounter Additional Health Concerns Assessment Noted Time PHQ-2 Depression Total Score: 1 08/27/19 23 3:17 PM EDT documented as of this encounter Care Teams Medical Radiation Therapist Relationship Specialty Start Date End Date Ross Wise MD [address] [place] [address], [address] [place] [address] [email or web address] PCP - General Family Medicine 01/12/14 Ross Wise MD [address] [place] [address], [address] [place] [address] [email or web address] Insurance Assigned Provider 06/07/23 Carrie Cho MD [address] [place] [address] Neurology 02/21/23 Ange Padilla, OT [address] [place] [address] [email or web address] Transitions Farm Management TeacherManager Sound Therapy 09/15/2301/24 documented as of this encounter Additional Source Comments The information contained in this document represents components of the legal health record. It is not the complete legal health record.[facility]
--- OUTSIDE RECORDS SUMMARY | 2025-01-20 02:29 | XMS_ITS | Encounter Summary ---
Author Organization [facility] Address [facility] [address] [address] Phone Care Team Providers Care System Integration Engineer Name Role Phone Ross Wise MD Primary Care Provider [phone] Ross Wise MD Unavailable [phone] Ange Padilla OT Unavailable Ange Padilla OT Unavailable [phone] Carrie Cho MD Unavailable [phone] Ange Padilla OT Unavailable [phone] Encounter Details Date Type Department Care Team (Late st Contact Info) Description 12/08/2021 Procedure Pass [facility], [address] [address] Social History Tobacco Use Types Packs/Day Years [...] 4:14 PM EDT Kristen Perrin RN * [place] Suicide Severity Rating Scale (Screener/Recent Self-Report) Question Answer Date of Assessment Author 1. Wish to be (Past 1 Month) No 022 4:14 PM EDT Kristen Art, CHANCE 2. Non-Specific Active Suici danae Thoughts (Past 1 Month) No 12/08/2021 4:14 PM EDT Jasmine Art, CHANCE 6. Suicidal Behavior (Lifetime) No 4:14 PM EDT Krsiten Art, CHANCE documented as of this encounter Plan of Treatment Upcoming Encounters Date Type Department Care Team (Late st Contact Info) Description 02/01/2025 2:20 PM EST Telemedicine [facility] 2 [place] [address] Hannah Schneider FNP [address] [phone] 02/15/2025 11:00 AM EST Office Visit [facility] Services [address] [place] [address] [place] [address] Ross Wise MD [address] [place] [address], [address] [place] [address] Zahra Albert OT 8 [place] [address] 02/16/2025 2:40 PM EST Office Visit [facility] [address] [place] [address] 3rd Floor, [address] [place] [address] Ang Golden MD [address] [place] [address], [address] [address] documented as of this encounter Visit Diagnoses Not on filedocumented in this encounter Additional Health Concerns Infection Onset Date Last Indicated Resolved Time CoV-Risk Comment:Neg covid 12/15/2022 12/15/2022 12/16/2022 7:41 AM E DT Assessment Noted Time PHQ-2 Depression Total Score: 1 11/04/19 20 3:40 PM EDT documented as of this encounter Care Teams System Integration Engineer Relationship Specialty Start Date End Date Ross Wise MD 22 [facility], [address] [place] [address] PCP - General Family Medicine 01/12/14 Ross Wise MD 22 [facility], [address] [place] [address] Insurance Assigned Provider 06/07/23 Ange Padilla, OT 30 [place] [address] Transitions Men'S Leather Dress Belt Maker 12/10/21 2 Ange Padilla, OT 30 [place] [address] Transitions Men'S Leather Dress Belt Maker 12/27/21 01/01/22 Carrie Cho MD [address] [place] [address] Neurology 02/21/23 Ange Padilla, OT 30 [place] [address] Transitions Men'S Leather Dress Belt MakerCeramics Artist Therapy 09/15/2301/24 documented as of this encounter Additional Source Comments The information contained in this document represents components of the legal health record. It is not the complete legal health record.[facility]
--- OUTSIDE RECORDS SUMMARY | 2025-01-20 02:29 | XMS_ITS | Encounter Summary ---
Author Organization [facility] Address [facility] [address] [place] [address] Phone Care Team Providers Care Rubber Printing Machine Operator Name Role Phone Ross Wise MD Primary Care Provider Ross Wise MD Unavailable [phone] Carrie Cho MD Unavailable [phone] Ange Padilla OT Unavailable [phone] Encounter Details Date Type Department Care Team (Late st Contact Info) Description 12/15/2022 Procedure Pass [facility], Ct Scan - [address] [address] Social History Tobacco Use Types Packs/Day Years [...] 1:09 PM EDT Carolyn Dhaliwal RN * [place] Suicide Severity Rating Scale (Screener/Recent Self-Report) Question [...] Info) Description 02/01/2025 2:20 PM EST Telemedicine [facility] SUPPORT 2 [place] [address] Hannah Schneider FNP [address] [phone] 02/15/2025 11:00 AM EST Office Visit [facility] Services [address] [place] [address] Ross Wise MD 22 [facility], [address] [place] [address] Zahra Albert OT 8 [place] [address] 02/16/2025 2:40 PM EST Office Visit [facility] [address] 3rd Floor, [address] [place] [address] Ang Golden MD 22 [facility], [address] [place] [address] [email or web address] documented as of this encounter Visit Diagnoses Not on filedocumented in this encounter Additional Health Concerns Infection Onset Date Last Indicated Resolved Time CoV-Risk Comment:Neg covid 12/15/2022 12/15/2022 12/16/2022 7:41 AM E DT Assessment Noted Time PHQ-2 Depression Total Score: 1 08/27/19 23 3:17 PM EDT documented as of this encounter Care Teams Rubber Printing Machine Operator Relationship Specialty Start Date End Date Ross Wise MD 22 [facility], [address] [place] [address] [email or web address] PCP - General Family Medicine 01/12/14 Ross Wise MD 22 [facility], [address] [place] [address] [email or web address] Insurance Assigned Provider 06/07/23 Carrie Cho MD 41 [place] [address] Neurology 02/21/23 Ange Padilla, OT [address] [place] [address] [email or web address] Transitions Pattern Changer And RepairerHome Builder Therapy 09/15/2301/24 documented as of this encounter Additional Source Comments The information contained in this document represents components of the legal health record. It is not the complete legal health record.[facility]
--- OUTSIDE RECORDS SUMMARY | 2025-01-20 02:29 | XMS_ITS | Encounter Summary ---
Author Organization [facility] Address [facility] [address] [place] [address] Phone Care Team Providers Care Rn Traveling Name Role Phone Ross Wise MD Primary Care Provider Ross Wise MD Unavailable [phone] Carrie Cho MD Unavailable [phone] Ange Padilla OT Unavailable [phone] Encounter Details Date Type Department Care Team (Late st Contact Info) Description 12/15/2022 Procedure Pass [facility], [address] [address] Social History Tobacco Use Types Packs/Day Years [...] 1:09 PM EDT Carolyn Dhaliwal RN * [place] Suicide Severity Rating Scale (Screener/Recent Self-Report) Question [...] Info) Description 02/01/2025 2:[address] [facility] SUPPORT 2 [place] [address] Hannah Schneider FNP [address] [phone] 02/15/2025 11:00 AM EST Office Visit [facility] Services [address] [place] [address] Ross Wise MD 22 [facility], [address] [place] [address] Zahra Albert OT 8 [place] [address] 02/16/2025 2:40 PM EST Office Visit [facility] [address]rd Floor, [address] [place] [address] Ang Golden MD 22 [facility], [address] [place] [address] [email or web address] documented as of this encounter Visit Diagnoses Not on filedocumented in this encounter Additional Health Concerns Infection Onset Date Last Indicated Resolved Time CoV-Risk Comment:Neg covid 12/15/2022 12/15/2022 12/16/2022 7:41 AM E DT Assessment Noted Time PHQ-2 Depression Total Score: 1 08/27/19 23 3:17 PM EDT documented as of this encounter Care Teams Rn Traveling Relationship Specialty Start Date End Date Ross Wise MD 22 [facility], [address] [place] [address] [email or web address] PCP - General Family Medicine 01/12/14 Ross Wise MD [address] [place] [address], [address] [place] [address] [email or web address] Insurance Assigned Provider 06/07/23 Carrie Cho MD [address] [place] [address] Neurology 02/21/23 Ange Padilla, OT [address] [place] [address] [email or web address] Transitions Body FormerSupervisor Hard Candy Therapy 09/15/2301/24 documented as of this encounter Additional Source Comments The information contained in this document represents components of the legal health record. It is not the complete legal health record.[facility]
--- OUTSIDE RECORDS SUMMARY | 2025-01-20 02:29 | XMS_ITS | Encounter Summary ---
Author Organization [facility] Address [facility] [address] [place] [address] Phone Care Team Providers Care Mill Work Name Role Phone Ross Wise MD Primary Care Provider [phone] Ross Wise MD Unavailable [phone] Carrie Cho MD Unavailable [phone] Ange Padilla OT Unavailable [phone] Encounter Details Date Type Department Care Team (Late st Contact Info) Description 01/25/2023 Procedure Pass [facility], Ct Scan - [address] [address] Social History Tobacco Use Types Packs/Day Years [...] 01/25/2023 12:55 PM Anai Kelly RN * [place] Suicide Severity Rating Scale (Screener/Recent Self-Report) Question [...] Info) Description 02/01/2025 2:20 PM EST Telemedicine [facility] SUPPORT 2 [place] [address] Hannah Schneider FNP [address] [phone] 02/15/2025 11:00 AM EST Office Visit [facility] Rehabilitation Services [address] [place] [address] Ross Wise MD 22 [facility], [address] [place] [address] aZhra Albert OT 8 [place] [address] 02/16/2025 2:40 PM EST Office Visit [facility] [address] Floor, [address] [place] [address] Ang Golden MD 22 [facility], [address] [place] [address] [email or web address] documented as of this encounter Visit Diagnoses Not on filedocumented in this encounter Additional Health Concerns Assessment Noted Time PHQ-2 Depression Total Score: 1 08/27/19 23 3:17 PM EDT documented as of this encounter Care Teams Mill Work Relationship Specialty Start Date End Date Ross Wise MD 22 [facility], [address] [place] [address] [email or web address] PCP - General Family Medicine 01/12/14 Ross Wise MD 22 [facility], [address] [place] [address] [email or web address] Insurance Assigned Provider 06/07/23 Carrie Cho MD [address] [place] [address] Neurology 02/21/23 Ange Padilla, OT [address] [place] [address] [email or web address] Transitions Cement RubberBroadcast Operations Manager Therapy 09/15/2301/24 documented as of this encounter Additional Source Comments The information contained in this document represents components of the legal health record. It is not the complete legal health record.[facility]
--- OUTSIDE RECORDS SUMMARY | 2025-01-20 02:29 | XMS_ITS | Encounter Summary ---
Author Organization [facility] Address [facility] [address] [place] [address] Phone Care Team Providers Care Md Ophthalmologist Name Role Phone Ross Wise MD Primary Care Provider [phone] Ross Wise MD Unavailable [phone] Carrie Cho MD Unavailable [phone] Ange Padilla OT Unavailable [phone] Encounter Details Date Type Department Care Team (Late st Contact Info) Description 10/30/2022 Procedure Pass [facility], Ct Scan - [address] [address] Social History Tobacco Use Types Packs/Day Years [...] 3:50 PM EDT Viet Oneill RN * [place] Suicide Severity Rating Scale (Screener/Recent Self-Report) Question [...] Info) Description 02/01/2025 2:20 PM EST Telemedicine [facility] SUPPORT 2 [place] [address] Hannah Schneider FNP [address] [phone] 02/15/2025 11:00 AM EST Office Visit [facility] [address] [place] [address] Ross Wise MD 22 [facility], [address] [place] [address] Zahra Albert OT 8 [place] [address] 02/16/2025 2:40 PM EST Office Visit [facility] [address] 3rd Floor, [address] [place] [address] Ang Golden MD 22 [facility], [address] [place] [address] [email or web address] documented as of this encounter Visit Diagnoses Not on filedocumented in this encounter Additional Health Concerns Infection Onset Date Last Indicated Resolved Time CoV-Risk Comment:Neg covid 12/15/2022 12/15/2022 12/16/2022 7:41 AM E DT Assessment Noted Time PHQ-2 Depression Total Score: 1 08/27/19 23 3:17 PM EDT documented as of this encounter Care Teams Md Ophthalmologist Relationship Specialty Start Date End Date Ross Wise MD [address] [place] [address], [address] [place] [address] PCP - General Family Medicine 01/12/14 Ross Wise MD [address] [place] [address], [address] [place] [address] Insurance Assigned Provider 06/07/23 Carrie Cho MD [address] [place] [address] Neurology 02/21/23 Ange Padilla, OT [address] [place] [address] Transitions Color Straining Bag WasherBar Machine Operator Multiple Spindle Therapy 09/15/2301/24 documented as of this encounter Additional Source Comments The information contained in this document represents components of the legal health record. It is not the complete legal health record.[facility]
--- OUTSIDE RECORDS SUMMARY | 2025-01-20 02:29 | XMS_ITS | Encounter Summary ---
Author Organization [facility] Address [facility] [address] [address] Phone Care Team Providers Care Tobacco Blender Name Role Phone Ross Wise MD Primary Care Provider [phone] Ross Wise MD Unavailable [phone] Ange Padilla OT Unavailable Ange Padilla OT Unavailable [phone] Carrie Cho MD Unavailable [phone] Ange Padilla OT Unavailable [phone] Encounter Details Date Type Department Care Team (Late st Contact Info) Description 12/10/2021 Procedure Pass [facility] 30 [place] [address] Social History Tobacco Use Types Packs/Day Years [...] Info) Description 02/01/2025 2:20 PM EST Telemedicine [facility] SUPPORT 2 [place] [address] Hannah Schneider FNP [address] [address] 02/15/2025 11:00 AM EST Office Visit [facility] Services [address] [place] [address] Ross Wise MD 22 [facility], [address] [place] [address] [email or web address] Zahra Albert OT 8 [place] [address] [email or web address] 02/16/2025 2:40 PM EST Office Visit [facility] [address], [address] [place] [address] Ang Golden MD 22 [facility] 301 [place] [address] [email or web address] documented as of this encounter Visit Diagnoses Not on filedocumented in this encounter Additional Health Concerns Infection Onset Date Last Indicated Resolved Time CoV-Risk Comment:Neg covid 12/15/2022 12/15/2022 12/16/2022 7:41 AM E DT Assessment Noted Time PHQ-2 Depression Total Score: 1 11/04/19 20 3:40 PM EDT documented as of this encounter Care Teams Tobacco Blender Relationship Specialty Start Date End Date Ross Wise MD [address] [place] [address], [address] [place] [address] [email or web address] PCP - General Family Medicine 01/12/14 Ross Wise MD [address] [place] [address], [address] [place] [address] [email or web address] Insurance Assigned Provider 06/07/23 Ange Padilla, OT 30 [place] [address] Transitions Cutter And Paster Press Clippings 12/10/21 2 Ange Padilla, OT 30 [place] [address] [email or web address] Transitions Cutter And Paster Press Clippings 12/27/21 01/01/22 Carrie Cho MD [address] [place] [address] Neurology 02/21/23 Ange Padilla, OT 30 [place] [address] [email or web address] Transitions Cutter And Paster Press ClippingsSilicator Therapy 09/15/2301/24 documented as of this encounter Additional Source Comments The information contained in this document represents components of the legal health record. It is not the complete legal health record.[facility]
--- OUTSIDE RECORDS SUMMARY | 2025-01-20 02:29 | XMS_ITS | Encounter Summary ---
Author Organization [facility] Address [address] [place] [address] Phone Care Team Providers Care Solution Coordinator Name Role Phone Ross Wise MD Primary Care Provider [phone] Ross Wise MD Unavailable [phone] Ange Padilla OT Unavailable Ange Padilla OT Unavailable [phone] Carrie Cho MD Unavailable [phone] Ange Padilla OT Unavailable [phone] Reason for Referral * Occupational Therapy (Routine) - Closed Specialty Diagnoses / Procedures Referred By Lamont t Referred To Contact Occupational Therapy Diagnoses Encounter for rehabilitation Ross Wise MD Phone: tel: fax: [email or web address] [address] [address] Phone: tel: Referral ID Status Reason Start Date Expiration Date Visits Re quested Visits Authorized [id number] Closed 10/05/2020 10/05/2021 1 1 Encounter Details Date Type Department Care Team (Latest Contact Info) Description 10/05/2020 Transcribe Orders [facility] Services [address] [place] [address] Ross Wise MD 22 [facility], [address] [place] [address] [email or web address] Encounter for rehabilitation (Primary Dx) [...] Info) Description 02/01/2025 2:20 PM EST Telemedicine [facility] SUPPORT 2 [place] [address] Hannah Schneider FNP [address] [phone] 02/15/2025 11:00 AM EST Office Visit [facility] [address] [place] [address] Ross Wise MD [address] [place] [address], [address] [place] [address] Zahra Albert OT 8 [place] [address] 02/16/2025 2:40 PM EST Office Visit [facility] [address] [place] [address] 3rd Floor, [address] [place] [address] Ang Golden MD 22 [facility], [address] [place] [address] Scheduled Referrals Name Type Priority Associated Diagnoses Orde r Schedule Ambulatory referral to [facility] Occupational Therapy Outpatient Referral Routine Encounter [...] documented as of this encounter Care Teams Solution Coordinator Relationship Specialty Start Date End Date Ross Wise MD [address] [place] [address] [email or web address] PCP - General Family Medicine 01/12/14 Ross Wise MD [address] [place] [address], [address] [address] [email or web address] Insurance Assigned Provider 06/07/23 Ange Padilla, OT [address] [place] [address] [email or web address] Transitions Radio Artist 12/10/21 2 Ange Padilla, OT 30 [place] [address] Transitions Radio Artist 12/27/21 01/01/22 Carrie Cho MD [address] [place] [address] Neurology 02/21/23 Ange Padilla, OT [address] [place] [address] (work) [email or web address] Transitions Radio ArtistEmployee Relations Administrator Therapy 09/15/2301/24 documented as of this encounter Additional Source Comments The information contained in this document represents components of the legal health record. It is not the complete legal health record.[facility]
--- OUTSIDE RECORDS SUMMARY | 2025-01-20 02:29 | XMS_ITS | Clinical Summary ---
Author Organization [facility] Address [address] [place] [address] Care Team Providers Care Strapper And Buffer Name Role Phone Ross Wise Primary Care Provider [phone] Allergies Active Allergy Reactions Criticality Noted Date [...] Social Drivers of Health Annual Screening 03/03/2024 Influenza Vaccine (#1) 2024 12/10/2021 COVID-19 Vaccine ( season) 2024 11/22/2021, 06/29/2021, 12/20/2020, Additional history exists DTaP,Tdap,and Td Vaccines (3 - Td or Tdap) 11/25/2030 11/25/2020, 10/01/2016 Pneumococcal Vaccine: 50+ Years Completed 10/15/2021, 11/04/2019 Hepatitis B Vaccines Aged Out No long er eligible based on patient's age to complete this topic Procedures * Due to [place] state law, this organization might not be sharing negative HIV tests. Procedure Name Priority Date/Time Associated Diagnosis Comments RENAL FUNCTION PANEL Routine 11/02/2020 11:43 AM EDT Hypokalemia from Last 3 Months or Most Recently Relevant to Health Maintenance Results * Due to [place] state law, this organization might not be sharing negative HIV tests. * (ABNORMAL) Renal Function Panel (11/02/2020 11:43 AM EDT) NA 141 135 - 145 mmol/L 11/02/2020 12:23 PM EDT [facility] K 4.5 3.5 - 5.3 mmol/L 11/02/2020 12:23 PM EDT [facility] Cl 105 97 - 110 mmol/L 11/02/2020 12:23 PM EDT [facility] CO2 28 24 - 32 mmol/L 11/02/2020 12:23 PM EDT [facility] Anion Gap 8 5 - 15 11/02/2020 12:23 PM EDT [facility] Glucose 60(L) 70 - 99 mg/dL 11/02/2020 12:23 PM EDT [facility] BUN 37(H) 7 - 23 mg/dL 11/02/2020 12:23 PM EDT [facility] Creatinine 1.24 0.60 - 1.30 mg/dL 11/02/2020 12:23 PM EDT [facility] eGFR Non- 58(L) >=90 mL/min/BSA 11/02/2020 12:23 PM EDT [facility] eGFR 67(L) >=90 mL/min/BSA 11/02/2020 12:23 PM EDT [facility] Comment: Units = mL/min/1.73 m2 Glomerular Filtration Rate (GFR) is estimated based on the CKD-EPI Creatinine Equation (2009). Stage Description GFR 1 Normal >=90 mL/min/BSA 2 Mildly decreased GFR 60-89 mL/min/BSA 3 Moderately decreased GFR 30-59 mL/min/BSA 4 Severely decreased GFR 15-29 mL/min/BSA 5 Kidney Failure <15 mL/min/BSA Calcium 8.9 8.7 - 10.7 mg/dL 11/02/2020 12:23 PM EDT [facility] Phosphorus 2.6 2.5 - 4.5 mg/dL 11/02/2020 12:23 PM EDT [facility] Albumin 3.9 3.5 - 4.8 g/dL 11/02/2020 12:23 PM EDT [facility] Blood Structure of peripheral vein / Unknown Venipuncture / Unknown 11/02/2020 11:43 AM EDT 11/02/2020 11:55 AM EDT us Viet Carrizales MD LAB BLOOD ORDERABLES Final Result Performing Organization Address City/State/[facility] Co de Phone Number [facility] [address] [place] [address] from Last 3 Months or Most Recently Relevant to Health Maintenance Insurance MEDICARE [facility] Care Teams Strapper And Buffer Relationship Specialty Start Date End Date FridaemmahumbertoRoss [address] [address] PCP - General Family Medicine 05/20/17
--- OUTSIDE RECORDS SUMMARY | 2025-01-20 02:29 | XMS_ITS | Encounter Summary ---
Author Organization [facility] Address Formerly [facility] [email or web address] [address] Phone Care Team Providers Care Plunger Scoop Operator Name Role Phone Ross Wise MD Primary Care Provider [phone] Ross Wise MD Unavailable [phone] Ange Padilla OT Unavailable [phone] Ange Padilla OT Unavailable [phone] Carrie Cho MD Unavailable [phone] Ange Padilla OT Unavailable [phone] Encounter Details Date Type Department Care Team (Late st Contact Info) Description 12/08/2021 Procedure Pass [facility], Ct Scan - [address] [address] Social History Tobacco Use Types Packs/Day Years [...] 4:14 PM EDT Kristen Perrin RN * [place] Suicide Severity Rating Scale (Screener/Recent Self-Report) Question [...] Description 02/01/2025 2:20 PM EST Telemedicine [facility] SUPPORT 2 [place] [address] Hannah Schneider FNP [address] [phone] 02/15/2025 11:00 AM EST Office Visit [facility] Services [address] [place] [address] Ross Wise MD [address] [place] [address], [address] [place] [address] Zahra Albert OT 8 [place] [address] 02/16/2025 2:40 PM EST Office Visit [facility] [address] [place] [address] 3rd Floor, [address] [place] [address] Ang Golden MD 22 [facility], [address] [address] documented as of this encounter Visit Diagnoses Not on filedocumented in this encounter Additional Health Concerns Infection Onset Date Last Indicated Resolved Time CoV-Risk Comment:Neg covid 12/15/2022 12/15/2022 12/16/2022 7:41 AM E DT Assessment Noted Time PHQ-2 Depression Total Score: 1 11/04/19 20 3:40 PM EDT documented as of this encounter Care Teams Plunger Scoop Operator Relationship Specialty Start Date End Date Ross Wise MD 22 [facility], [address] [place] [address] PCP - General Family Medicine 01/12/14 Ross Wise MD 22 [facility], [address] [place] [address] Insurance Assigned Provider 06/07/23 Ange Padilla, OT [address] [place] [address] Transitions Sales Program Coordinator 12/10/21 2 Ange Padilla, OT [address] [place] [address] Transitions Sales Program Coordinator 12/27/21 01/01/22 Carrie Cho MD [address] [place] [address] Neurology 02/21/23 Ange Padilla, OT [address] [place] [address] Transitions Sales Program CoordinatorDeicer Repairer Therapy 09/15/2301/24 documented as of this encounter Additional Source Comments The information contained in this document represents components of the legal health record. It is not the complete legal health record.[facility]
--- OUTSIDE RECORDS SUMMARY | 2025-01-20 02:29 | XMS_ITS | Encounter Summary ---
Author Organization [facility] Address [address] [place] [address] Phone Care Team Providers Care Airport Clerk Name Role Phone Ross Wise MD Primary Care Provider [phone] Ross Wise MD Unavailable [phone] Carrie Cho MD Unavailable [phone] Ange Padilla OT Unavailable [phone] Encounter Details Date Type Department Care Team (Late st Contact Info) Description 09/08/2023 Procedure Pass [facility], Ct Scan - [address] [address] Social History Tobacco Use Types Packs/Day Years [...] Info) Description 02/01/2025 2:20 PM EST Telemedicine [facility]UAL CLINIC SUPPORT 2 [place] [address] Hannah Schneider FNP [address] [phone] 02/15/2025 11:00 AM EST Office Visit [facility] Rehabilitation Services [address] [place] [address] Ross Wise MD [address] [place] [address], [address] [place] [address] Zahra Albert OT 8 [place] [address] 02/16/2025 2:40 PM EST Office Visit [facility] [address] [place] [address] 3rd Floor, [address] [place] [address] Ang Golden MD [address] [place] [address], [address] [address] documented as of this encounter Visit Diagnoses Not on filedocumented in this encounter Additional Health Concerns Assessment Noted Time PHQ-2 Depression Total Score: 1 08/27/19 23 3:17 PM EDT documented as of this encounter Care Teams Airport Clerk Relationship Specialty Start Date End Date Ross Wise MD [address] [place] [address], [address] [place] [address] [email or web address] PCP - General Family Medicine 01/12/14 Ross Wise MD [address] [place] [address], [address] [place] [address] [email or web address] Insurance Assigned Provider 06/07/23 Carrie Cho MD [address] [place] [address] Neurology 02/21/23 Ange Padilla, OT [address] [place] [address] [email or web address] Transitions Brake SpecialistTobacco Scrap Sifter Therapy 09/15/2301/24 documented as of this encounter Additional Source Comments The information contained in this document represents components of the legal health record. It is not the complete legal health record.[facility]
--- OUTSIDE RECORDS SUMMARY | 2025-01-20 02:29 | XMS_ITS | Encounter Summary ---
Author Organization [facility] Address [facility] [address] [place] [address] Phone Care Team Providers Care Geography Faculty Member Name Role Phone Ross Wise MD Primary Care Provider [phone] Ross Wise MD Unavailable [phone] Carrie Cho MD Unavailable [phone] Ange Padilla OT Unavailable [phone] Encounter Details Date Type Department Care Team (Late st Contact Info) Description 10/30/2022 Procedure Pass [facility], Ct Scan - [address] [address] Social History Tobacco Use Types Packs/Day Years [...] 3:50 PM EDT Viet Oneill RN * [place] Suicide Severity Rating Scale (Screener/Recent Self-Report) Question [...] Info) Description 02/01/2025 2:20 PM EST Telemedicine [facility] SUPPORT 2 [place] [address] Hannah Schneider FNP [address] [phone] 02/15/2025 11:00 AM EST Office Visit [facility] Services [address] [place] [address] Ross Wise MD 22 [facility], [address] [place] [address] Zahra Albert OT 8 [place] [address] 02/16/2025 2:40 PM EST Office Visit [facility] [address] Floor, [address] [place] [address] Ang Golden MD 22 [facility], [address] [place] [address] [email or web address] documented as of this encounter Visit Diagnoses Not on filedocumented in this encounter Additional Health Concerns Infection Onset Date Last Indicated Resolved Time CoV-Risk Comment:Neg covid 12/15/2022 12/15/2022 12/16/2022 7:41 AM E DT Assessment Noted Time PHQ-2 Depression Total Score: 1 08/27/19 23 3:17 PM EDT documented as of this encounter Care Teams Geography Faculty Member Relationship Specialty Start Date End Date Ross Wise MD [address] [place] [address], [address] [place] [address] PCP - General Family Medicine 01/12/14 Ross Wise MD [address] [place] [address], [address] [place] [address] Insurance Assigned Provider 06/07/23 Carrie Cho MD [address] [place] [address] Neurology 02/21/23 Ange Padilla, OT [address] [place] [address] Transitions Field Research AssociateCulture Manager Therapy 09/15/2301/24 documented as of this encounter Additional Source Comments The information contained in this document represents components of the legal health record. It is not the complete legal health record.[facility]
--- OUTSIDE RECORDS SUMMARY | 2025-01-20 02:29 | XMS_ITS | Encounter Summary ---
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 [address] [place] [address] Phone: tel: Referral ID Status Reason Start Date Expiration Date Visits Re quested Visits Authorized [id number] Closed 12/28/2018 12/29/2019 99 99 Encounter Details Date Type Department Care Team (Latest Contact Info) Description 12/28/2018 Transcribe Orders [facility] [address] [place] [address] Carrie Cho MD [address] [place] [address] Spinocerebellar ataxia (Primary Dx); Ataxia Social History [...] Info) Description 02/01/2025 2:20 PM EST Telemedicine [facility] SUPPORT 2 [place] [address] Hannah Schneider FNP [address] [phone] 02/15/2025 11:00 AM EST Office Visit [facility] [address] [place] [address] Ross Wise MD 22 [facility], [address] [place] [address] Zahra Albert OT 8 [place] [address] 02/16/2025 2:40 PM EST Office Visit [facility] [address] [place] [address] 3rd Floor, [address] [place] [address] Ang Golden MD 22 [facility], [address] [place] [address] Scheduled Referrals Name Type Priority Associated Diagnoses Order Schedule Ambulatory referral to [facility] Physical Therapy Outpatient Referral Routine Spinocerebellar ataxia Ataxia Ordered: 12/28/2018 documented as of this encounter Visit Diagnoses 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 Lack of coordination documented in this encounter Additional Health Concerns Infection Onset Date Last Indicated Resolved Time CoV-Risk Comment:Neg covid 12/15/2022 12/15/2022 12/16/2022 7:41 AM E DT documented as of this encounter Care Teams Pad Machine Feeder Relationship Specialty Start Date End Date Ross Wise MD 22 [facility], [address] [place] [address] [email or web address] PCP - General Family Medicine 01/12/14 Ross Wise MD [address] [place] [address], [address] [place] [address] [email or web address] Insurance Assigned Provider 06/07/23 Ange Padilla, OT 30 [place] [address] [email or web address] Transitions Helicopter Technician 12/10/21 2 Ange Padilla, OT [address] [place] [address] [email or web address] Transitions Helicopter Technician 12/27/21 01/01/22 Carrie Cho MD [address] [place] [address] Neurology 02/21/23 Ange Padilla, OT [address] [place] [address] [email or web address] Transitions Helicopter TechnicianSuperintendent Radio Communications Therapy 09/15/2301/24 documented as of this encounter Additional Source Comments The information contained in this document represents components of the legal health record. It is not the complete legal health record.[facility]
--- OUTSIDE RECORDS SUMMARY | 2025-01-20 02:29 | XMS_ITS | Encounter Summary ---
Author Organization [facility] Address [facility] [address] [place] [address] Phone Care Team Providers Care Clarification Operator Name Role Phone Ross Wise MD Primary Care Provider [phone] Ross Wise MD Unavailable [phone] Carrie Cho MD Unavailable [phone] Ange Padilla OT Unavailable [phone] Encounter Details Date Type Department Care Team (Late st Contact Info) Description 12/15/2022 Procedure Pass [facility], Ct Scan - [address] [address] Social History Tobacco Use Types Packs/Day Years [...] 1:09 PM EDT Carolyn Dhaliwal RN * [place] Suicide Severity Rating Scale (Screener/Recent Self-Report) Question [...] Info) Description 02/01/2025 2:20 PM EST Telemedicine [facility] CLINIC SUPPORT 2 [place] [address] Hannah Schneider FNP [address] [phone] 02/15/2025 11:00 AM EST Office Visit [facility] Services [address] [place] [address] Ross Wise MD 22 [facility], [address] [place] [address] Zahra Albert OT 8 [place] [address] 02/16/2025 2:40 PM EST Office Visit [facility] [address], [address] [place] [address] Ang Golden MD 22 [facility], [address] [place] [address] [email or web address] documented as of this encounter Visit Diagnoses Not on filedocumented in this encounter Additional Health Concerns Infection Onset Date Last Indicated Resolved Time CoV-Risk Comment:Neg covid 12/15/2022 12/15/2022 12/16/2022 7:41 AM E DT Assessment Noted Time PHQ-2 Depression Total Score: 1 08/27/19 23 3:17 PM EDT documented as of this encounter Care Teams Clarification Operator Relationship Specialty Start Date End Date Ross Wise MD 22 [facility], [address] [place] [address] [email or web address] PCP - General Family Medicine 01/12/14 Ross Wise MD 22 [facility], [address] [place] [address] [email or web address] Insurance Assigned Provider 06/07/23 Carrie Cho MD 41 [place] [address] Neurology 02/21/23 Ange Padilla, OT [address] [place] [address] [email or web address] Transitions Wood CabinetmakerDry Color Tester Therapy 09/15/2301/24 documented as of this encounter Additional Source Comments The information contained in this document represents components of the legal health record. It is not the complete legal health record.[facility]
--- OUTSIDE RECORDS SUMMARY | 2025-01-20 02:29 | XMS_ITS | Encounter Summary ---
Author Organization [facility] Address [facility] [address] [address] Phone Care Team Providers Care Instructional Technology Teacher Name Role Phone Rsos Wise MD Primary Care Provider [phone] Ross Wise MD Unavailable [phone] Ange Padilla OT Unavailable [phone] Ange Padilla OT Unavailable [phone] Carrie Cho MD Unavailable [phone] Ange Padilla OT Unavailable [phone] Encounter Details Date Type Department Care Team (Late st Contact Info) Description 11/25/2020 Procedure Pass [facility], Ct Scan - [address] [address] Social History Tobacco Use Types Packs/Day Years [...] Info) Description 02/01/2025 2:20 PM EST Telemedicine [facility] CLINIC SUPPORT 2 [place] [address] Hannah Schneider FNP [address] [address] 02/15/2025 11:00 AM EST Office Visit [facility] Rehabilitation Services 8 [place] [address] Ross Wise MD 22 [facility], [address] [place] [address] Zahra Albert OT 8 [place] [address] 02/16/2025 2:40 PM EST Office Visit [facility] [address] [place] [address] 3rd Floor, [address] [place] [address] Ang Golden MD 22 [facility], [facility] 301 [place] [address] documented as of this encounter Visit Diagnoses Not on filedocumented in this encounter Additional Health Concerns Infection Onset Date Last Indicated Resolved Time CoV-Risk Comment:Neg covid 12/15/2022 12/15/2022 12/16/2022 7:41 AM E DT Assessment Noted Time PHQ-2 Depression Total Score: 1 11/04/19 20 3:40 PM EDT documented as of this encounter Care Teams Instructional Technology Teacher Relationship Specialty Start Date End Date Ross Wise MD [address] [place] [address], [address] [place] [address] PCP - General Family Medicine 01/12/14 Ross Wise MD [address] [place] [address], [address] [place] [address] Insurance Assigned Provider 06/07/23 Padilla Ange Christin, OT [address] [place] [address] Transitions Benefits Consultant 12/10/21 2 Ange Padilla, OT [address] [place] [address] [email or web address] Transitions Benefits Consultant 12/27/21 01/01/22 Carrie Cho MD [address] [place] [address] Neurology 02/21/23 Ange Padilla, OT [address] [place] [address] [email or web address] Transitions Benefits ConsultantLiving Advisor Therapy 09/15/2301/24 documented as of this encounter Additional Source Comments The information contained in this document represents components of the legal health record. It is not the complete legal health record.[facility]
--- OUTSIDE RECORDS SUMMARY | 2025-01-20 02:29 | XMS_ITS | Encounter Summary ---
Author Organization [facility] Address [facility] [address] [address] Phone Care Team Providers Care Manager Filter Name Role Phone Ross Wise MD Primary Care Provider [phone] Ross Wise MD Unavailable [phone] Ange Padilla OT Unavailable [phone] Ange Padilla OT Unavailable [phone] Carrie Cho MD Unavailable [phone] Ange Padilla OT Unavailable [phone] Encounter Details Date Type Department Care Team (Late st Contact Info) Description 12/08/2021 Procedure Pass [facility], Ct Scan - [address] [address] Social History Tobacco Use Types Packs/Day Years [...] 4:14 PM EDT Kristen Perrin RN * [place] Suicide Severity Rating Scale (Screener/Recent Self-Report) Question [...] Info) Description 02/01/2025 2:20 PM EST Telemedicine [facility] CLINIC SUPPORT 2 [place] [address] Hannah Schneider FNP [address] [phone] 02/15/2025 11:00 AM EST Office Visit [facility] Services [address] [place] [address] Ross Wise MD [address] [place] [address], [address] [place] [address] Zarha Albert OT 8 [place] [address] 02/16/2025 2:40 PM EST Office Visit [facility] [address] [place] [address] 3rd Floor, [address] [place] [address] Ang Golden MD 22 [facility], [address] [address] documented as of this encounter Visit Diagnoses Not on filedocumented in this encounter Additional Health Concerns Infection Onset Date Last Indicated Resolved Time CoV-Risk Comment:Neg covid 12/15/2022 12/15/2022 12/16/2022 7:41 AM E DT Assessment Noted Time PHQ-2 Depression Total Score: 1 11/04/19 20 3:40 PM EDT documented as of this encounter Care Teams Manager Filter Relationship Specialty Start Date End Date Ross Wise MD 22 [facility], [address] [place] [address] PCP - General Family Medicine 01/12/14 Ross Wise MD 22 [facility], [address] [place] [address] Insurance Assigned Provider 06/07/23 Ange Padlila, OT [address] [place] [address] Transitions Keymodule Assembly Supervisor 12/10/21 2 Ange Padilla, OT [address] [place] [address] Transitions Keymodule Assembly Supervisor 12/27/21 01/01/22 Carrie Cho MD [address] [place] [address] Neurology 02/21/23 Ange Padilla, OT [address] [place] [address] Transitions Keymodule Assembly SupervisorUnderwriting Account Representative Therapy 09/15/2301/24 documented as of this encounter Additional Source Comments The information contained in this document represents components of the legal health record. It is not the complete legal health record.[facility]
--- OUTSIDE RECORDS SUMMARY | 2025-01-20 02:29 | XMS_ITS | Encounter Summary ---
Author Organization [facility] Address [facility] [employer] [address] [address] Phone Care Team Providers Care Spray Blender Name Role Phone Ross Wise MD Primary Care Provider [phone] Ross Wise MD Unavailable [phone] Ange Padilla OT Unavailable [phone] Ange Padilla OT Unavailable [phone] Carrie Cho MD Unavailable [phone] Ange Padilla OT Unavailable [phone] Encounter Details Date Type Department Care Team (Late st Contact Info) Description 12/10/2021 Procedure Pass [facility] [address] [place] [address] Social History Tobacco Use Types Packs/Day Years [...] Info) Description 02/01/2025 2:20 PM EST Telemedicine [facility] 2 [place] [address] Hannah Schneider FNP [address] [phone] 02/15/2025 11:00 AM EST Office Visit [facility] [address] [place] [address] Ross Wise MD 22 [facility], [address] [place] [address] [email or web address] Zahra Albert OT 8 [place] [address] [email or web address] 02/16/2025 2:40 PM EST Office Visit [facility] [address], [address] [place] [address] Ang Golden MD 22 [facility], [facility] [address] [place] [address] [email or web address] documented as of this encounter Visit Diagnoses Not on filedocumented in this encounter Additional Health Concerns Infection Onset Date Last Indicated Resolved Time CoV-Risk Comment:Neg covid 12/15/2022 12/15/2022 12/16/2022 7:41 AM E DT Assessment Noted Time PHQ-2 Depression Total Score: 1 11/04/19 20 3:40 PM EDT documented as of this encounter Care Teams Spray Blender Relationship Specialty Start Date End Date Ross Wise MD [address] [place] [address], [address] [place] [address] [email or web address] PCP - General Family Medicine 01/12/14 Ross Wise MD [address] [place] [address], [address] [place] [address] [email or web address] Insurance Assigned Provider 06/07/23 Ange Padilla, OT 30 [place] [address] Transitions Band Instrument Repairer 12/10/21 2 Ange Padilla, OT [address] [place] [address] [email or web address] Transitions Band Instrument Repairer 12/27/21 01/01/22 Carrie Cho MD [address] [place] [address] Neurology 02/21/23 Ange Padilla, OT [address] [place] [address] [email or web address] Transitions Band Instrument RepairerAt Home Independent Call Center Agent Therapy 09/15/2301/24 documented as of this encounter Additional Source Comments The information contained in this document represents components of the legal health record. It is not the complete legal health record.[facility]
--- OUTSIDE RECORDS SUMMARY | 2025-01-20 02:29 | XMS_ITS | Clinical Summary ---
Author Organization [facility] Address [address] [place] [address] Care Team Providers Care Gyro Compass Tester Name Role Phone Ross Wise MD Primary Care Provider [phone] Allergies Active Allergy Reactions Criticality Noted Date [...] Given: No Passive Exposure Comments:unknown-PT poor historian [facility] Utilities Answer Date Recorded In [...] place to sleep or slept in a nursing home (including now)? No 09/10/2023 Sex and Gender [...] topic Insurance MEDICARE PART A & B [facility] Advance Directives * Full Code (Latest Code Status on File) Date Activated Date Inactivated Comments 09/09/2023 1:48 PM Care Teams Gyro Compass Tester Relationship Specialty Start Date End Date Ross Wise MD 22 [facility] 201 [place] [address] PCP - General Pediatric, General 09/09/23
--- OUTSIDE RECORDS SUMMARY | 2025-01-20 02:29 | XMS_ITS | Clinical Summary ---
Author Organization [facility] Address [facility] [employer] [address] [address] Phone Care Team Providers Care Technical Delivery Manager Name Role Phone Ellen Gomes MD Primary Care Provider [phone] Ellen Gomes MD Unavailable [phone] Carrie Cho MD Unavailable [phone] Allergies Active Allergy Reactions Criticality Noted Date [...] sent to pharmacy. Orders: Ambulatory referral to [facility] Physical Therapy Assessment & Plan (10/19/2023 [...] and jerking movement. 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 [...] had an echocardiogram done on the . 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 Patient last seen by neurology at [facility] urgent jani Tse for consult re genetics. 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 Episodes triggered by stress patient reports that he has a neurologist that he sees regularly at [facility] , seen yearly, Dr Cho?. Patient presently not on any medications for his ataxia disorder Has tried medication in the past. Obstructive sleep apnea hypopnea, severe 019 Overview (06/03/2018): Sleep test at home with [facility], on CPAP 03/2018 Primary narcolepsy with cataplexy [...] by DNA sequencing per Dr. Rm at [facility] Assessment & Plan (08/15/2024 9:30 PM EDT): [...] to participate with the undiagnosed disease at [facility]. He is generally fatigued, and feeling depressed. I advised that it would be reasonable for him to see the neurologist in [place] for consultation and then make a decision. [...] and cataplexy. Patient is followed at the [facility] clinic by Dr Cho, patient has [...] Type Department Care Team Description 01/10/2025 Telephone [facility] -[facility] TEAM [address] [place] [address] Ellen Gomes MD Care Coordination ([facility] Virtual AW[facility] Outreach/) 12/29/2024 Telephone [facility] TEAM [address] [place] [address] Ellen Gomes MD [facility] Coordination [facility] 12/25/[address] [place] [address] Ellen Gomes MD Medication Refill 12/01/[address] [place] [address] Ellen Gomes MD Request For Order(s) 11/30/2024 12:30 PM EDT Home Care Visit [facility] [address] [place] [phone] Rosalind Obrien, PT NON ADMIT HOME HEALTH VISIT 11/24/2024 Home Care Visit [facility] [address] [place] [phone] Dasha Ruiz, PT CASE COMMUNICATION 11/20/2024 Home Care Visit [facility] [address] [place] [phone] Nanci Encinas, CHANCE CASE COMMUNICATION 11/19/2024 Home Care Visit [facility] [address] [place] [phone] Musa Muhammad, PT CASE COMMUNICATION 11/18/2024 Home Care Visit [facility] [address] [place] [phone] Musa Muhammad, PT CASE COMMUNICATION 11/17/2024 Home Care Visit [facility] [address] [place] [phone] Musa Muhammad, PT TELEPHONE ENCOUNTER 10/30/2024 Orders Only [facility] [address] [place] [phone] Homehealth, Interface ProviderMD 10/29/2024 4:00 PM EDT Office Visit [address] [place] [address] Ellen Gomes MD Recurrent major depressive disorder, in partial remission (Primary Dx); Familial cerebellar ataxia; Seizure; Primary narcolepsy with cataplexy; Essential hypertension 10/25/[address] [place] [address] Ellen Gomes MD Medication Prior Authorization (Prozac 40 mg capsules) from Last 3 Months Immunizations Immunization Administration [...] Ataxia Niece [facility] 8 followed a t [place] Ataxia Sister 1 paralysis Ataxia Sister 2 [...] Info) Description 02/01/2025 2:20 PM EST Telemedicine [facility] 2 [place] [address] Hannah Schneider FNP [address] [phone] 02/15/2025 11:00 AM EST Office Visit [facility] [address] [place] [address] Ellen Gomes MD 22 [facility], [address] [place] [address] Zahra Albert OT 8 [place] [address] 02/16/2025 2:40 PM EST Office Visit [facility] [address] [place] [address] [address]rd Floor, [address] [place] [address] Ang Golden MD 22 [facility], [facility] 301 [place] [address] Health Maintenance Due Date Last Done Comments [...] Additional history exists POTASSIUM LEVEL 10/07/2024 10/08/2023, 09/02, 09/16/2023, Additional history exists COVID-19 VACCINE ( [...] EDT) SODIUM 138 133 - 146 mmol/L [facility] CHLORIDE 99 96 - 108 mmol/L [facility] POTASSIUM 5.3(H) 3.3 - 5.1 mmol/L [facility] CO2 29 21 - 35 mmol/L [facility] BUN 32(H) 6 - 19 mg/dL [facility] CREATININE 1.10 0.5 - 1.5 mg/dL [facility] GLUCOSE 84 70 - 99 mg/dL [facility] CALCIUM 9.4 8.4 - 10.3 mg/dL [facility] EGFR 70 >59 mL/min/1.7 3m2 [facility] Comment:Estimated glomerular filtration rate calculated using the CKD-EPI refit equation. ANION GAP 15 10 - 20 mmol/L [facility] Blood 10/08/2023 11:3 0 AM EDT 10/08/2023 3:04 PM EDT us Tyrone Moss MD LAB BLOOD BKR ORDERABLES Final R esult [address] [id number] * Lipid panel (12/15/2022 2:35 PM EDT) HDL 49 mg/dL [facility] Comment: Interpretation <40 mg/dL: Low HDL cholesterol (major risk factor for CHD) Greater than or equal to 60 mg/dL: High HDL cholesterol ( negative risk factor for CHD) HDL - cholesterol is affected by a number of factors, e.g. smoking, excerise, hormones, sex and age. CHOLESTEROL 169 0 - 240 mg/dL [facility] TRIGLYCERIDES 56 30 - 160 mg/dL [facility] LDL 109 50 - 129 mg/dL [facility] Comment: LDL levels in terms of risk for coronary heart disease: <100 mg/dL: Optimal 100-129 mg/dL: Near or above optimal 130-159 mg/dL: Borderline high 160-189 mg/dL: High >190 mg/dL: Very High CARDIAC RISK RATIO 3.4 3.4 - 5.0 [facility] Blood 12/15/2022 2:35 PM EDT 12/15/2022 2:42 PM EDT us Dedrick Spann MD LAB BLOOD BKR ORDERABLES Fi nal Result [facility] [address] [place] [address] * COLONOSCOPY FOR RESULT ENTRY ONLY (01/12/2019) us Historical Provider HEALTH MAINTENANCE Edited Result - Final from Last 3 Months or Most Recently Relevant to Health Maintenance Insurance MEDICARE PART A & B [employer] MED[employer] SUPPLEMENT MEDICARE PART A & B [employer] MEDEX SUPPLEMENT MEDICARE PART A & B [employer] MEDEX SUPPLEMENT MEDICARE PART A & B [employer] MEDEX SUPPLEMENT MEDICARE PART A & B BLUE [employer] MEDEX SUPPLEMENT MEDICARE PART A & B [employer] MEDEX SUPPLEMENT MEDICARE PART A & B BLUE [employer]OSS MEDEX SUPPLEMENT MEDICARE PART A & B BLUE [employer] MEDEX SUPPLEMENT MEDICARE PART A & B BLUE [employer]OSS MEDEX SUPPLEMENT Advance Directives For more information, please contact: [phone] (9AM - 5PM [facility], Friday-Friday) Documents on File Type Date Recorded Patient Craft Manager Expl anation Healthcare Proxy 06/01/2021 HEALTH CARE [...] Agent (Proxy form on file) Care Teams Technical Delivery Manager Relationship Specialty Start Date End Date Ellen Gomes MD [address] [place] [address], [address] [place] [address] PCP - General Family Medicine 01/12/14 Ellen Gomes MD [address] [place] [address], [address] [place] [address] [email or web address] Insurance Assigned Provider 06/07/23 Carrie Cho MD [address] [place] [address] Neurology 02/21/23 Additional Source Comments The information contained in this document represents components of the legal health record. It is not the complete legal health record.[facility]
--- OUTSIDE RECORDS SUMMARY | 2025-01-20 02:29 | XMS_ITS | Encounter Summary ---
Author Organization [facility] Address [facility] [address] [place] [phone] Phone Care Team Providers Care Building Maintenance Mechanic Name Role Phone Ross Wise MD Primary Care Provider [phone] Ross Wise MD Unavailable [phone] Carrie Cho MD Unavailable [phone] Ange Padilla OT Unavailable [phone] Encounter Details Date Type Department Care Team (Late st Contact Info) Description 01/25/2023 Procedure Pass [facility], Ct Scan - [address] [address] Social History Tobacco Use Types Packs/Day Years [...] 01/25/2023 12:55 PM Anai Kelly RN * [place] Suicide Severity Rating Scale (Screener/Recent Self-Report) Question [...] Telemedicine [facility] 2 [place] [address] Hannah Schneider FNP [address] [phone] 02/15/2025 11:00 AM EST Office Visit [facility] [address] [place] [address] Ross Wise MD 22 [facility], [address] [place] [address] Zahra Albert OT 8 [place] [address] 02/16/2025 2:40 PM EST Office Visit [facility] [address], [address] [place] [address] Ang Golden MD 22 [facility], [address] [place] [address] [email or web address] documented as of this encounter Visit Diagnoses Not on filedocumented in this encounter Additional Health Concerns Assessment Noted Time PHQ-2 Depression Total Score: 1 08/27/19 23 3:17 PM EDT documented as of this encounter Care Teams Building Maintenance Mechanic Relationship Specialty Start Date End Date Ross Wise MD 22 [facility], [address] [place] [address] [email or web address] PCP - General Family Medicine 01/12/14 Ross Wise MD 22 [facility], [address] [place] [address] [email or web address] Insurance Assigned Provider 06/07/23 Carrie Cho MD [address] [place] [address] Neurology 02/21/23 Ange Padilla, OT [address] [place] [address] [email or web address] Transitions Compressed Yeast SupervisorDiagnostic Cardiac Sonographer Therapy 09/15/2301/24 documented as of this encounter Additional Source Comments The information contained in this document represents components of the legal health record. It is not the complete legal health record.[facility]
== END ==
LOC: HO.HSM 14:07
PROVIDERS: PCP Pediatrics; Visit Provider Registered Nurse
DX: G40.909 Epilepsy, unspecified, not intractable, without status epilepticus (principal); G11.9 Hereditary ataxia, unspecified; R42 Dizziness and giddiness; G47.429 Narcolepsy in conditions classified elsewhere without cataplexy
CPT/HCPCS: 99214